=== PATIENT | female | born 1990 | race Caucasian/White ===

== ENCOUNTER 2016-08-31 01:17 | Emergency (ER) | payer BC ==
[2016-08-31] MEDS ORDERED: Ibuprofen TAB* 600 MG PO ONE (02:36)
[2016-08-31 03:29] VITALS: BP 133/72
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
== END 2016-08-31 03:28 | disposition home or self-care (01) ==
LOC: ED 01:17
DX: S09.90XA Unspecified injury of head, initial encounter (principal); S13.9XXA Sprain of joints and ligaments of unspecified parts of neck, initial encounter; M54.9 Dorsalgia, unspecified; S00.83XA Contusion of other part of head, initial encounter; R04.0 Epistaxis; R58 Hemorrhage, not elsewhere classified; Y09 Assault by unspecified means; Y93.9 Activity, unspecified; Y92.9 Unspecified place or not applicable
CPT/HCPCS: 70450; 71020; 72050; 99282; A9270-GY

== ENCOUNTER 2016-11-04 09:25 | Emergency (ER) | payer BC ==
[2016-11-04] MEDS ORDERED: Morphine INJ* 4 MG/ML 1 ML SYRINGE IV ONE (10:16)
[2016-11-04] MEDS ORDERED: Ondansetron INJ* 2 MG/ML VIAL IV ONE (10:16)
[2016-11-04] MEDS: NS 0.9% 1000 ML* 2,000 ML IV ONE (10:48)
[2016-11-04 11:00] LABS: Hematocrit 38 % (35-47); Hemoglobin 12.9 g/dl (12.0-16.0); Mean Corpuscular HGB Conc 34 g/dl (31-36); Mean Corpuscular Hemoglobin 32 pg (27-31); Mean Corpuscular Volume 95 fL (80-97); Mean Platelet Volume 8 um3 (7.4-10.4); Red Blood Count 3.98 10^6/ul (4.0-5.4); Red Cell Distribution Width 13 % (10.5-15); White Blood Count 7.6 10^3/ul (3.5-10.8)
[2016-11-04 11:02] LABS: Urine Bilirubin Negative (Negative); Urine Glucose Negative (Negative); Urine Nitrite Negative (Negative)
[2016-11-04 11:19] LABS: Albumin 4.3 g/dL (3.2-5.2); BUN/Creatinine Ratio 25.4 (8-20); C Reactive Protein 2.52 mg/L (< 5.00); Calcium 9.3 mg/dL (8.6-10.3); EGFR African American 135.8 (>60); EGFR Non-African American 105.6 (>60); Globulin 3.1 g/dL (2-4); Potassium 4.4 mmol/L (3.5-5.0); Total Bilirubin 0.3 mg/dL (0.2-1.0); Total Protein 7.4 g/dL (6.4-8.9)
[2016-11-04] MEDS ORDERED: Iohexol 300* (CONTRAST) 10 ML SDV IV ONE (11:33)
--- NOTE | 2016-11-04 12:11 | RAD ---
INDICATION: Left pelvic pain COMPARISON: CT November 04, 2016; pelvic sonogram 2016 TECHNIQUE: Longitudinal and transverse transvaginal scans of the pelvis were obtained. FINDINGS: Uterus: The uterus is normal in size. There are no focal masses. The uterus measures 6.5 x 2.6 x 4.3 cm. Endometrial thickness: The endometrial thickness is measured at 0.2 cm. There is an IUD in expected position. Free fluid: There is no significant free fluid . Ovaries: The ovaries are normal in size. The right ovary measures 2.7 x 1.5 x 2.4 cm. The left ovary measures 2.5 x 1.8 x 1.8 cm. There are small follicles bilaterally.. Doppler interrogation demonstrates flow to each ovary. Other: None IMPRESSION: MULTIPLE SMALL FOLLICLES. IUD IN EXPECTED POSITION.
--- NOTE | 2016-11-04 12:21 | RAD ---
INDICATION: Abdominal pain. Rectal bleeding. History of ulcerative colitis. COMPARISON: CT May 22, 2016 TECHNIQUE: Axial source images were obtained from the hemidiaphragms to the symphysis pubis following administration of oral and intravenous contrast. 85 mL Omnipaque 300 was utilized. Coronal and sagittal reconstructed images were acquired. Lung bases: The lung bases are clear. Liver: The liver is normal in size. There are no masses. There is no ductal dilatation. Gallbladder: There are no calcified gallstones. There is no evidence of wall thickening or pericholecystic fluid. Spleen: The spleen is normal in size. There are no masses. Pancreas: There is no focal pancreatic mass or ductal dilatation. Adrenal glands: There is no evidence of adrenal mass. Kidneys: The kidneys are normal in size and position. There are prompt nephrograms and there is prompt excretion bilaterally. There are no renal parenchymal masses. There is no evidence of nephrolithiasis. Adenopathy: There is no evidence of adenopathy by size criteria. Fluid collections: There are no free or localized fluid collections. Vessels:There are no significant atherosclerotic changes involving the aorta. There is no focal aneurysm. The iliac vessels are normal in caliber. The IVC appears normal. GI tract: There is limited oral contrast opacification. There is a small amount of contrast within the small bowel. The stomach is grossly normal. The the small bowel is normal. The appendix is normal. There is stool throughout the right and transverse colon. The descending colon is decompressed. The may be minor mucosal thickening. Evaluation is limited as the bowel is not distended and there is no oral contrast. There are no findings of obstruction. There are no findings of perforation Pelvic organs: The uterus and adnexa appear normal. There is an IUD in expected position Bladder: There are no bladder masses. Abdominal and pelvic soft tissues: The extraperitoneal abdominal and pelvic soft tissues appear normal.. Osseous structures: There are no acute osseous findings. Other: None IMPRESSION: NO ACUTE CT FINDINGS. NO MASS OR INFLAMMATORY CHANGES.
[2016-11-04 14:18] VITALS: BP 136/84
--- NOTE | 2016-11-04 18:34 | ED ---
Jayme Luna Benjamin, scribed for Eric Ricks MD on 11/04/16 at 1020 . Abdominal Pain/Female - HPI Summary HPI Summary: 25yo female c/o LLQ pain and bright red bloody BM for 3-4 weeks. Pt started to get nauseous as well recently. Pt states that her pain worsens when she has BM. Pt denies any back pain. Pt has hx of ulcerative colitis, but was off meds for a year. Pt is also concerned about an ovarian cyst. Pt drinks ETOH occasionally , and does not smoke cigarettes. - History of Current Complaint Chief Complaint: EDAbdPain Stated Complaint: ABD PAIN Time Seen by Provider: 11/04/16 09:56 Hx Obtained From: Patient Hx Last Menstrual Period: 06/29/14 Onset/Duration: Gradual Onset, Lasting Weeks - 3-4 weeks, Still Present, Worse Since - few days Timing: Constant Severity Initially: Moderate Severity Currently: Moderate Pain Intensity: 7 Location: Discrete At: LLQ Radiates: No Aggravating Factor(s): Other: - BM Alleviating Factor(s): Nothing Associated Signs and Symptoms: Positive: Blood in Stool, Nausea, Vomiting, Diarrhea. Negative: Back Pain Allergies/Adverse Reactions: Allergies Allergy/AdvReac Type Severity Reaction Status Date / Time Latex Allergy Mild Rash Verified 10/15/15 09:38 PMH/Surg Hx/FS Hx/Imm Hx Endocrine/Hematology History: Reports: Hx Anemia Denies: Hx Anticoagulant Therapy, Hx Blood Disorders, Hx Blood Transfusions, Hx Bone Marrow Disease, Hx Diabetes, Hx Systemic Lupus Erythematosus, Hx Sickle Cell Disease, Hx Thyroid Disease, Hx Unexplained Bleeding Cardiovascular History: Reports: Other Cardiovascular Problems/Disorders - Tachy -admitted to [facility] on 08/30/13 Denies: Hx Aneurysm, Hx Angina, Hx Angioplasty, Hx Auto Implanted Cardiovert Defib, Hx Cardiac Arrest, Hx Cardiomegaly, Hx Congenital Heart Disease, Hx Congestive Heart Failure, Hx Coronary Artery Disease, Hx Deep Vein Thrombosis, Hx Embolism, Hx Hypercholesterolemia, Hx Hypotension, Hx Hypertension, Hx Pacemaker/ICD, Hx Peripheral Vascular Disease, Hx Rheumatic Fever, Hx Syncope, Hx Valvular Heart Disease Respiratory History: Reports: Hx Seasonal Allergies Denies: Hx Asthma, Hx Chronic Bronchitis, Hx Chronic Obstructive Pulmonary Disease (COPD), Hx Cystic Fibrosis, Hx Lung Cancer, Hx Pleural Effusion, Hx Pneumonia, Hx Pulmonary Edema, Hx Pulmonary Embolism, Hx Sleep Apnea GI History: Reports: Hx Irritable Bowel, Other GI Disorders - Ulcerative colitis Denies: Hx Cirrhosis, Hx Crohn's Disease, Hx Diverticulosis, Hx Gall Bladder Disease, Hx Gastroesophageal Reflux Disease, Hx Gastrointestinal Bleed, Hx Hiatal Hernia, Hx Jaundice, Hx Obstructive Bowel, Hx Ileostomy, Hx Pyloric Stenosis, Hx Ulcer Sensory History: Reports: Hx Contacts or Glasses Denies: Hx Cataracts, Hx Eye Injury, Hx Eye Prosthesis, Hx Glaucoma, Hx Legally Blind, Hx Macular Degeneration, Hx Vision Problem, Hx Deafness, Hx Hearing Aid, Hx Hearing Problem, Other Sensory Impairments Opthamlomology History: Reports: Hx Contacts or Glasses Denies: Hx Cataracts, Hx Eye Injury, Hx Eye Prosthesis, Hx Glaucoma, Hx Legally Blind, Hx Macular Degeneration, Hx Vision Problem, Other Sensory Impairments Neurological History: Reports: Hx Headaches - after remicade infusions, Hx Migraine Denies: Hx Dementia, Hx Developmental Delay, Hx Nerve Disease, Hx Seizures, Hx Spinal Cord Injury, Hx Transient Ischemic Attacks (TIA) Psychiatric History: Denies: Hx Panic Disorder - Surgical History Surgery Procedure, Year, and Place: Hammer toe corrections, tear duct, cyst removed from left wrist, tonsillectomy Hx Anesthesia Reactions: No - Immunization History Date of Tetanus Vaccine: within 10 years Date of Influenza Vaccine: none Infectious Disease History: No Infectious Disease History: Denies: Hx Clostridium Difficile, Hx Hepatitis, Hx Human Immunodeficiency Virus (HIV), Hx of Known/Suspected MRSA, Hx Shingles, Hx Tuberculosis, Hx Known/ Suspected VRE, Traveled Outside the [place] in Last 30 Days - Family History Known Family History: Positive: Diabetes - Social History Occupation: Employed Full-time Lives: Alone Alcohol Use: Occasionally Hx Substance Use: No Substance Use Type: Reports: None Hx Tobacco Use: No Smoking Status (MU): Never Smoked Tobacco Review of Systems Constitutional: Negative Eyes: Negative ENT: Negative Cardiovascular: Negative Respiratory: Negative Positive: Abdominal Pain - LLQ, Vomiting, Diarrhea - bloody, Nausea Genitourinary: Negative Musculoskeletal: Negative Skin: Negative Neurological: Negative Psychological: Normal All Other Systems Reviewed And Are Negative: Yes Physical Exam - Summary Physical Exam Summary: The patient is well-nourished in no acute distress and in no acute pain. The skin is warm and dry and skin color reflects adequate perfusion. HEENT: The head is normocephalic and atraumatic. The pupils are equal and reactive. The conjunctivae are clear and without drainage. Nares are patent and without drainage. Mouth reveals dry mucous membranes and the throat is without erythema and exudate. The external ears are intact. The ear canals are patent and without drainage. The tympanic membranes are intact. Neck is supple with full range of motion and non-tender. There are no carotid bruits. There is no neck vein distension. Respiratory: Chest is non-tender. Lungs are clear to auscultation and breath sounds are symmetrical and equal. Cardiovascular: Hear is regular rate and rhythm. There is no murmur or rub auscultated. There is no peripheral edema and pulses are symmetrical and equal. Abdomen: The abdomen is soft. LLQ pain. There are normal bowel sounds heard in all four quadrants and there is no organomegaly palpated. Musculoskeletal: There is no back pain noted. No CVA tenderness. Extremities are non-tender with full range of motion. There is good capillary refill. There is no peripheral edema or calf tenderness elicited. Neurological: Patient is alert and oriented to person, place and time. The patient has symmetrical motor strength in all four extremities. Cranial nerves are grossly intact. Deep tendon reflexes are symmetrical and equal in all four extremities. Psychiatric: The patient has an appropriate affect and does not exhibit any anxiety or depression. Triage Information Reviewed: Yes Vital Signs On Initial Exam: Initial Vitals Temp Pulse Resp BP Pulse Ox 97.9 F 71 20 132/77 100 11/04/16 09:28 11/04/16 09:28 11/04/16 09:28 11/04/16 09:28 11/04/16 09:28 Vital Signs Reviewed: Yes Diagnostics - Vital Signs Vital Signs Temp Pulse Resp BP Pulse Ox 11/04/16 09:31 97.9 F 71 20 132/77 100 11/04/16 09:28 97.9 F 71 20 132/77 100 - Laboratory Lab Results: Lab Results 11/04/16 11/04/16 11/04/16 Range/Units 10:43 10:43 10:43 WBC 7.6 (3.5-10.8) 10^3/ul RBC 3.98 L (4.0-5.4) 10^6/ul Hgb 12.9 (12.0-16.0) g/dl Hct 38 (35-47) % MCV 95 (80-97) fL MCH 32 H (27-31) pg MCHC 34 (31-36) g/dl RDW 13 (10.5-15) % Plt Count 294 (150-450) 10^3/ul MPV 8 (7.4-10.4) um3 Neut % (Auto) 56.2 (38-83) % Lymph % (Auto) 36.1 (25-47) % [place] % (Auto) 6.3 (1-9) % Eos % (Auto) 0.9 (0-6) % Baso % (Auto) 0.5 (0-2) % Absolute Neuts (auto) 4.3 (1.5-7.7) 10^3/ul Absolute Lymphs (auto) 2.7 (1.0-4.8) 10^3/ul Absolute Monos (auto) 0.5 (0-0.8) 10^3/ul Absolute Eos (auto) 0.1 (0-0.6) 10^3/ul Absolute Basos (auto) 0 (0-0.2) 10^3/ul Absolute Nucleated RBC 0 10^3/ul Nucleated RBC % 0 Sodium 133 (133-145) mmol/L Potassium 4.4 (3.5-5.0) mmol/L Chloride 102 (101-111) mmol/L Carbon Dioxide 26 (22-32) mmol/L Anion Gap 5 (2-11) mmol/L BUN 17 (6-24) mg/dL Creatinine 0.67 (0.51-0.95) mg/dL Est GFR ( Amer) 135.8 (>60) Est GFR (Non-Af Amer) 105.6 (>60) BUN/Creatinine Ratio 25.4 H (8-20) Glucose 92 (70-100) mg/dL Lactic Acid (0.5-2.0) mmol/L Calcium 9.3 (8.6-10.3) mg/dL Total Bilirubin 0.30 (0.2-1.0) mg/dL AST 23 (13-39) U/L ALT 26 (7-52) U/L Alkaline Phosphatase 70 (34-104) U/L C-Reactive Protein 2.52 (< 5.00) mg/L Total Protein 7.4 (6.4-8.9) g/dL Albumin 4.3 (3.2-5.2) g/dL Globulin 3.1 (2-4) g/dL Albumin/Globulin Ratio 1.4 (1-3) Amylase 25 L (29-103) U/L Lipase 14 (11.0-82.0) U/L Urine Color Straw Urine Appearance Clear Urine pH 5.0 (5-9) Ur Specific [place] 1.005 L (1.010-1.030) Urine Protein Negative (Negative) Urine Ketones Negative (Negative) Urine Blood Negative (Negative) Urine Nitrate Negative (Negative) Urine Bilirubin Negative (Negative) Urine Urobilinogen Negative (Negative) Ur Leukocyte Esterase Negative (Negative) Urine Glucose Negative (Negative) 11/04/16 Range/Units 10:43 WBC (3.5-10.8) 10^3/ul RBC (4.0-5.4) 10^6/ul Hgb (12.0-16.0) g/dl Hct (35-47) % MCV (80-97) fL MCH (27-31) pg MCHC (31-36) g/dl RDW (10.5-15) % Plt Count (150-450) 10^3/ul MPV (7.4-10.4) um3 Neut % (Auto) (38-83) % Lymph % (Auto) (25-47) % [place] % (Auto) (1-9) % Eos % (Auto) (0-6) % Baso % (Auto) (0-2) % Absolute Neuts (auto) (1.5-7.7) 10^3/ul Absolute Lymphs (auto) (1.0-4.8) 10^3/ul Absolute Monos (auto) (0-0.8) 10^3/ul Absolute Eos (auto) (0-0.6) 10^3/ul Absolute Basos (auto) (0-0.2) 10^3/ul Absolute Nucleated RBC 10^3/ul Nucleated RBC % Sodium (133-145) mmol/L Potassium (3.5-5.0) mmol/L Chloride (101-111) mmol/L Carbon Dioxide (22-32) mmol/L Anion Gap (2-11) mmol/L BUN (6-24) mg/dL Creatinine (0.51-0.95) mg/dL Est GFR ( Amer) (>60) Est GFR (Non-Af Amer) (>60) BUN/Creatinine Ratio (8-20) Glucose (70-100) mg/dL Lactic Acid 0.7 (0.5-2.0) mmol/L Calcium (8.6-10.3) mg/dL Total Bilirubin (0.2-1.0) mg/dL AST (13-39) U/L ALT (7-52) U/L Alkaline Phosphatase (34-104) U/L C-Reactive Protein (< 5.00) mg/L Total Protein (6.4-8.9) g/dL Albumin (3.2-5.2) g/dL Globulin (2-4) g/dL Albumin/Globulin Ratio (1-3) Amylase (29-103) U/L Lipase (11.0-82.0) U/L Urine Color Urine Appearance Urine pH (5-9) Ur Specific [place] (1.010-1.030) Urine Protein (Negative) Urine Ketones (Negative) Urine Blood (Negative) Urine Nitrate (Negative) Urine Bilirubin (Negative) Urine Urobilinogen (Negative) Ur Leukocyte Esterase (Negative) Urine Glucose (Negative) Result Diagrams: 11/04/16 10:43 11/04/16 10:43 Lab Statement: Any lab studies that have been ordered have been reviewed, and results considered in the medical decision making process. - CT CT A/P W CT Interpretation: No Acute Changes CT Interpretation Completed By: Radiologist - Ultrasound No standard instances Ultrasound Interpretation: Positive (See Comments) - Transvaginal US IMPRESSION : MULTIPLE SMALL FOLLICLES. IUD IN EXPECTED POSITION. Ultrasound Interpretation Completed By: Radiologist Re-Evaluation - Re-Evaluation First Eval Re-Evaluation Time: 13:26 Change: Improved - states feeling better. No blood in stool while her stay in the ED. Comment: reviewed lab and imagin results with the pt, discussed follow up plan. Abdominal Pain Fem Course/Dx - Course Course Of Treatment: Will give pt zofran and percocet for her symptoms, and pt will follow up with Dr. Thayer. - Diagnoses Differential Diagnosis: Positive: Diverticulitis, Pancreatitis, Other - ulcerative colitis flair, colitis, dehydration Provider Diagnoses: Abdominal pain Discharge - Discharge Plan Condition: Stable Disposition: HOME Prescriptions: Ondansetron ODT TAB* [Zofran 4 MG Odt TAB*] 4 mg PO Q8H PRN #20 tab.odt PRN Reason: Nausea oxyCODONE/Acetamin 5/325 MG* [Percocet 5/325 TAB*] 1 tab PO Q6H PRN #20 tab MDD 4 PRN Reason: pain Patient Education Materials: Oxycodone/Acetaminophen (By mouth), Ondansetron ( By mouth) Forms: *Work Release Referrals: Christine Moon MD [Primary Care Provider] - Ravindra Thayer MD [Medical Doctor] - The documentation as recorded by the Jayme walters Benjamin accurately reflects the service I personally performed and the decisions made by me, Eric Ricks MD.
== END 2016-11-04 14:18 | disposition home or self-care (01) ==
LOC: ED 09:25
DX: R10.32 Left lower quadrant pain (principal); R11.2 Nausea with vomiting, unspecified; R19.7 Diarrhea, unspecified
CPT/HCPCS: 36415; 74177; 76830; 80053; 81003; 82150; 83605; 83690; 85025; 86140; 96374; 96375; 99282; J2270; J2405; Q9967

== ENCOUNTER 2016-11-17 14:14 | Emergency (ER) | payer BC ==
[2016-11-17] MEDS ORDERED: Ondansetron INJ* 2 MG/ML VIAL IV ONE ×2 (14:57→15:49)
[2016-11-17] MEDS ORDERED: NS 0.9% 1000 ML* 1,000 ML IV ONE (14:57)
[2016-11-17 15:41] LABS: Hematocrit 37 % (35-47); Hemoglobin 12.8 g/dl (12.0-16.0); Mean Corpuscular HGB Conc 34 g/dl (31-36); Mean Corpuscular Hemoglobin 32 pg (27-31); Mean Corpuscular Volume 93 fL (80-97); Mean Platelet Volume 8 um3 (7.4-10.4); Red Cell Distribution Width 13 % (10.5-15)
[2016-11-17] MEDS ORDERED: Morphine INJ* 4 MG/ML 1 ML SYRINGE IM ONE (15:49)
[2016-11-17 16:02] LABS: ALT 18 U/L (7-52); AST 18 U/L (13-39); Albumin 4.4 g/dL (3.2-5.2); Alkaline Phosphatase 50 U/L (34-104); Amylase 39 U/L (29-103); Anion Gap 10 mmol/L (2-11); BUN/Creatinine Ratio 25.4 (8-20); Blood Urea Nitrogen 18 mg/dL (6-24); C Reactive Protein 2.39 mg/L (< 5.00); CO2 Carbon Dioxide 24 mmol/L (22-32); Calcium 9.3 mg/dL (8.6-10.3); Chloride 103 mmol/L (101-111); EGFR Non-African American 98.7 (>60); Globulin 3.1 g/dL (2-4); Glucose 85 mg/dL (70-100); Lipase < 10 U/L (11.0-82.0); Potassium 3.9 mmol/L (3.5-5.0); Sodium 137 mmol/L (133-145); Total Protein 7.5 g/dL (6.4-8.9)
[2016-11-17 16:25] LABS: Urine Bacteria Absent (Absent); Urine Bilirubin Negative (Negative); Urine Glucose Negative (Negative); Urine Nitrite Negative (Negative)
--- NOTE | 2016-11-17 16:32 | RAD ---
HISTORY: Abdominal pain COMPARISONS: CT dated November 04, 2016 VIEWS: [facility] FINDINGS: BOWEL: There is a nonobstructive bowel gas pattern. There is minimal stool within the colon. CALCULI: There are no abnormal calculi. BONES AND SOFT TISSUES: There are no osseous abnormalities. OTHER FINDINGS: The lung bases are clear. There is no subphrenic gas. IMPRESSION: NONOBSTRUCTIVE BOWEL GAS PATTERN. NO SUBPHRENIC GAS.
[2016-11-17] MEDS ORDERED: predniSONE TAB* 20 MG PO ONE (17:12)
[2016-11-17 17:30] VITALS: BP 110/72
--- NOTE | 2016-11-17 18:51 | ED ---
Jimmie Luna Auryana, scribed for Harley Floyd MD on 11/17/16 at 1529 . GI/ HPI - HPI Summary HPI Summary: 25 year old female present to the ED with vomiting starting last night and unimproved diarrhea (numerous episodes) starting last night s/p a few glasses of wine. She reports that the cramping around the merlyn-umbilical area (10) with diarrhea- characterized as loose stools with mucous and small amounts of blood. Vomiting is characterized as bilious and foamy. Patient reports that her symptoms were probably aggravated by a few glasses of wine - typically aggravated by stress. Abdominal cramping is improved by BMs. Patient states that she called her PCP who recommended that she be seen in the ER for fluids. She was seen here 1 week ago with similar episodes - severe abdominal pain and diarrhea. PMHx is significant for ulcerative colitis, and IBS - was currently being treated but stopped medications and changed diet - improved symptoms - now triggered by stress. FHx is significant for colon issues, diverticulitis, HTN and DM. SHx is significant for alcohol (last night), but denies any tobacco or recreational drugs. - History of Current Complaint Chief Complaint: EDNauseaVomitDiarrh Time Seen by Provider: 11/17/16 14:40 Stated Complaint: ABD PAIN/N/D/V Hx Obtained From: Patient Onset/Duration: Started Days Ago - last night s/p wine Timing: Constant Severity: Moderate Current Severity: Moderate Pain Intensity: 7 Location of Pain: Diffuse Pain Characteristics: Cramping Associated Signs and Symptoms: Positive: Nausea, Vomiting, Blood w/Stool, Diarrhea, Abdominal Pain Aggravating Factor(s): Liquids - alcohol Alleviating Factor(s): Bowel Movements - Symptom Characteristics Vomiting Vomiting Characteristics: Bilious Diarrhea Characteristics: Other - loose stools with small amount of blood - Allergy/Home Medications Allergies/Adverse Reactions: Allergies Allergy/AdvReac Type Severity Reaction Status Date / Time Latex Allergy Mild Rash Verified 11/17/16 14:19 PMH/Surg Hx/FS Hx/Imm Hx Endocrine/Hematology History: Reports: Hx Anemia Denies: Hx Anticoagulant Therapy, Hx Blood Disorders, Hx Blood Transfusions, Hx Bone Marrow Disease, Hx Diabetes, Hx Systemic Lupus Erythematosus, Hx Sickle Cell Disease, Hx Thyroid Disease, Hx Unexplained Bleeding Cardiovascular History: Reports: Other Cardiovascular Problems/Disorders - Tachy -admitted to [facility] on 08/30/13 Denies: Hx Aneurysm, Hx Angina, Hx Angioplasty, Hx Auto Implanted Cardiovert Defib, Hx Cardiac Arrest, Hx Cardiomegaly, Hx Congenital Heart Disease, Hx Congestive Heart Failure, Hx Coronary Artery Disease, Hx Deep Vein Thrombosis, Hx Embolism, Hx Hypercholesterolemia, Hx Hypotension, Hx Hypertension, Hx Pacemaker/ICD, Hx Peripheral Vascular Disease, Hx Rheumatic Fever, Hx Syncope, Hx Valvular Heart Disease Respiratory History: Reports: Hx Seasonal Allergies Denies: Hx Asthma, Hx Chronic Bronchitis, Hx Chronic Obstructive Pulmonary Disease (COPD), Hx Cystic Fibrosis, Hx Lung Cancer, Hx Pleural Effusion, Hx Pneumonia, Hx Pulmonary Edema, Hx Pulmonary Embolism, Hx Sleep Apnea GI History: Reports: Hx Irritable Bowel, Other GI Disorders - Ulcerative colitis Denies: Hx Cirrhosis, Hx Crohn's Disease, Hx Diverticulosis, Hx Gall Bladder Disease, Hx Gastroesophageal Reflux Disease, Hx Gastrointestinal Bleed, Hx Hiatal Hernia, Hx Jaundice, Hx Obstructive Bowel, Hx Ileostomy, Hx Pyloric Stenosis, Hx Ulcer Sensory History: Reports: Hx Contacts or Glasses Denies: Hx Cataracts, Hx Eye Injury, Hx Eye Prosthesis, Hx Glaucoma, Hx Legally Blind, Hx Macular Degeneration, Hx Vision Problem, Hx Deafness, Hx Hearing Aid, Hx Hearing Problem, Other Sensory Impairments Opthamlomology History: Reports: Hx Contacts or Glasses Denies: Hx Cataracts, Hx Eye Injury, Hx Eye Prosthesis, Hx Glaucoma, Hx Legally Blind, Hx Macular Degeneration, Hx Vision Problem, Other Sensory Impairments Neurological History: Reports: Hx Headaches - after remicade infusions, Hx Migraine Denies: Hx Dementia, Hx Developmental Delay, Hx Nerve Disease, Hx Seizures, Hx Spinal Cord Injury, Hx Transient Ischemic Attacks (TIA) Psychiatric History: Denies: Hx Panic Disorder - Surgical History Surgery Procedure, Year, and Place: Hammer toe corrections, tear duct, cyst removed from left wrist, tonsillectomy Hx Anesthesia Reactions: No - Immunization History Date of Tetanus Vaccine: within 10 years Date of Influenza Vaccine: none Infectious Disease History: No Infectious Disease History: Denies: Hx Clostridium Difficile, Hx Hepatitis, Hx Human Immunodeficiency Virus (HIV), Hx of Known/Suspected MRSA, Hx Shingles, Hx Tuberculosis, Hx Known/ Suspected VRE, Traveled Outside the [place] in Last 30 Days - Family History Known Family History: Positive: Diabetes - Social History Occupation: Employed Full-time - [employer] [place] Lives: Alone Alcohol Use: Occasionally Hx Substance Use: No Substance Use Type: Reports: None Hx Tobacco Use: No Smoking Status (MU): Never Smoked Tobacco Review of Systems Constitutional: Negative Negative: Fever Eyes: Negative ENT: Negative Cardiovascular: Negative Respiratory: Negative Positive: Abdominal Pain, Vomiting, Diarrhea Genitourinary: Negative Musculoskeletal: Negative Skin: Negative Neurological: Negative Psychological: Normal All Other Systems Reviewed And Are Negative: Yes Physical Exam - Summary Physical Exam Summary: VITAL SIGNS: Reviewed. GENERAL: Patient is a well-developed and nourished female who is lying comfortable in the stretcher. Patient is not in any acute respiratory distress. HEAD AND FACE: Normocephalic and atraumatic. EYES: PERRLA, EOMI x 2, No injected conjunctiva. EARS: Hearing grossly intact. Ear canals and tympanic membranes are WNL. MOUTH: dry oropharynx butotherwise within normal limits. NECK: Supple, trachea is midline, no adenopathy, no JVD. CHEST: Symmetric, no tenderness at palpation LUNGS: Clear to auscultation bilaterally. No wheezing or crackles. CVS: RRR, S1 and S2 present, no murmurs or gallops appreciated. ABDOMEN: Soft, non-tender. No signs of distention. Positive bowel sounds. No rebound no guarding, and no masses palpated. No abdominal bruit or pulsations. EXTREMITIES: FROM in all major joints, no edema, no cyanosis or clubbing. NEURO: Alert and oriented x 3. No acute neurological deficits. Speech is normal. SKIN: Dry and warm. Triage Information Reviewed: Yes Vital Signs On Initial Exam: Initial Vitals Temp Pulse Resp BP Pulse Ox 98.1 F 102 18 119/86 100 11/17/16 14:20 11/17/16 14:20 11/17/16 14:20 11/17/16 14:20 11/17/16 14:20 Vital Signs Reviewed: Yes Diagnostics - Vital Signs Vital Signs Temp Pulse Resp BP Pulse Ox 11/17/16 14:20 98.1 F 102 18 119/86 100 - Laboratory Lab Results: Lab Results 11/17/16 11/17/16 11/17/16 Range/Units 15:17 15:17 15:17 WBC 14.0 H (3.5-10.8) 10^3/ul RBC 4.00 (4.0-5.4) 10^6/ul Hgb 12.8 (12.0-16.0) g/dl Hct 37 (35-47) % MCV 93 (80-97) fL MCH 32 H (27-31) pg MCHC 34 (31-36) g/dl RDW 13 (10.5-15) % Plt Count 316 (150-450) 10^3/ul MPV 8 (7.4-10.4) um3 Neut % (Auto) 76.5 (38-83) % Lymph % (Auto) 17.0 L (25-47) % [place] % (Auto) 5.8 (1-9) % Eos % (Auto) 0.3 (0-6) % Baso % (Auto) 0.4 (0-2) % Absolute Neuts (auto) 10.7 H (1.5-7.7) 10^3/ul Absolute Lymphs (auto) 2.4 (1.0-4.8) 10^3/ul Absolute Monos (auto) 0.8 (0-0.8) 10^3/ul Absolute Eos (auto) 0 (0-0.6) 10^3/ul Absolute Basos (auto) 0.1 (0-0.2) 10^3/ul Absolute Nucleated RBC 0 10^3/ul Nucleated RBC % 0 Sodium 137 (133-145) mmol/L Potassium 3.9 (3.5-5.0) mmol/L Chloride 103 (101-111) mmol/L Carbon Dioxide 24 (22-32) mmol/L Anion Gap 10 (2-11) mmol/L BUN 18 (6-24) mg/dL Creatinine 0.71 (0.51-0.95) mg/dL Est GFR ( Amer) 127.0 (>60) Est GFR (Non-Af Amer) 98.7 (>60) BUN/Creatinine Ratio 25.4 H (8-20) Glucose 85 (70-100) mg/dL Lactic Acid 0.9 (0.5-2.0) mmol/L Calcium 9.3 (8.6-10.3) mg/dL Total Bilirubin 0.60 (0.2-1.0) mg/dL AST 18 (13-39) U/L ALT 18 (7-52) U/L Alkaline Phosphatase 50 (34-104) U/L C-Reactive Protein 2.39 (< 5.00) mg/L Total Protein 7.5 (6.4-8.9) g/dL Albumin 4.4 (3.2-5.2) g/dL Globulin 3.1 (2-4) g/dL Albumin/Globulin Ratio 1.4 (1-3) Amylase 39 (29-103) U/L Lipase < 10 L (11.0-82.0) U/L Beta HCG, Quant < 0.60 mIU/mL Urine Color Urine Appearance Urine pH (5-9) Ur Specific [place] (1.010-1.030) Urine Protein (Negative) Urine Ketones (Negative) Urine Blood (Negative) Urine Nitrate (Negative) Urine Bilirubin (Negative) Urine Urobilinogen (Negative) Ur Leukocyte Esterase (Negative) Urine WBC (Auto) (Absent) Urine RBC (Auto) (Absent) Ur Squamous Epith Cells (Absent) Urine Bacteria (Absent) Urine Glucose (Negative) 11/17/16 Range/Units 16:05 WBC (3.5-10.8) 10^3/ul RBC (4.0-5.4) 10^6/ul Hgb (12.0-16.0) g/dl Hct (35-47) % MCV (80-97) fL MCH (27-31) pg MCHC (31-36) g/dl RDW (10.5-15) % Plt Count (150-450) 10^3/ul MPV (7.4-10.4) um3 Neut % (Auto) (38-83) % Lymph % (Auto) (25-47) % [place] % (Auto) (1-9) % Eos % (Auto) (0-6) % Baso % (Auto) (0-2) % Absolute Neuts (auto) (1.5-7.7) 10^3/ul Absolute Lymphs (auto) (1.0-4.8) 10^3/ul Absolute Monos (auto) (0-0.8) 10^3/ul Absolute Eos (auto) (0-0.6) 10^3/ul Absolute Basos (auto) (0-0.2) 10^3/ul Absolute Nucleated RBC 10^3/ul Nucleated RBC % Sodium (133-145) mmol/L Potassium (3.5-5.0) mmol/L Chloride (101-111) mmol/L Carbon Dioxide (22-32) mmol/L Anion Gap (2-11) mmol/L BUN (6-24) mg/dL Creatinine (0.51-0.95) mg/dL Est GFR ( Amer) (>60) Est GFR (Non-Af Amer) (>60) BUN/Creatinine Ratio (8-20) Glucose (70-100) mg/dL Lactic Acid (0.5-2.0) mmol/L Calcium (8.6-10.3) mg/dL Total Bilirubin (0.2-1.0) mg/dL AST (13-39) U/L ALT (7-52) U/L Alkaline Phosphatase (34-104) U/L C-Reactive Protein (< 5.00) mg/L Total Protein (6.4-8.9) g/dL Albumin (3.2-5.2) g/dL Globulin (2-4) g/dL Albumin/Globulin Ratio (1-3) Amylase (29-103) U/L Lipase (11.0-82.0) U/L Beta HCG, Quant mIU/mL Urine Color Yellow Urine Appearance Clear Urine pH 7.0 (5-9) Ur Specific [place] 1.028 (1.010-1.030) Urine Protein 1+(30 mg/dl) H (Negative) Urine Ketones 1+ H (Negative) Urine Blood Negative (Negative) Urine Nitrate Negative (Negative) Urine Bilirubin Negative (Negative) Urine Urobilinogen Negative (Negative) Ur Leukocyte Esterase Negative (Negative) Urine WBC (Auto) Absent (Absent) Urine RBC (Auto) Absent (Absent) Ur Squamous Epith Cells Present H (Absent) Urine Bacteria Absent (Absent) Urine Glucose Negative (Negative) Result Diagrams: 11/17/16 15:17 11/17/16 15:17 Lab Statement: Any lab studies that have been ordered have been reviewed, and results considered in the medical decision making process. - Radiology ABD XR Xray Interpretation: Positive (See Comments) - IMPRESSION: NONOBSTRUCTIVE BOWEL GAS PATTERN. NO SUBPHRENIC GAS. Radiology Interpretation Completed By: Radiologist - EKG 14:28 EKG Interpretation: NSR @ 95 BPM, NO ST ELEVATIONS GIGU Course/Dx - Course Course Of Treatment: 25 year old female present to the ED with vomiting starting last night and unimproved diarrhea (numerous episodes) starting last night s/p a few glasses of wine. She reports that the cramping around the merlyn- umbilical area (10) with diarrhea- characterized as loose stools with mucous and small amounts of blood. Vomiting is characterized as bilious and foamy. Patient reports that her symptoms were probably aggravated by a few glasses of wine - typically aggravated by stress. Abdominal cramping is improved by BMs. Patient states that she called her PCP who recommended that she be seen in the ER for fluids. She was seen here 1 week ago with similar episodes - severe abdominal pain and diarrhea. PMHx is significant for ulcerative colitis, and IBS - was currently being treated but stopped medications and changed diet - improved symptoms - now triggered by stress. FHx is significant for colon issues , diverticulitis, HTN and DM. SHx is significant for alcohol (last night), but denies any tobacco or recreational drugs. Assessment/Plan: Test results WNL except WBC 14.0. UA shows no U.T.I. ABD XR IMPRESSION: NONOBSTRUCTIVE BOWEL GAS PATTERN. NO SUBPHRENIC GAS. In ED course , given IV fluids, Zofran for nausea/vomiting and morphine for pain. After these medications symptoms improve and patient felt better. She was not able to give a stool sample. I discussed the case with Dr. Hein and he recommend to start prednisone 40 mg for the next 5 days. At this point, patient is feeling better . Patient is hemodynamically stable and A&O x3. Patient will be discharged home with follow up with Dr. Hein. - Diagnoses Provider Diagnoses: Ulcerative colitis, Nausea & vomiting, Diarrhea - Physician Notifications Discussed Care Of Patient With: DR. HEIN Time Discussed With Above Provider: 16:54 - RECOMMENDS DISCHARGE HOME Discharge - Discharge Plan Condition: Stable Disposition: HOME Prescriptions: HYDROcodone/ACETAMIN 5-325 MG* [[place] 5-325 TAB*] 1 tab PO Q6H PRN #10 tab MDD 4 tabs / week PRN Reason: Pain Ondansetron TAB* [Zofran 4 MG Tab*] 4 mg PO Q6H PRN #12 tab PRN Reason: Vomiting predniSONE TAB* [Deltasone TAB*] 40 mg PO DAILY #8 tab Patient Education Materials: Ulcerative Colitis (ED), Acute Nausea and Vomiting (ED), Acute Diarrhea (ED), Ondansetron (By mouth), Prednisone (By mouth ) Referrals: Ravindra Hein MD [Medical Doctor] - 2 Days The documentation as recorded by the Jimmie walters Auryana accurately reflects the service I personally performed and the decisions made by , Harley Floyd MD.
== END 2016-11-17 17:32 | disposition home or self-care (01) ==
LOC: ED 14:14
DX: K51.90 Ulcerative colitis, unspecified, without complications (principal); R11.2 Nausea with vomiting, unspecified; R19.7 Diarrhea, unspecified
CPT/HCPCS: 36415; 74020; 80053; 81003; 81015; 82150; 83605; 83690; 84702; 85025; 86140; 93005; 96360; 96372; 96374; 96376; 99282; J2270; J2405; J7512

== ENCOUNTER 2016-12-27 08:48 | Emergency (ER) | payer BC ==
[2016-12-27] MEDS ORDERED: Ondansetron INJ* 2 MG/ML VIAL IV ONE ×2 (09:06→09:47)
[2016-12-27] MEDS ORDERED: NS 0.9% 1000 ML* 1,000 ML IV ONE (09:06)
[2016-12-27 09:51] LABS: Hematocrit 38 % (35-47); Mean Corpuscular HGB Conc 34 g/dl (31-36); Mean Corpuscular Hemoglobin 33 pg (27-31); Mean Corpuscular Volume 97 fL (80-97); Mean Platelet Volume 8 um3 (7.4-10.4); Red Blood Count 3.95 10^6/ul (4.0-5.4); Red Cell Distribution Width 13 % (10.5-15); White Blood Count 9.1 10^3/ul (3.5-10.8)
[2016-12-27] MEDS ORDERED: Ketorolac INJ* 30 MG/ML 1 ML VIAL IV PUSH ONE (09:59)
--- NOTE | 2016-12-27 10:04 | ED ---
Abdominal Pain/Female - HPI Summary HPI Summary: 26 female presents to the ED with vomiting and diarrhea that has been going on the past couple of days and has been happening intermittently the past few months. She has been seen multiple times in the ED over the past couple of week for similar symptoms. States yesterday she experienced RUQ abdominal pain that she described as sharp, cramping and intermittent 5/10. She states the abdominal pain has since improved and she now she just has a headache. She usually has pain on left side during UC flare ups. She states the nausea has become much more significant than previous episodes. Has not been able to eat and drink normally. Tried eating pasta and drinking a sip of coffee today however she vomited it up. Has taken Excedrin for her headache without relief. Denies tobacco or recreational drugs. Denies blood in vomit and diarrhea. LBM was diarrhea, last night. PMHx significant for ulcerative colitis, panreatitis and IBS. Not currently taking medications for, is attempting to watch diet. Admits to having 2 glasses of wine last night and does not know if this was a trigger however states the abdominal pain began before the glasses of wine. Denies urinary and genitalia symptoms. No recent take out, antibiotic use or travel. 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 - History of Current Complaint Chief Complaint: EDAbdPain Stated Complaint: NAUSEA/VOMITING Time Seen by Provider: 12/27/16 08:59 Hx Obtained From: Patient Hx Last Menstrual Period: 06/29/14, NUVA RING ?: No Onset/Duration: Gradual Onset, Lasting Weeks - intermittently, Still Present, Worse Since Timing: Intermittent Episode Lasting Severity Initially: Mild Severity Currently: Moderate Pain Intensity: 5 Pain Scale Used: 0-10 Numeric Location: Discrete At: RUQ - however has since improved and resolved Radiates: No Character: Sharp, Cramping Aggravating Factor(s): Food Alleviating Factor(s): Nothing Associated Signs and Symptoms: Positive: Nausea, Vomiting, Diarrhea Allergies/Adverse Reactions: Allergies Allergy/AdvReac Type Severity Reaction Status Date / Time Latex Allergy Mild Rash Verified 11/17/16 14:19 PMH/Surg Hx/FS Hx/Imm Hx Endocrine/Hematology History: Reports: Hx Anemia Denies: Hx Anticoagulant Therapy, Hx Blood Disorders, Hx Blood Transfusions, Hx Bone Marrow Disease, Hx Diabetes, Hx Systemic Lupus Erythematosus, Hx Sickle Cell Disease, Hx Thyroid Disease, Hx Unexplained Bleeding Cardiovascular History: Reports: Other Cardiovascular Problems/Disorders - Tachy -admitted to [facility] on 08/30/13 Denies: Hx Aneurysm, Hx Angina, Hx Angioplasty, Hx Auto Implanted Cardiovert Defib, Hx Cardiac Arrest, Hx Cardiomegaly, Hx Congenital Heart Disease, Hx Congestive Heart Failure, Hx Coronary Artery Disease, Hx Deep Vein Thrombosis, Hx Embolism, Hx Hypercholesterolemia, Hx Hypotension, Hx Hypertension, Hx Pacemaker/ICD, Hx Peripheral Vascular Disease, Hx Rheumatic Fever, Hx Syncope, Hx Valvular Heart Disease Respiratory History: Reports: Hx Seasonal Allergies Denies: Hx Asthma, Hx Chronic Bronchitis, Hx Chronic Obstructive Pulmonary Disease (COPD), Hx Cystic Fibrosis, Hx Lung Cancer, Hx Pleural Effusion, Hx Pneumonia, Hx Pulmonary Edema, Hx Pulmonary Embolism, Hx Sleep Apnea GI History: Reports: Hx Irritable Bowel, Other GI Disorders - Ulcerative colitis , hx of pancreatitis Denies: Hx Cirrhosis, Hx Crohn's Disease, Hx Diverticulosis, Hx Gall Bladder Disease, Hx Gastroesophageal Reflux Disease, Hx Gastrointestinal Bleed, Hx Hiatal Hernia, Hx Jaundice, Hx Obstructive Bowel, Hx Ileostomy, Hx Pyloric Stenosis, Hx Ulcer Sensory History: Reports: Hx Contacts or Glasses Denies: Hx Cataracts, Hx Eye Injury, Hx Eye Prosthesis, Hx Glaucoma, Hx Legally Blind, Hx Macular Degeneration, Hx Vision Problem, Hx Deafness, Hx Hearing Aid, Hx Hearing Problem, Other Sensory Impairments Opthamlomology History: Reports: Hx Contacts or Glasses Denies: Hx Cataracts, Hx Eye Injury, Hx Eye Prosthesis, Hx Glaucoma, Hx Legally Blind, Hx Macular Degeneration, Hx Vision Problem, Other Sensory Impairments Neurological History: Reports: Hx Headaches - after remicade infusions, Hx Migraine Denies: Hx Dementia, Hx Developmental Delay, Hx Nerve Disease, Hx Seizures, Hx Spinal Cord Injury, Hx Transient Ischemic Attacks (TIA) Psychiatric History: Denies: Hx Panic Disorder - Surgical History Surgery Procedure, Year, and Place: Hammer toe corrections, tear duct, cyst removed from left wrist, tonsillectomy Hx Anesthesia Reactions: No - Immunization History Date of Tetanus Vaccine: within 10 years Date of Influenza Vaccine: none Immunizations Up to Date: Yes Infectious Disease History: No Infectious Disease History: Denies: Hx Clostridium Difficile, Hx Hepatitis, Hx Human Immunodeficiency Virus (HIV), Hx of Known/Suspected MRSA, Hx Shingles, Hx Tuberculosis, Hx Known/ Suspected VRE, Traveled Outside the [place] in Last 30 Days - Family History Known Family History: Positive: Diabetes - Social History Alcohol Use: Occasionally Alcohol Amount: last night Hx Substance Use: No Substance Use Type: Reports: None Hx Tobacco Use: No Smoking Status (MU): Never Smoked Tobacco Review of Systems Positive: Chills Cardiovascular: Negative Respiratory: Negative Positive: Abdominal Pain, Vomiting, Diarrhea, Nausea Genitourinary: Negative Musculoskeletal: Negative Neurological: Negative All Other Systems Reviewed And Are Negative: Yes Physical Exam Triage Information Reviewed: Yes Vital Signs On Initial Exam: Initial Vitals Temp Pulse Resp BP Pulse Ox 98.1 F 107 20 128/77 100 12/27/16 08:50 12/27/16 08:50 12/27/16 08:50 12/27/16 08:50 12/27/16 08:50 Vital Signs Reviewed: Yes Appearance: Positive: Well-Appearing, No Pain Distress, Well-Nourished Skin: Positive: Warm, Skin Color Reflects Adequate Perfusion, Dry. Negative: Cold, Numb Head/Face: Positive: Normal Head/Face Inspection Eyes: Positive: Normal, Conjunctiva Clear ENT: Positive: Hearing grossly normal, Pharynx normal. Negative: Pharyngeal erythema, Trismus, Muffled/hoarse voice Dental: Negative: Cervical Lymphadenopathy Neck: Positive: Supple, Nontender, No Lymphadenopathy Respiratory/Lung Sounds: Positive: Clear to Auscultation, Breath Sounds Present. Negative: Rales, Rhonchi, Wheezes Cardiovascular: Positive: Normal, RRR, Pulses are Symmetrical in both Upper and Lower Extremities. Negative: Murmur, Rub Abdomen Description: Positive: Nontender, No Organomegaly, Soft, Other: - negative camacho's, rovsings, psoas and rebound. Negative: Bruit, CVA Tenderness (R), CVA Tenderness (L), Distended, Guarding, McBurney's Point Tenderness, Peritoneal Signs, Pulsatile Mass Bowel Sounds: Positive: Present Musculoskeletal: Positive: Strength/ROM Intact Neurological: Positive: Normal, Sensory/Motor Intact, Alert, Oriented to Person Place, Time Psychiatric: Positive: Affect/Mood Appropriate AVPU Assessment: Alert Diagnostics - Vital Signs Vital Signs Temp Pulse Resp BP Pulse Ox 12/27/16 08:52 98.3 F 115 20 128/77 97 12/27/16 08:50 98.1 F 107 20 128/77 100 - Laboratory Lab Results: Lab Results 12/27/16 Range/Units 09:38 WBC 9.1 (3.5-10.8) 10^3/ul RBC 3.95 L (4.0-5.4) 10^6/ul Hgb 13.0 (12.0-16.0) g/dl Hct 38 (35-47) % MCV 97 (80-97) fL MCH 33 H (27-31) pg MCHC 34 (31-36) g/dl RDW 13 (10.5-15) % Plt Count 312 (150-450) 10^3/ul MPV 8 (7.4-10.4) um3 Neut % (Auto) 58.9 (38-83) % Lymph % (Auto) 34.4 (25-47) % [place] % (Auto) 6.1 (1-9) % Eos % (Auto) 0.2 (0-6) % Baso % (Auto) 0.4 (0-2) % Absolute Neuts (auto) 5.4 (1.5-7.7) 10^3/ul Absolute Lymphs (auto) 3.1 (1.0-4.8) 10^3/ul Absolute Monos (auto) 0.6 (0-0.8) 10^3/ul Absolute Eos (auto) 0 (0-0.6) 10^3/ul Absolute Basos (auto) 0 (0-0.2) 10^3/ul Absolute Nucleated RBC 0.01 10^3/ul Nucleated RBC % 0.1 Result Diagrams: 12/27/16 09:38 12/27/16 09:38 Lab Statement: Any lab studies that have been ordered have been reviewed, and results considered in the medical decision making process. Re-Evaluation - Re-Evaluation First Eval Re-Evaluation Time: 10:45 Change: Improved - patient was feeling much better, without headache, nausea or vomiting after medication administration Abdominal Pain Fem Course/Dx - Course Course Of Treatment: Labs obtained. Given fluids and zofran/toradol for pain and nausea. Stool and urinalysis obtained. Labs unremarkable, lipase normal. Due to history, normal vitals and PE findings/HPI patient will be treated symptomatically at this time. No concern for emergent etiology or concern for infection/ UC flare up. Had significant relief after zofran, toradol and fluids. No vomiting while in ED. Due to unremarkable findings and improving symptoms will be discharged home. Aware of worsening signs and symptoms. Has follow up appointment and colonscopy schedule for January 01. Follow up PCP. Fluids, rest. Sent home with zofran and ibuprofen. - Diagnoses Differential Diagnosis: Positive: Diverticulitis, Irritable Bowel Syndrome - UC , Pancreatitis, Peptic Ulcer Disease, Urinary Tract Infection, Other - gastroenteritis Provider Diagnoses: Nausea vomiting and diarrhea, History of ulcerative colitis Discharge - Discharge Plan Condition: Stable Disposition: HOME Prescriptions: Ibuprofen TAB* [Motrin TAB* 600 MG] 600 mg PO Q6H PRN #15 tab PRN Reason: Pain Ondansetron ODT TAB* [Zofran 4 MG Odt TAB*] 4 mg PO Q6H PRN #20 tab.odt PRN Reason: Nausea Patient Education Materials: Acute Nausea and Vomiting (ED) Forms: *Work Release Referrals: Christine Moon MD [Primary Care Provider] - Ravindra Thayer MD [Medical Doctor] - Additional Instructions: Take zofran as needed for nausea and vomiting. you may take two pill (8mg) as needed every 8 hours, if 4mg is not significant enough. Take ibuprofen only as needed for pain and headache, take with food. Drink plenty of fluids and get plenty of rest. Follow up with GI doctor. Return if you develop worsening symptoms or new symptoms as we discussed. Avoid triggers such as alcohol.
[2016-12-27 10:07] LABS: ALT 11 U/L (7-52); AST 18 U/L (13-39); Albumin 4.4 g/dL (3.2-5.2); Alkaline Phosphatase 44 U/L (34-104); Anion Gap 8 mmol/L (2-11); BUN/Creatinine Ratio 10.8 (8-20); Blood Urea Nitrogen 9 mg/dL (6-24); C Reactive Protein 2.54 mg/L (< 5.00); CO2 Carbon Dioxide 24 mmol/L (22-32); Calcium 9.4 mg/dL (8.6-10.3); Chloride 105 mmol/L (101-111); EGFR African American 105.3 (>60); EGFR Non-African American 81.9 (>60); Globulin 3.5 g/dL (2-4); Glucose 97 mg/dL (70-100); Lipase < 10 U/L (11.0-82.0); Sodium 137 mmol/L (133-145); Total Protein 7.9 g/dL (6.4-8.9)
[2016-12-27 12:08] VITALS: BP 104/64
== END 2016-12-27 12:08 | disposition home or self-care (01) ==
LOC: ED 08:48
DX: R11.2 Nausea with vomiting, unspecified (principal); R19.7 Diarrhea, unspecified
CPT/HCPCS: 36415; 80053; 83605; 83690; 84702; 85025; 86140; 96374; 96375; 99283; J1885; J2405

== ENCOUNTER 2016-12-30 17:03 | Emergency (ER) | payer BC ==
[2016-12-30] MEDS ORDERED: Ondansetron INJ* 2 MG/ML VIAL IV ONE (18:11)
[2016-12-30] MEDS ORDERED: Metoclopramide IV* 5 MG/ML 2 ML VIAL IV SLOW PU ONE (18:37)
[2016-12-30] MEDS: NS 0.9% 1000 ML* 2,000 ML IV ONE ×2 (19:00→20:15)
[2016-12-30 19:07] LABS: Urine Bilirubin Negative (Negative); Urine Glucose Negative (Negative); Urine Nitrite Negative (Negative)
[2016-12-30 19:18] LABS: Urine Bacteria 3+ (Absent)
[2016-12-30 19:19] LABS: Hematocrit 39 % (35-47); Hemoglobin 13.6 g/dl (12.0-16.0); Mean Corpuscular HGB Conc 35 g/dl (31-36); Mean Corpuscular Hemoglobin 33 pg (27-31); Mean Corpuscular Volume 96 fL (80-97); Mean Platelet Volume 8 um3 (7.4-10.4); Red Blood Count 4.08 10^6/ul (4.0-5.4); Red Cell Distribution Width 12 % (10.5-15); White Blood Count 9.8 10^3/ul (3.5-10.8)
[2016-12-30 19:35] LABS: Albumin 4.9 g/dL (3.2-5.2); BUN/Creatinine Ratio 17.6 (8-20); C Reactive Protein 2.68 mg/L (< 5.00); Calcium 9.9 mg/dL (8.6-10.3); EGFR African American 102.4 (>60); EGFR Non-African American 79.6 (>60); Globulin 3.5 g/dL (2-4); Potassium 3.6 mmol/L (3.5-5.0); Total Bilirubin 0.4 mg/dL (0.2-1.0); Total Protein 8.4 g/dL (6.4-8.9)
[2016-12-30] MEDS ORDERED: Acetaminophen TAB* 325 MG PO ONE (21:06)
--- NOTE | 2016-12-30 21:19 | RAD ---
INDICATION: Pelvic pain with vomiting COMPARISON: Most recent pelvic ultrasound is dated November 04, 2016 TECHNIQUE: Real-time transabdominal and transvaginal ultrasound examination of the female pelvis including grayscale and Doppler color flow imaging. FINDINGS: Uterus: The uterus is normal in size and echogenicity measuring 8.2 x 3.2 x 4.7 cm. The endometrial stripe is smooth and uniform measuring 2 mm in thickness. Ovaries: The right and left ovary measure 2.3 x 1.7 x 1.4 cm and 2.0 x 1.4 x 1.1 cm, respectively. Normal arterial and venous waveforms are identified. Appearance is within normal limits for the patient's age. There is no free fluid in the cul-de-sac. IMPRESSION: Normal and age-appropriate pelvic ultrasound.
[2016-12-30] MEDS ORDERED: Ondansetron ODT TAB* 4 MG PO ONE (21:26)
[2016-12-30] MEDS ORDERED: predniSONE TAB* 20 MG PO ONE (21:37)
[2016-12-30 22:01] VITALS: BP 114/65
--- NOTE | 2017-01-06 11:21 | ED ---
IIsaias,Mila, scribed for Lucho Reich MD on 12/30/16 at 1832 . Abdominal Pain/Female - HPI Summary HPI Summary: This 26 y/o female presents to ED for persistent n/v/d since a week ago. Positive diffuse abd, notable at periumbilical region. PO intake makes symptoms worse. Positive night sweats, chills, and increased fatigue. Negative joint pain , fever, chills. Pt is on Nuvaring. Pending colonoscopy upcoming. Pt does not have LMNP due to being on Nuvaring. PMHx includes colitis and IBS with bouts of bloody diarrhea. Pt previously visited ED for similar complaints about 2 weeks ago. Primary care involves Dr. Thayer. Pt does not have any sexual partner at this time, and was recently evaluated at [facility]. Pt used to be on Humira to control her colitis/IBS but recently discontinued due to adverse reaction involving n/v. Plan of care involving US imaging studies is discussed with pt. R/b/a of repeat CT Ab/P after her previous CT is discussed with pt, and she is agreeable with US - History of Current Complaint Chief Complaint: EDNauseaVomitDiarrh Stated Complaint: DIZZINESS,VOMITING,DIARRHEA Time Seen by Provider: 12/30/16 18:10 Hx Obtained From: Patient, Medical Records Hx Last Menstrual Period: 06/29/14, NUVA RING ?: No Timing: Constant Pain Intensity: 7 Pain Scale Used: 0-10 Numeric Location: Diffuse Character: Dull Aggravating Factor(s): Food Alleviating Factor(s): Spontaneous Resolution Associated Signs and Symptoms: Positive: Nausea, Vomiting, Diarrhea Allergies/Adverse Reactions: Allergies Allergy/AdvReac Type Severity Reaction Status Date / Time Latex Allergy Mild Rash Verified 11/17/16 14:19 PMH/Surg Hx/FS Hx/Imm Hx Endocrine/Hematology History: Reports: Hx Anemia Denies: Hx Anticoagulant Therapy, Hx Blood Disorders, Hx Blood Transfusions, Hx Bone Marrow Disease, Hx Diabetes, Hx Systemic Lupus Erythematosus, Hx Sickle Cell Disease, Hx Thyroid Disease, Hx Unexplained Bleeding Cardiovascular History: Reports: Other Cardiovascular Problems/Disorders - Tachy -admitted to tele on 08/30/13 Denies: Hx Aneurysm, Hx Angina, Hx Angioplasty, Hx Auto Implanted Cardiovert Defib, Hx Cardiac Arrest, Hx Cardiomegaly, Hx Congenital Heart Disease, Hx Congestive Heart Failure, Hx Coronary Artery Disease, Hx Deep Vein Thrombosis, Hx Embolism, Hx Hypercholesterolemia, Hx Hypotension, Hx Hypertension, Hx Pacemaker/ICD, Hx Peripheral Vascular Disease, Hx Rheumatic Fever, Hx Syncope, Hx Valvular Heart Disease Respiratory History: Reports: Hx Seasonal Allergies Denies: Hx Asthma, Hx Chronic Bronchitis, Hx Chronic Obstructive Pulmonary Disease (COPD), Hx Cystic Fibrosis, Hx Lung Cancer, Hx Pleural Effusion, Hx Pneumonia, Hx Pulmonary Edema, Hx Pulmonary Embolism, Hx Sleep Apnea GI History: Reports: Hx Irritable Bowel, Other GI Disorders - Ulcerative colitis , hx of pancreatitis Denies: Hx Cirrhosis, Hx Crohn's Disease, Hx Diverticulosis, Hx Gall Bladder Disease, Hx Gastroesophageal Reflux Disease, Hx Gastrointestinal Bleed, Hx Hiatal Hernia, Hx Jaundice, Hx Obstructive Bowel, Hx Ileostomy, Hx Pyloric Stenosis, Hx Ulcer Sensory History: Reports: Hx Contacts or Glasses Denies: Hx Cataracts, Hx Eye Injury, Hx Eye Prosthesis, Hx Glaucoma, Hx Legally Blind, Hx Macular Degeneration, Hx Vision Problem, Hx Deafness, Hx Hearing Aid, Hx Hearing Problem, Other Sensory Impairments Opthamlomology History: Reports: Hx Contacts or Glasses Denies: Hx Cataracts, Hx Eye Injury, Hx Eye Prosthesis, Hx Glaucoma, Hx Legally Blind, Hx Macular Degeneration, Hx Vision Problem, Other Sensory Impairments Neurological History: Reports: Hx Headaches - after remicade infusions, Hx Migraine Denies: Hx Dementia, Hx Developmental Delay, Hx Nerve Disease, Hx Seizures, Hx Spinal Cord Injury, Hx Transient Ischemic Attacks (TIA) Psychiatric History: Denies: Hx Panic Disorder - Surgical History Surgery Procedure, Year, and Place: Hammer toe corrections, tear duct, cyst removed from left wrist, tonsillectomy Hx Anesthesia Reactions: No - Immunization History Date of Tetanus Vaccine: within 10 years Date of Influenza Vaccine: none Infectious Disease History: Denies: Hx Clostridium Difficile, Hx Hepatitis, Hx Human Immunodeficiency Virus (HIV), Hx of Known/Suspected MRSA, Hx Shingles, Hx Tuberculosis, Hx Known/ Suspected VRE, Traveled Outside the [place] in Last 30 Days - Family History Known Family History: Positive: Diabetes - Social History Alcohol Use: Occasionally Alcohol Amount: last night Hx Substance Use: No Substance Use Type: Reports: None Hx Tobacco Use: No Smoking Status (MU): Never Smoked Tobacco Review of Systems Negative: Fever, Chills Negative: Erythema Negative: Sore Throat Negative: Chest Pain Negative: Shortness Of Breath, Cough Positive: Abdominal Pain, Vomiting, Diarrhea, Nausea Negative: dysuria, discharge, hematuria Positive: Other - chronic back pain. Negative: Myalgia, Edema Negative: Rash Neurological: Other - Negative dizziness Positive: Headache All Other Systems Reviewed And Are Negative: Yes Physical Exam - Summary Physical Exam Summary: Constitutional: Well-developed, Well-nourished, Alert. (-) Distressed Skin: Warm, Dry HENT: Normocephalic; Atraumatic Eyes: Conjunctiva normal Neck: Musculoskeletal ROM normal neck. (-) JVD, (-) Stridor, (-) Tracheal deviation Cardio: Rhythm regular, rate normal, Heart sounds normal; Intact distal pulses; The pedal pulses are 2+ and symmetric. Radial pulses are 2+ and symmetric. (-) Murmur Pulmonary/Chest wall: Effort normal. (-) Respiratory distress, (-) Wheezes, (-) Rales Abd: Soft, (+) Mild LLQ Tenderness, (-) Distension, (-) Guarding, (-) Rebound Musculoskeletal: (-) Edema Lymph: (-) Cervical adenopathy Neuro: Alert, Oriented x3 Psych: Mood and affect Normal Triage Information Reviewed: Yes Vital Signs On Initial Exam: Initial Vitals Temp Pulse Resp BP Pulse Ox 98.3 F 72 18 112/79 100 12/30/16 17:23 12/30/16 17:23 12/30/16 17:23 12/30/16 17:23 12/30/16 17:23 Vital Signs Reviewed: Yes Diagnostics - Vital Signs Vital Signs Temp Pulse Resp BP Pulse Ox 12/30/16 17:23 98.3 F 72 18 112/79 100 - Laboratory Result Diagrams: 12/30/16 19:00 12/30/16 19:00 Lab Statement: Any lab studies that have been ordered have been reviewed, and results considered in the medical decision making process. - Additional Comments Diagnostic Additional Comments: US -- nml and age-appropriate pelvic US. Abdominal Pain Fem Course/Dx - Course Course Of Treatment: THis 26 y/o female presents to ED for acute on chronic n/v/ d secondary to known IBS and colitis. Pt is noted with very similar clinical presentations from previous visits. Multiple CT ab/P in the past. We choose not to irradate her and incresaed irradiation risk. Blood work is noted wnl except for low lipase of 10. UA is noted with contamination. US indicates normal, age- appropriate pelvic US. Dr. Stewart is consulted on whether or not to order prednisone before scheduled colonoscope [address] Stewart recommends proceeding with prednisone, and pt is discharged with prednisone and instruction to follow up for colonoscopy as scheduled. - Diagnoses Provider Diagnoses: ulcerative colitis flare - Provider Notifications Discussed Care Of Patient With: Quique Stewart - proceeds with prednisone Time Discussed With Above Provider: 21:34 Discharge - Discharge Plan Condition: Stable Disposition: HOME Prescriptions: predniSONE TAB* [Deltasone TAB*] 40 mg PO DAILY #10 tab Patient Education Materials: Ulcerative Colitis (ED), Prednisone (By mouth) Forms: *Work Release Referrals: Christine Moon MD [Primary Care Provider] - 2 Days Ravindra Thayer MD [Medical Doctor] - (Please be sure to follow up for colonoscopy as scheduled ) The documentation as recorded by the Isaias walters Soohyun accurately reflects the service I personally performed and the decisions made by me, Lucho Reich MD.
== END 2016-12-30 21:55 | disposition home or self-care (01) ==
LOC: ED 17:03
DX: K51.90 Ulcerative colitis, unspecified, without complications (principal); R11.2 Nausea with vomiting, unspecified; R19.7 Diarrhea, unspecified; R10.33 Periumbilical pain; Z91.040 Latex allergy status
CPT/HCPCS: 36415; 76830; 80053; 81003; 81015; 83605; 83690; 85025; 86140; 87086; 96361; 96374; 96375; 99283; A9270-GY; J2405; J7512

== ENCOUNTER 2017-04-19 09:11 | Emergency (ER) | payer SELFPAY ==
[2017-04-19] MEDS ORDERED: Ketorolac INJ* 30 MG/ML 1 ML VIAL IV ONE (09:59)
[2017-04-19] MEDS ORDERED: NS 0.9% 1000 ML* 1,000 ML IV ONE ×2 (09:59→11:32)
[2017-04-19] MEDS ORDERED: PROCHLORPERAZINE INJ 5 MG/ML 2 ML VIAL IV ONE (09:59)
[2017-04-19] MEDS ORDERED: diPHENhydraMINE IV* 50 MG/ML 1 ml VIAL (BENADRYL) IV ONE (10:00)
--- NOTE | 2017-04-19 10:08 | ED ---
Headache - HPI Summary HPI Summary: Patient presents to the ED with neck pain x 2 week which is at the base of the skull described as sharp and throbbing and intermittent. 3 days ago began to experience left sided throbbing and sharp SHEEHAN. Hx of migraines and this feels similar. She notes usually her migraines are typically resolved with excedrin migraine. She has been taking this medication with relief x 3 hours, with a return of the migraine to its baseline, 01/30. SHEEHAN is not worst of life. Denies neck stiffness, just states the base of the posterior neck is "sore." Denies ROM limitations of flexion, extension or rotation at the neck. Notes to recent N/V and photophobia since the onset of the SHEEHAN. Denies other symptoms including back pain, weakness, urinary symptoms, blurry vision, double vision, difficultly swallowing, chest pain and SOB. She does note to some diarrhea, but has colitis at baseline, and this is normal for her. - History Of Current Complaint Chief Complaint: EDHeadache Stated Complaint: NECK PAIN, 3 DAY MIGRINE Time Seen by Provider: 04/19/17 09:28 Hx Obtained From: Patient Hx Last Menstrual Period: 06/29/14, NUVA RING Onset/Duration: Sudden Onset Initially Headache Was: Initial Pain Scale(0-10)= - 8 Currently Pain Is: Current Pain Scale(0-10)= - 8 Timing: Intermittent, Lasting:, Hours Character: Sharp, Migraine Location of Headache: Parietal - left Aggravating Factor: Bright Lights Allevating Factors: Rest Associated Signs And Symptoms: Nausea, Vomiting, Neck Stiffness - notes to pain , not stiffness - Risk Factors SAH Risk Factors: Negative Meningitis Risk Factors: Negative SDH Risk Factors: Negative Temporal Arteritis Risk Factors: Female, - Allergies/Home Medications Allergies/Adverse Reactions: Allergies Allergy/AdvReac Type Severity Reaction Status Date / Time Latex Allergy Mild Rash Verified 11/17/16 14:19 PMH/Surg Hx/FS Hx/Imm Hx Previously Healthy: Yes Endocrine/Hematology History: Reports: Hx Anemia Denies: Hx Anticoagulant Therapy, Hx Blood Disorders, Hx Blood Transfusions, Hx Bone Marrow Disease, Hx Diabetes, Hx Systemic Lupus Erythematosus, Hx Sickle Cell Disease, Hx Thyroid Disease, Hx Unexplained Bleeding Cardiovascular History: Reports: Other Cardiovascular Problems/Disorders - Tachy -admitted to [facility] on 08/30/13 Denies: Hx Aneurysm, Hx Angina, Hx Angioplasty, Hx Auto Implanted Cardiovert Defib, Hx Cardiac Arrest, Hx Cardiomegaly, Hx Congenital Heart Disease, Hx Congestive Heart Failure, Hx Coronary Artery Disease, Hx Deep Vein Thrombosis, Hx Embolism, Hx Hypercholesterolemia, Hx Hypotension, Hx Hypertension, Hx Pacemaker/ICD, Hx Peripheral Vascular Disease, Hx Rheumatic Fever, Hx Syncope, Hx Valvular Heart Disease Respiratory History: Reports: Hx Seasonal Allergies Denies: Hx Asthma, Hx Chronic Bronchitis, Hx Chronic Obstructive Pulmonary Disease (COPD), Hx Cystic Fibrosis, Hx Lung Cancer, Hx Pleural Effusion, Hx Pneumonia, Hx Pulmonary Edema, Hx Pulmonary Embolism, Hx Sleep Apnea GI History: Reports: Hx Irritable Bowel, Other GI Disorders - Ulcerative colitis , hx of pancreatitis Denies: Hx Cirrhosis, Hx Crohn's Disease, Hx Diverticulosis, Hx Gall Bladder Disease, Hx Gastroesophageal Reflux Disease, Hx Gastrointestinal Bleed, Hx Hiatal Hernia, Hx Jaundice, Hx Obstructive Bowel, Hx Ileostomy, Hx Pyloric Stenosis, Hx Ulcer Sensory History: Reports: Hx Contacts or Glasses Denies: Hx Cataracts, Hx Eye Injury, Hx Eye Prosthesis, Hx Glaucoma, Hx Legally Blind, Hx Macular Degeneration, Hx Vision Problem, Hx Deafness, Hx Hearing Aid, Hx Hearing Problem, Other Sensory Impairments Opthamlomology History: Reports: Hx Contacts or Glasses Denies: Hx Cataracts, Hx Eye Injury, Hx Eye Prosthesis, Hx Glaucoma, Hx Legally Blind, Hx Macular Degeneration, Hx Vision Problem, Other Sensory Impairments Neurological History: Reports: Hx Headaches - after remicade infusions, Hx Migraine Denies: Hx Dementia, Hx Developmental Delay, Hx Nerve Disease, Hx Seizures, Hx Spinal Cord Injury, Hx Transient Ischemic Attacks (TIA) Psychiatric History: Denies: Hx Panic Disorder - Surgical History Surgery Procedure, Year, and Place: Hammer toe corrections, tear duct, cyst removed from left wrist, tonsillectomy Hx Anesthesia Reactions: No - Immunization History Date of Tetanus Vaccine: within 10 years Date of Influenza Vaccine: none Hx Pertussis Vaccination: No Immunizations Up to Date: Unable to Obtain/Confirm Infectious Disease History: No Infectious Disease History: Denies: Hx Clostridium Difficile, Hx Hepatitis, Hx Human Immunodeficiency Virus (HIV), Hx of Known/Suspected MRSA, Hx Shingles, Hx Tuberculosis, Hx Known/ Suspected VRE, Traveled Outside the [place] in Last 30 Days - Family History Known Family History: Positive: Diabetes - Social History Occupation: Employed Full-time Lives: With Family Alcohol Use: Rare Alcohol Amount: last Hx Substance Use: No Substance Use Type: Reports: None Hx Tobacco Use: No Smoking Status (MU): Never Smoked Tobacco Review of Systems Constitutional: Negative Negative: Fever, Chills, Fatigue, Skin Diaphoresis Positive: Photophobia. Negative: Blurred Vision, Diplopia, Drainage, Erythema ENT: Negative Cardiovascular: Negative Respiratory: Negative Positive: no symptoms reported, see HPI Positive: Myalgia - neck pain Skin: Negative Positive: Headache Psychological: Normal All Other Systems Reviewed And Are Negative: Yes Physical Exam Triage Information Reviewed: Yes Vital Signs On Initial Exam: Initial Vitals Temp Pulse Resp BP Pulse Ox 99.9 F 76 20 130/77 100 04/19/17 09:24 04/19/17 09:24 04/19/17 09:24 04/19/17 09:24 04/19/17 09:24 Vital Signs Reviewed: Yes Appearance: Positive: Well-Appearing, Well-Nourished - wearing sunglasses, but seems to be in NAD Skin: Positive: Warm, Skin Color Reflects Adequate Perfusion Head/Face: Positive: Normal Head/Face Inspection Eyes: Positive: EOMI, [place], Conjunctiva Clear Neck: Positive: Other: - tenderness at the base of the skull, without pain across the posterior cervical spine, spine without tenderness Respiratory/Lung Sounds: Positive: Clear to Auscultation, Breath Sounds Present Cardiovascular: Positive: Normal, RRR, Pulses are Symmetrical in both Upper and Lower Extremities Musculoskeletal: Positive: Normal, Strength/ROM Intact Neurological: Positive: Speech Normal Psychiatric: Positive: Normal AVPU Assessment: Alert - [place] Coma Scale Best Eye Response: 3 - To Speech Best Motor Response: 6 - Obeys Commands Best Verbal Response: 5 - Oriented Coma Scale Total: 15 Diagnostics - Vital Signs Vital Signs Temp Pulse Resp BP Pulse Ox 04/19/17 09:24 99.9 F 76 20 130/77 100 - Laboratory Result Diagrams: 04/19/17 10:12 04/19/17 10:12 Lab Statement: Any lab studies that have been ordered have been reviewed, and results considered in the medical decision making process. Headache Course/Dx - Course Course Of Treatment: Ada presents with neck pain, denies stiffness for 2 weeks intermittently. 3 days ago began with a SHEEHAN on the left parietal with sharp pains and improved with excedrin migraine. She also took sumitriptan with improvement. Tenderness at the base of the skull, without pain across the posterior cervical spine, spine without tenderness. Other PE without findings. Meningeal symptoms including photophobia, however, neck stiffness and fever is not present. Likely typical migraine for patient. During the course of treatment, she is given fluids, compazine, benadryl and toradol. On re- examination, she remains at a 6/10 from a 9/10. She is given 1L fluid and fiorecet. On re-examination, SHEEHAN has resolved. Discussed medications risks and benefits and she is OK for discharge with a prescription. She will follow up with her PCP soon for further workup if indicated. She understands to return if any symptoms become worse. VS stable on discharge. - Diagnoses Differential Diagnosis/HQI/PQRI: Meningitis, Migraine, Tension Headache, Viral Syndrome Provider Diagnoses: Migraine Discharge - Discharge Plan Condition: Stable Disposition: HOME Prescriptions: Butalb/Acetamin/Caff TAB* [Fioricet TAB*] 1 tab PO Q6H PRN #20 tab MDD 4 PRN Reason: Pain Patient Education Materials: Butalbital/Acetaminophen/Caffeine (By mouth), Migraine Headache (ED) Referrals: Christine Moon MD [Primary Care Provider] - Additional Instructions: Please take 1 tab up to every 6 hours as needed for migraine SHEEHAN Do not take immediately before bed You may try benadryl at bedtime for migraine Drink plenty of fluids If any pain becomes worse, return to the ED immediately
[2017-04-19 10:29] LABS: Hematocrit 35 % (35-47); Hemoglobin 12.2 g/dl (12.0-16.0); Mean Corpuscular HGB Conc 34 g/dl (31-36); Mean Corpuscular Hemoglobin 32 pg (27-31); Mean Corpuscular Volume 94 fL (80-97); Mean Platelet Volume 8 um3 (7.4-10.4); Red Blood Count 3.76 10^6/ul (4.0-5.4); Red Cell Distribution Width 13 % (10.5-15); White Blood Count 7.5 10^3/ul (3.5-10.8)
[2017-04-19 10:40] LABS: BUN/Creatinine Ratio 17.3 (8-20); C Reactive Protein 4.2 mg/L (< 5.00); Calcium 9.2 mg/dL (8.6-10.3); EGFR African American 118.3 (>60); Globulin 3.1 g/dL (2-4); Potassium 3.6 mmol/L (3.5-5.0); Total Bilirubin 0.3 mg/dL (0.2-1.0); Total Protein 7.1 g/dL (6.4-8.9)
[2017-04-19 10:42] LABS: Urine Bilirubin Negative (Negative); Urine Glucose Negative (Negative); Urine Nitrite Negative (Negative)
[2017-04-19 11:16] LABS: Erythrocyte Sed Rate 26 mm/Hr (0-14)
[2017-04-19] MEDS ORDERED: Butalb/Acetamin/Caff TAB* 1 TAB PO ONE (11:32)
[2017-04-19 13:08] VITALS: BP 103/60
== END 2017-04-19 13:07 | disposition home or self-care (01) ==
LOC: ED 09:11
DX: G43.909 Migraine, unspecified, not intractable, without status migrainosus (principal); R11.2 Nausea with vomiting, unspecified; M54.2 Cervicalgia; H53.149 Visual discomfort, unspecified
CPT/HCPCS: 36415; 80053; 81003; 83605; 85025; 85652; 86140; 96374; 96375; 99282; J0780; J1200; J1885

== ENCOUNTER 2017-05-13 14:12 | Emergency (ER) | payer OTHER ==
[2017-05-13 14:20] VITALS: BP 124/75
[2017-05-13] MEDS ORDERED: NS 0.9% 1000 ML* 1,000 ML IV ONE (17:23)
[2017-05-13] MEDS ORDERED: PROCHLORPERAZINE INJ 5 MG/ML 2 ML VIAL IV ONE (17:24)
[2017-05-13] MEDS ORDERED: diPHENhydraMINE IV* 50 MG/ML 1 ml VIAL (BENADRYL) IV ONE (17:24)
--- NOTE | 2017-05-13 17:31 | ED ---
Neck Pain - HPI Summary HPI Summary: 26F presents with severe neck pain. She states has had neck pain for 2 months. She states pain has been getting worst. She states that she has been having nausea and vomiting. She has been following up with her primary. She admits to occasionally change blurry vision. She has been using excredin, muscle relaxer without relief. She has been using zofran for the nausea. She denies any fever or neck stiffness. She has been vomiting today. She denies double vision. She denies any chest pain or SOB. She states neck pain started days after going on roller [employer]. She denies any syncope. She states she has history of migraines and the neck pain is causing her to have such. She has been taking sumatriptan and fiorcet without relief. She states this is not the worst headache of her life. - History of Current Complaint Chief Complaint: EDHeadache Stated Complaint: NECK PAIN/HEADACHES Time Seen by Provider: 05/13/17 17:10 Hx Last Menstrual Period: 06/29/14, NUVA RING Pain Intensity: 8 - Allergies/Home Medications Allergies/Adverse Reactions: Allergies Allergy/AdvReac Type Severity Reaction Status Date / Time Latex Allergy Mild Rash Verified 11/17/16 14:19 PMH/Surg Hx/FS Hx/Imm Hx Endocrine/Hematology History: Reports: Hx Anemia Denies: Hx Anticoagulant Therapy, Hx Blood Disorders, Hx Blood Transfusions, Hx Bone Marrow Disease, Hx Diabetes, Hx Systemic Lupus Erythematosus, Hx Sickle Cell Disease, Hx Thyroid Disease, Hx Unexplained Bleeding Cardiovascular History: Reports: Other Cardiovascular Problems/Disorders - Tachy -admitted to tele on 08/30/13 Denies: Hx Aneurysm, Hx Angina, Hx Angioplasty, Hx Auto Implanted Cardiovert Defib, Hx Cardiac Arrest, Hx Cardiomegaly, Hx Congenital Heart Disease, Hx Congestive Heart Failure, Hx Coronary Artery Disease, Hx Deep Vein Thrombosis, Hx Embolism, Hx Hypercholesterolemia, Hx Hypotension, Hx Hypertension, Hx Pacemaker/ICD, Hx Peripheral Vascular Disease, Hx Rheumatic Fever, Hx Syncope, Hx Valvular Heart Disease Respiratory History: Reports: Hx Seasonal Allergies Denies: Hx Asthma, Hx Chronic Bronchitis, Hx Chronic Obstructive Pulmonary Disease (COPD), Hx Cystic Fibrosis, Hx Lung Cancer, Hx Pleural Effusion, Hx Pneumonia, Hx Pulmonary Edema, Hx Pulmonary Embolism, Hx Sleep Apnea GI History: Reports: Hx Irritable Bowel, Other GI Disorders - Ulcerative colitis , hx of pancreatitis Denies: Hx Cirrhosis, Hx Crohn's Disease, Hx Diverticulosis, Hx Gall Bladder Disease, Hx Gastroesophageal Reflux Disease, Hx Gastrointestinal Bleed, Hx Hiatal Hernia, Hx Jaundice, Hx Obstructive Bowel, Hx Ileostomy, Hx Pyloric Stenosis, Hx Ulcer Sensory History: Reports: Hx Contacts or Glasses Denies: Hx Cataracts, Hx Eye Injury, Hx Eye Prosthesis, Hx Glaucoma, Hx Legally Blind, Hx Macular Degeneration, Hx Vision Problem, Hx Deafness, Hx Hearing Aid, Hx Hearing Problem, Other Sensory Impairments Opthamlomology History: Reports: Hx Contacts or Glasses Denies: Hx Cataracts, Hx Eye Injury, Hx Eye Prosthesis, Hx Glaucoma, Hx Legally Blind, Hx Macular Degeneration, Hx Vision Problem, Other Sensory Impairments Neurological History: Reports: Hx Headaches - after remicade infusions, Hx Migraine Denies: Hx Dementia, Hx Developmental Delay, Hx Nerve Disease, Hx Seizures, Hx Spinal Cord Injury, Hx Transient Ischemic Attacks (TIA) Psychiatric History: Denies: Hx Panic Disorder - Surgical History Surgery Procedure, Year, and Place: Hammer toe corrections, tear duct, cyst removed from left wrist, tonsillectomy Hx Anesthesia Reactions: No - Immunization History Date of Tetanus Vaccine: within 10 years Date of Influenza Vaccine: none Infectious Disease History: No Infectious Disease History: Denies: Hx Clostridium Difficile, Hx Hepatitis, Hx Human Immunodeficiency Virus (HIV), Hx of Known/Suspected MRSA, Hx Shingles, Hx Tuberculosis, Hx Known/ Suspected VRE, Traveled Outside the [place] in Last 30 Days - Family History Known Family History: Positive: Diabetes - Social History Alcohol Use: Rare Alcohol Amount: last Hx Substance Use: No Substance Use Type: Reports: None Hx Tobacco Use: No Smoking Status (MU): Never Smoked Tobacco Review of Systems Negative: Fever Negative: Chest Pain Negative: Shortness Of Breath Positive: Vomiting, Nausea Positive: Myalgia - neck pain Positive: Headache All Other Systems Reviewed And Are Negative: Yes Physical Exam Triage Information Reviewed: Yes Vital Signs On Initial Exam: Initial Vitals Temp Pulse Resp BP Pulse Ox 98.7 F 81 16 124/75 98 05/13/17 14:18 05/13/17 14:18 05/13/17 14:18 05/13/17 14:18 05/13/17 14:18 Vital Signs Reviewed: Yes Appearance: Positive: Well-Appearing Skin: Positive: Warm, Dry Head/Face: Positive: Normal Head/Face Inspection Eyes: Positive: Normal, EOMI, [place], Conjunctiva Clear, Other: - normal fundoscopic exam ENT: Positive: Normal ENT inspection, Pharynx normal, TMs normal Respiratory/Lung Sounds: Positive: Clear to Auscultation, Breath Sounds Present Cardiovascular: Positive: Normal, RRR Musculoskeletal: Positive: Strength/ROM Intact - neck, Other - tenderness posterior aspect of neck Neurological: Positive: Sensory/Motor Intact, Alert, Oriented to Person Place, Time, CN Intact II-III, Heel to Toe, Finger to Nose - [place] Coma Scale Best Eye Response: 4 - Spontaneous Best Motor Response: 6 - Obeys Commands Best Verbal Response: 5 - Oriented Diagnostics - Vital Signs Vital Signs Temp Pulse Resp BP Pulse Ox 05/13/17 14:18 98.7 F 81 16 124/75 98 - Laboratory Result Diagrams: 05/13/17 17:52 05/13/17 17:52 Lab Statement: Any lab studies that have been ordered have been reviewed, and results considered in the medical decision making process. Neck Course/Dx - Course Course Of Treatment: 26F presents with severe neck pain. She states has had neck pain for 2 months. She states pain has been getting worst. She states that she has been having nausea and vomiting. She has been following up with her primary. She admits to occasionally change blurry vision. She has been using excredin, muscle relaxer without relief. She has been using zofran for the nausea. She denies any fever or neck stiffness. She has been vomiting today. She denies double vision. She denies any chest pain or SOB. She states neck pain started days after going on roller coaster. She denies any syncope. She states she has history of migraines and the neck pain is causing her to have such. She has been taking sumatriptan and fiorcet without relief. She states this is not the worst headache of her life. on exam has nystagmus present. fundoscopic exam normal. normal neuro exam. will get CTA to r/o aneurysm do to severity of symptoms. gave bendaryl and compazine will waiting. patient eloped will in ED so never got CT. attempted to call patient and unable to get a hold of patient - Diagnoses Differential Dx/HQI/PQRI: Positive: Sprain, Strain, Vertebral Artery Aneurysm Provider Diagnoses: Neck pain, Headache Discharge - Discharge Plan Condition: Stable Disposition: OTHER Discharge Disposition Comment: eloped Referrals: Christine Moon MD [Primary Care Provider] -
[2017-05-13 18:03] LABS: Hematocrit 36 % (35-47); Hemoglobin 12.4 g/dl (12.0-16.0); Mean Corpuscular HGB Conc 34 g/dl (31-36); Mean Corpuscular Hemoglobin 32 pg (27-31); Mean Corpuscular Volume 94 fL (80-97); Mean Platelet Volume 8 um3 (7.4-10.4); Red Blood Count 3.83 10^6/ul (4.0-5.4); Red Cell Distribution Width 12 % (10.5-15); White Blood Count 8.2 10^3/ul (3.5-10.8)
[2017-05-13 18:18] LABS: ALT 11 U/L (7-52); Albumin 4.2 g/dL (3.2-5.2); Alkaline Phosphatase 46 U/L (34-104); BUN/Creatinine Ratio 16.3 (8-20); Blood Urea Nitrogen 13 mg/dL (6-24); CO2 Carbon Dioxide 25 mmol/L (22-32); Calcium 9.3 mg/dL (8.6-10.3); Chloride 105 mmol/L (101-111); EGFR African American 109.8 (>60); EGFR Non-African American 85.4 (>60); Globulin 3.1 g/dL (2-4); Glucose 92 mg/dL (70-100); Sodium 137 mmol/L (133-145); Total Protein 7.3 g/dL (6.4-8.9)
[2017-05-13 19:00] LABS: AST 15 U/L (13-39); Anion Gap 7 mmol/L (2-11); Potassium 4.3 mmol/L (3.5-5.0)
== END 2017-05-13 19:57 ==
LOC: ED 14:12
DX: M54.2 Cervicalgia (principal); R51 Headache; D64.9 Anemia, unspecified
CPT/HCPCS: 36415; 80053; 84702; 85025; 86141; 86618; 96360; 96374; 96375; 99281; J0780; J1200

== ENCOUNTER 2017-05-14 08:50 | Emergency (ER) | payer OTHER ==
[2017-05-14] MEDS ORDERED: Iohexol 350* (CONTRAST) 500 ML MDV IV ONE (09:20)
[2017-05-14] MEDS ORDERED: Acetaminophen TAB* 325 MG PO ONE (09:54)
--- NOTE | 2017-05-14 09:54 | ED ---
Headache - HPI Summary HPI Summary: 26 female presents to ED with headache and severe neck pain. Was seen in ED last night for the same symptoms, had tests ordered however eloped before they were completed. Returns today to have them completed. She states has had neck pain for 2 months and it has been getting worse, causing her to have a headache every day. Patient has chronic migraines where she used to get them 1-2 times a month however, she has been getting them daily. Admits to nausea and vomiting. She has been following up with her primary, who attempted muscle relaxers and gabapentin without relief. Also is in the midst of beginning physical therapy. She admits to occasionally experiencing blurry vision. Movement of neck increases pain. Has also taken zofran, sumatriptan, fiorcet and excedrin without much relief.. She denies any fever, recent illness and neck stiffness. She denies double vision, loss of vision, vomiting today, chest pain and SOB. She states neck pain started days after going on roller coaster. Denies any weakness, numbness/tingling, dizziness, syncope or mental status changes/ lethargy. She states she has history of migraines and the neck pain is causing her to have such. States the headaches begin in the base of her head and are mainly in the back of her head, and have been much worse than previous migraines. + photophobia. No known rash or tick bites. PMHx significant for migraines, ulcerative colitis/IBS. Immz are UTD. - History Of Current Complaint Chief Complaint: EDHeadache Stated Complaint: HEADACHE/NECK PAIN Time Seen by Provider: 05/14/17 09:15 Hx Obtained From: Patient Hx Last Menstrual Period: 06/29/14, NUVA RING Onset/Duration: Sudden Onset, Started weeks ago, Still Present, Worse Since Initially Headache Was: Initial Pain Scale(0-10)= - 5 Currently Pain Is: Current Pain Scale(0-10)= - 7 Timing: Constant Character: Throbbing Location of Headache: Occipital Aggravating Factor: Bright Lights Allevating Factors: Nothing Associated Signs And Symptoms: Nausea, Vomiting, Neck Pain, Visual Changes - Allergies/Home Medications Allergies/Adverse Reactions: Allergies Allergy/AdvReac Type Severity Reaction Status Date / Time Latex Allergy Mild Rash Verified 11/17/16 14:19 PMH/Surg Hx/FS Hx/Imm Hx Endocrine/Hematology History: Reports: Hx Anemia Denies: Hx Anticoagulant Therapy, Hx Blood Disorders, Hx Blood Transfusions, Hx Bone Marrow Disease, Hx Diabetes, Hx Systemic Lupus Erythematosus, Hx Sickle Cell Disease, Hx Thyroid Disease, Hx Unexplained Bleeding Cardiovascular History: Reports: Other Cardiovascular Problems/Disorders - Tachy -admitted to tele on 08/30/13 Denies: Hx Aneurysm, Hx Angina, Hx Angioplasty, Hx Auto Implanted Cardiovert Defib, Hx Cardiac Arrest, Hx Cardiomegaly, Hx Congenital Heart Disease, Hx Congestive Heart Failure, Hx Coronary Artery Disease, Hx Deep Vein Thrombosis, Hx Embolism, Hx Hypercholesterolemia, Hx Hypotension, Hx Hypertension, Hx Pacemaker/ICD, Hx Peripheral Vascular Disease, Hx Rheumatic Fever, Hx Syncope, Hx Valvular Heart Disease Respiratory History: Reports: Hx Seasonal Allergies Denies: Hx Asthma, Hx Chronic Bronchitis, Hx Chronic Obstructive Pulmonary Disease (COPD), Hx Cystic Fibrosis, Hx Lung Cancer, Hx Pleural Effusion, Hx Pneumonia, Hx Pulmonary Edema, Hx Pulmonary Embolism, Hx Sleep Apnea GI History: Reports: Hx Irritable Bowel, Other GI Disorders - Ulcerative colitis , hx of pancreatitis Denies: Hx Cirrhosis, Hx Crohn's Disease, Hx Diverticulosis, Hx Gall Bladder Disease, Hx Gastroesophageal Reflux Disease, Hx Gastrointestinal Bleed, Hx Hiatal Hernia, Hx Jaundice, Hx Obstructive Bowel, Hx Ileostomy, Hx Pyloric Stenosis, Hx Ulcer Sensory History: Reports: Hx Contacts or Glasses Denies: Hx Cataracts, Hx Eye Injury, Hx Eye Prosthesis, Hx Glaucoma, Hx Legally Blind, Hx Macular Degeneration, Hx Vision Problem, Hx Deafness, Hx Hearing Aid, Hx Hearing Problem, Other Sensory Impairments Opthamlomology History: Reports: Hx Contacts or Glasses Denies: Hx Cataracts, Hx Eye Injury, Hx Eye Prosthesis, Hx Glaucoma, Hx Legally Blind, Hx Macular Degeneration, Hx Vision Problem, Other Sensory Impairments Neurological History: Reports: Hx Headaches - after remicade infusions, Hx Migraine Denies: Hx Dementia, Hx Developmental Delay, Hx Nerve Disease, Hx Seizures, Hx Spinal Cord Injury, Hx Transient Ischemic Attacks (TIA) Psychiatric History: Denies: Hx Panic Disorder - Surgical History Surgery Procedure, Year, and Place: Hammer toe corrections, tear duct, cyst removed from left wrist, tonsillectomy Hx Anesthesia Reactions: No - Immunization History Date of Tetanus Vaccine: within 10 years Date of Influenza Vaccine: none Immunizations Up to Date: Yes Infectious Disease History: No Infectious Disease History: Denies: Hx Clostridium Difficile, Hx Hepatitis, Hx Human Immunodeficiency Virus (HIV), Hx of Known/Suspected MRSA, Hx Shingles, Hx Tuberculosis, Hx Known/ Suspected VRE, Traveled Outside the [place] in Last 30 Days - Family History Known Family History: Positive: Diabetes, Other - migraines - Social History Alcohol Use: None Alcohol Amount: last Hx Substance Use: No Substance Use Type: Reports: Marijuana Substance Use Comment - Amount & Last Used: rarely Hx Tobacco Use: No Smoking Status (MU): Never Smoked Tobacco Review of Systems Constitutional: Negative Positive: Photophobia, Blurred Vision Cardiovascular: Negative Respiratory: Negative Positive: Vomiting, Nausea Positive: Arthralgia, Myalgia - neck Skin: Negative Positive: Headache All Other Systems Reviewed And Are Negative: Yes Physical Exam Triage Information Reviewed: Yes Vital Signs On Initial Exam: Initial Vitals Temp Pulse Resp BP Pulse Ox 97.8 F 73 14 126/72 99 05/14/17 08:52 05/14/17 08:52 05/14/17 08:52 05/14/17 08:52 05/14/17 08:52 Vital Signs Reviewed: Yes Appearance: Positive: Well-Appearing, No Pain Distress, Well-Nourished Skin: Positive: Warm, Skin Color Reflects Adequate Perfusion, Dry. Negative: Cold, Numb, Cyanosis @, Diaphoretic, Mass @, Erythema @ Head/Face: Positive: Normal Head/Face Inspection. Negative: Scalp Eyes: Positive: EOMI, [place], Conjunctiva Clear, Other: - slight horizontal nystagmus noted b/l, normal visual acuity and visual maravilla, normal fundoscopic exam, however limited exam ENT: Positive: Normal ENT inspection, Hearing grossly normal, Pharynx normal, TMs normal, Uvula midline. Negative: Nasal congestion, Nasal drainage, TM bulging, TM dull, TM red, Tonsillar swelling, Tonsillar exudate Neck: Positive: Supple, Nontender, No Lymphadenopathy, Tenderness @ - paraspinal muscles b/l of cervical spine, no c-spine tenderness, Other: - FROM does increase pain when turning to right and looking down, is able to touch chin to chest. Negative: Nuchal Rigidity Respiratory/Lung Sounds: Positive: Clear to Auscultation, Breath Sounds Present. Negative: Rales, Rhonchi, Wheezes Cardiovascular: Positive: Normal, RRR, Pulses are Symmetrical in both Upper and Lower Extremities. Negative: Murmur, Rub Abdomen Description: Positive: Nontender, Soft Bowel Sounds: Positive: Present Musculoskeletal: Positive: Normal, Strength/ROM Intact. Negative: Limited @, Interruption @, Abnormal @, Pain @, Edema Left, Edema Right Neurological: Positive: Normal - no neuro deficits, normal memory and concentrationg, Sensory/Motor Intact, Alert, Oriented to Person Place, Time, CN Intact II-III, Reflexes Intact, NV Bundle Intact Distally, Normal Gait, Heel to Toe - normal, Finger to Nose - normal, Facial Symmetry, Speech Normal Psychiatric: Positive: Normal - [place] Coma Scale Best Eye Response: 4 - Spontaneous Best Motor Response: 6 - Obeys Commands Best Verbal Response: 5 - Oriented Coma Scale Total: 15 Diagnostics - Vital Signs Vital Signs Temp Pulse Resp BP Pulse Ox 05/14/17 08:52 97.8 F 73 14 126/72 99 - Laboratory Lab Statement: Any lab studies that have been ordered have been reviewed, and results considered in the medical decision making process. 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 The arch vessels are limited due to dense contrast from a left-sided IV injection. Internal carotid arteries in the neck shows no evidence of stenosis or carotid artery dissection. Intracranial vessels demonstrate no evidence of aneurysmal dilatation or branch occlusion. CT Interpretation Completed By: Radiologist Headache Course/Dx - Course Course Of Treatment: patient returns for testing that was supposed to be completed yesterday. labs were obtained yesterday and unremarkable. added on lyme serology, pending results. Given tylenol and then torodal for pain. CTA head and neck obtained and without abnormal findings. Patient pain/discomfort is 6/10. Labs normal. no concern for other emergent etiology at this time. does not appear to fit typical symptoms of pseudotumor cerebri, meningitis/ encephalitis, medication side effect, tumor or vasculature disorder. Normal PE findings, vitals and neurologic exam. Spoke with Dr Floyd about patient who agrees with plan. Recommend trying physical therapy, a different chiropractor and obtaining an MRI outpatient. patient agrees and understands. all questions answered. - Diagnoses Differential Diagnosis/HQI/PQRI: Migraine, Tension Headache, Other - sprain, strain, neck pain Provider Diagnoses: Neck pain, Headache Discharge - Discharge Plan Condition: Stable Disposition: HOME Patient Education Materials: Migraine Headache (ED), Neck Pain (ED) Referrals: Christine Moon MD [Primary Care Provider] - Marilia Hudson MD [Medical Doctor] - Additional Instructions: Recommend doing physical therapy. Also recommend a possible MRI, outpatient to discuss with PCP. Rest and apply warm compresses/heating pads. Continue medications as needed to help with pain and discomfort, whichever ones appear to be helpful. Make an appointment with neurologist to follow up. Also follow up with PCP. Any new or worsening symptoms please return to ED and seek medical attention
--- NOTE | 2017-05-14 10:36 | RAD ---
Indication: Neck pain and migraine headache CT of the brain was performed without IV contrast. Ventricular structures are midline. No midline shift is noted. The extra-axial spaces are unremarkable. There is no evidence of intracranial mass or hemorrhage. No other high or low density lesions are identified. Contrast: Administered 80.3 ml of OMNIPAQUE 350 mg/ml. CTA of the neck and head was performed after IV contrast administration. Coronal and sagittal reconstructed images were obtained. 3-D reconstructive images were also obtained. The origins of the great vessels are unremarkable although limited in evaluation due to left sided contrast injection which is against protocol. The common carotid arteries are patent bilaterally. The internal carotid arteries demonstrates no evidence of plaque. They are of normal caliber and without evidence of carotid artery dissection. There is a separate origin of the left vertebral artery from the aortic arch. Dominant right vertebral artery is noted. No evidence of vertebral artery dissection is noted. The soft tissues of the neck are grossly unremarkable. Parotid glands are grossly unremarkable. Submandibular glands are grossly unremarkable. The intracavernous portion of the internal carotid arteries bilaterally are patent. Anterior and middle cerebral arteries are unremarkable. No aneurysmal dilatation is noted. Posterior cerebral arteries are otherwise unremarkable. No branch occlusion is identified. There is a patent left posterior to indicating artery is noted. Basilar artery and right posterior cerebral arteries: No evidence of aneurysmal dilatation. 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 The arch vessels are limited due to dense contrast from a left-sided IV injection. Internal carotid arteries in the neck shows no evidence of stenosis or carotid artery dissection. Intracranial vessels demonstrate no evidence of aneurysmal dilatation or branch occlusion.
[2017-05-14] MEDS ORDERED: Ketorolac INJ* 30 MG/ML 1 ML VIAL IV PUSH ONE (12:14)
[2017-05-14 12:27] VITALS: BP 127/83
== END 2017-05-14 12:31 | disposition home or self-care (01) ==
LOC: ED 08:50
DX: M54.2 Cervicalgia (principal); R51 Headache; R11.2 Nausea with vomiting, unspecified; H53.8 Other visual disturbances; H53.149 Visual discomfort, unspecified
CPT/HCPCS: 70496; 70498; 96374; 99282; A9270-GY; J1885; Q9967

== ENCOUNTER 2017-05-16 06:54 | Emergency (ER) | payer OTHER ==
[2017-05-16] MEDS ORDERED: Famotidine IV* 10 MG/ML 2 ML (20 mg) IV ONE (07:40)
[2017-05-16] MEDS ORDERED: Ondansetron INJ* 2 MG/ML VIAL IV ONE (07:40)
[2017-05-16] MEDS ORDERED: NS 0.9% 1000 ML* 1,000 ML IV ONE (07:40)
[2017-05-16 08:02] LABS: Hematocrit 36 % (35-47); Hemoglobin 12.2 g/dl (12.0-16.0); Mean Corpuscular HGB Conc 34 g/dl (31-36); Mean Corpuscular Hemoglobin 32 pg (27-31); Mean Corpuscular Volume 94 fL (80-97); Mean Platelet Volume 8 um3 (7.4-10.4); Red Blood Count 3.79 10^6/ul (4.0-5.4); Red Cell Distribution Width 13 % (10.5-15); White Blood Count 7.5 10^3/ul (3.5-10.8)
[2017-05-16 08:22] LABS: ALT 9 U/L (7-52); AST 13 U/L (13-39); Albumin 3.8 g/dL (3.2-5.2); Alkaline Phosphatase 46 U/L (34-104); Anion Gap 6 mmol/L (2-11); BUN/Creatinine Ratio 19.5 (8-20); Blood Urea Nitrogen 16 mg/dL (6-24); C Reactive Protein 8.13 mg/L (< 5.00); CO2 Carbon Dioxide 24 mmol/L (22-32); Calcium 9.2 mg/dL (8.6-10.3); Chloride 105 mmol/L (101-111); EGFR African American 106.8 (>60); Glucose 90 mg/dL (70-100); Lipase 13 U/L (11.0-82.0); Potassium 4.2 mmol/L (3.5-5.0); Sodium 135 mmol/L (133-145); Total Protein 6.8 g/dL (6.4-8.9)
[2017-05-16 09:01] LABS: Urine Bacteria Absent (Absent); Urine Bilirubin Negative (Negative); Urine Glucose Negative (Negative); Urine Nitrite Negative (Negative)
[2017-05-16] MEDS ORDERED: Iohexol 300* (CONTRAST) 10 ML SDV IV ONE (09:10)
--- NOTE | 2017-05-16 09:52 | RAD ---
INDICATION: Abdominal pain/distention. History of ulcerative colitis. COMPARISON: November 04, 2016 CT TECHNIQUE: Multidetector CT images were obtained from the lung bases to the ischial tuberosities with 80 mL Omnipaque 300 IV and oral contrast. Multiplanar reformation. REPORT: Unremarkable visualized inferior thorax. Enteric contrast extends to the ileum but not the ileocecal valve. No CT abnormality of the upper GI, small bowel, appendix, or colon. Moderately large volume of formed stool in the colon without significant rectal distention. Negative for ascites, free air, hernias. Normal adrenal glands. Symmetric nephrograms and pyelograms. Negative for focal renal lesions, conspicuous stones, or hydronephrosis. Unremarkable nondilated ureters and urinary bladder as well as the anteverted uterus and adnexal regions. A few pelvic phleboliths are noted. Negative for lymphadenopathy. Normal diameter abdominal aorta and iliac arteries. Normal variant circumaortic LEFT renal vein. Physiologic distention of the IVC. Few small bone islands noted at the RIGHT femoral head. Negative for suspicious focal osseous lesions. IMPRESSION: 1. Normal appendix documented. No obstructive or inflammatory process of the bowel evident. Moderately large volume of stool throughout the colon. 2. No acute abdominal pelvic pathologic process evident.
[2017-05-16 10:21] VITALS: BP 108/64
--- NOTE | 2017-05-16 10:30 | ED ---
Liliane Luna Gabriel, scribed for Harley Floyd MD on 05/16/17 at 0735 . Abdominal Pain/Female - HPI Summary HPI Summary: This patient is a 26 year old F presenting to [facility] with a chief complaint of ABD pain since 2:00 this morning. The patient rates the pain 8/10 in severity and located behind her belly button. Symptoms alleviated by nothing. She took Dicyclomine with no relief. Patient reports nausea and abdominal bloating. Patient denies vomiting, diarrhea, blood in her stool, and any difficulty having a BM. Patient had her last meal at 18:00 the previous night and ate nothing unusual. Pt has a history of UC and has had similar flare ups previously. She denies contact with sick persons. - History of Current Complaint Chief Complaint: EDAbdPain Stated Complaint: ABD PAIN Time Seen by Provider: 05/16/17 07:30 Hx Obtained From: Patient Hx Last Menstrual Period: 06/29/14, NUVA RING Onset/Duration: Sudden Onset - 2:00, Still Present Timing: Constant Pain Intensity: 8 Pain Scale Used: 0-10 Numeric Location: Umbilical Alleviating Factor(s): Nothing Associated Signs and Symptoms: Positive: Negative - trouble having a BM, Nausea , Other: - bloating. Negative: Blood in Stool, Vomiting, Diarrhea Simlar Episode/Dx as:: Has UC Allergies/Adverse Reactions: Allergies Allergy/AdvReac Type Severity Reaction Status Date / Time Latex Allergy Mild Rash Verified 05/16/17 07:00 PMH/Surg Hx/FS Hx/Imm Hx Previously Healthy: No Endocrine/Hematology History: Reports: Hx Anemia Denies: Hx Anticoagulant Therapy, Hx Blood Disorders, Hx Blood Transfusions, Hx Bone Marrow Disease, Hx Diabetes, Hx Systemic Lupus Erythematosus, Hx Sickle Cell Disease, Hx Thyroid Disease, Hx Unexplained Bleeding Cardiovascular History: Reports: Other Cardiovascular Problems/Disorders - Tachy -admitted to [facility] on 08/30/13 Denies: Hx Aneurysm, Hx Angina, Hx Angioplasty, Hx Auto Implanted Cardiovert Defib, Hx Cardiac Arrest, Hx Cardiomegaly, Hx Congenital Heart Disease, Hx Congestive Heart Failure, Hx Coronary Artery Disease, Hx Deep Vein Thrombosis, Hx Embolism, Hx Hypercholesterolemia, Hx Hypotension, Hx Hypertension, Hx Pacemaker/ICD, Hx Peripheral Vascular Disease, Hx Rheumatic Fever, Hx Syncope, Hx Valvular Heart Disease Respiratory History: Reports: Hx Seasonal Allergies Denies: Hx Asthma, Hx Chronic Bronchitis, Hx Chronic Obstructive Pulmonary Disease (COPD), Hx Cystic Fibrosis, Hx Lung Cancer, Hx Pleural Effusion, Hx Pneumonia, Hx Pulmonary Edema, Hx Pulmonary Embolism, Hx Sleep Apnea GI History: Reports: Hx Irritable Bowel, Other GI Disorders - Ulcerative colitis , hx of pancreatitis Denies: Hx Cirrhosis, Hx Crohn's Disease, Hx Diverticulosis, Hx Gall Bladder Disease, Hx Gastroesophageal Reflux Disease, Hx Gastrointestinal Bleed, Hx Hiatal Hernia, Hx Jaundice, Hx Obstructive Bowel, Hx Ileostomy, Hx Pyloric Stenosis, Hx Ulcer Sensory History: Reports: Hx Contacts or Glasses Denies: Hx Cataracts, Hx Eye Injury, Hx Eye Prosthesis, Hx Glaucoma, Hx Legally Blind, Hx Macular Degeneration, Hx Vision Problem, Hx Deafness, Hx Hearing Aid, Hx Hearing Problem, Other Sensory Impairments Opthamlomology History: Reports: Hx Contacts or Glasses Denies: Hx Cataracts, Hx Eye Injury, Hx Eye Prosthesis, Hx Glaucoma, Hx Legally Blind, Hx Macular Degeneration, Hx Vision Problem, Other Sensory Impairments Neurological History: Reports: Hx Headaches - after remicade infusions, Hx Migraine Denies: Hx Dementia, Hx Developmental Delay, Hx Nerve Disease, Hx Seizures, Hx Spinal Cord Injury, Hx Transient Ischemic Attacks (TIA) Psychiatric History: Denies: Hx Panic Disorder - Surgical History Surgery Procedure, Year, and Place: Hammer toe corrections, tear duct, cyst removed from left wrist, tonsillectomy Hx Anesthesia Reactions: No - Immunization History Date of Tetanus Vaccine: within 10 years Date of Influenza Vaccine: none Infectious Disease History: No Infectious Disease History: Denies: Hx Clostridium Difficile, Hx Hepatitis, Hx Human Immunodeficiency Virus (HIV), Hx of Known/Suspected MRSA, Hx Shingles, Hx Tuberculosis, Hx Known/ Suspected VRE, Traveled Outside the [place] in Last 30 Days - Family History Known Family History: Positive: Diabetes, Other - migraines - Social History Alcohol Use: None Alcohol Amount: last Hx Substance Use: No Substance Use Type: Reports: Marijuana Substance Use Comment - Amount & Last Used: rarely Hx Tobacco Use: No Smoking Status (MU): Never Smoked Tobacco Review of Systems Negative: Fever Gastrointestinal: Negative - blood in stool, trouble having a BM Positive: Abdominal Pain, Nausea, Other - bloating. Negative: Vomiting, Diarrhea All Other Systems Reviewed And Are Negative: Yes Physical Exam - Summary Physical Exam Summary: VITAL SIGNS: Reviewed. GENERAL: Patient is a well-developed and nourished female who is lying comfortable in the stretcher. ~Patient is not in any acute respiratory distress. HEAD AND FACE: Normocephalic and atraumatic. EYES: PERRLA, EOMI x 2, No injected conjunctiva. EARS: Hearing grossly intact. Ear canals and tympanic membranes are WNL. MOUTH: Oropharynx within normal limits. NECK: Supple, trachea is midline, no adenopathy, no JVD. CHEST: Symmetric, no tenderness at palpation LUNGS: Clear to auscultation bilaterally. No wheezing or crackles. CVS: RRR, S1 and S2 present, no murmurs or gallops appreciated. ABDOMEN: Soft. No signs of distention. Positive bowel sounds. No rebound no guarding, and no masses palpated. No abdominal bruit or pulsations. Patient has periumbilical tenderness. EXTREMITIES: FROM in all major joints, no edema, no cyanosis or clubbing. NEURO: Alert and oriented x 3. No acute neurological deficits. Speech is normal. SKIN: Dry and warm Triage Information Reviewed: Yes Vital Signs On Initial Exam: Initial Vitals Temp Pulse Resp BP Pulse Ox 97.0 F 69 14 125/86 100 05/16/17 06:58 05/16/17 06:58 05/16/17 06:58 05/16/17 06:58 05/16/17 06:58 Vital Signs Reviewed: Yes Diagnostics - Vital Signs Vital Signs Temp Pulse Resp BP Pulse Ox 05/16/17 06:58 97.0 F 69 14 125/86 100 - Laboratory Lab Results: Lab Results 05/16/17 05/16/17 05/16/17 Range/Units 07:53 07:53 08:45 WBC 7.5 (3.5-10.8) 10^3/ul RBC 3.79 L (4.0-5.4) 10^6/ul Hgb 12.2 (12.0-16.0) g/dl Hct 36 (35-47) % MCV 94 (80-97) fL MCH 32 H (27-31) pg MCHC 34 (31-36) g/dl RDW 13 (10.5-15) % Plt Count 273 (150-450) 10^3/ul MPV 8 (7.4-10.4) um3 Neut % (Auto) 65.1 (38-83) % Lymph % (Auto) 26.0 (25-47) % Nelson % (Auto) 7.6 (1-9) % Eos % (Auto) 0.6 (0-6) % Baso % (Auto) 0.7 (0-2) % Absolute Neuts (auto) 4.9 (1.5-7.7) 10^3/ul Absolute Lymphs (auto) 1.9 (1.0-4.8) 10^3/ul Absolute Monos (auto) 0.6 (0-0.8) 10^3/ul Absolute Eos (auto) 0 (0-0.6) 10^3/ul Absolute Basos (auto) 0 (0-0.2) 10^3/ul Absolute Nucleated RBC 0 10^3/ul Nucleated RBC % 0 Sodium 135 (133-145) mmol/L Potassium 4.2 (3.5-5.0) mmol/L Chloride 105 (101-111) mmol/L Carbon Dioxide 24 (22-32) mmol/L Anion Gap 6 (2-11) mmol/L BUN 16 (6-24) mg/dL Creatinine 0.82 (0.51-0.95) mg/dL Est GFR ( Amer) 106.8 (>60) Est GFR (Non-Af Amer) 83.0 (>60) BUN/Creatinine Ratio 19.5 (8-20) Glucose 90 (70-100) mg/dL Calcium 9.2 (8.6-10.3) mg/dL Total Bilirubin 0.30 (0.2-1.0) mg/dL AST 13 (13-39) U/L ALT 9 (7-52) U/L Alkaline Phosphatase 46 (34-104) U/L C-Reactive Protein 8.13 H (< 5.00) mg/L Total Protein 6.8 (6.4-8.9) g/dL Albumin 3.8 (3.2-5.2) g/dL Globulin 3.0 (2-4) g/dL Albumin/Globulin Ratio 1.3 (1-3) Lipase 13 (11.0-82.0) U/L Beta HCG, Quant < 0.60 mIU/mL Urine Color Straw Urine Appearance Clear Urine pH 5.0 (5-9) Ur Specific [place] 1.008 L (1.010-1.030) Urine Protein Negative (Negative) Urine Ketones Negative (Negative) Urine Blood Negative (Negative) Urine Nitrate Negative (Negative) Urine Bilirubin Negative (Negative) Urine Urobilinogen Negative (Negative) Ur Leukocyte Esterase Trace H (Negative) Urine WBC (Auto) Trace(0-5/hpf) (Absent) Urine RBC (Auto) Absent (Absent) Ur Squamous Epith Cells Present H (Absent) Urine Bacteria Absent (Absent) Urine Glucose Negative (Negative) Result Diagrams: 05/16/17 07:53 05/16/17 07:53 Lab Statement: Any lab studies that have been ordered have been reviewed, and results considered in the medical decision making process. - CT CT ABD/Pelvis CT Interpretation Completed By: Radiologist - 1. Normal appendix documented. No obstructive or inflammatory process of the bowel evident. Moderately large volume of stool throughout the colon. 2. No acute abdominal pelvic pathologic process evident. Abdominal Pain Fem Course/Dx - Course Course Of Treatment: In the ED course an IV access was obtained. Patient was placed in a secured entrance monitor. Patient was started with IV fluids. She was given Zofran for nausea and Pepcid for bloating. Labs without any significant abnormality except for CRP 8.13. ABdominal and pelvic CT impression: 1. Normal appendix documented. No obstructive or inflammatory process of the bowel. evident. Moderately large volume of stool throughout the colon. 2. No acute abdominal pelvic pathologic process evident. After medications symptoms have improved. Since there is no blood abnormalities or CT abnormalities I will discharged patient with f/u of PMD. and GI. I discussed all the findings and test results with the patient. Patient was instructed to return to the emergency room immediately if any of the symptoms return or worsens. They were explained the possibility of an early abdominal pathology which was not detected at this time despite the physical exam and testing. They understand and agree. Abdominal exam before discharge: Soft, NT. No signs of distention. BS present. No rebound no guarding, and no masses palpated. Patient is alert and oriented and hemodynamically stable. Patient is to follow up with primary care physician in the next 2 to 3 days. Patient agree and understands. - Diagnoses Differential Diagnosis: Positive: Appendicitis, Bowel Obstruction, Constipation , Diverticulitis, Irritable Bowel Syndrome, Renal Colic, Urinary Tract Infection Provider Diagnoses: Diffuse abdominal pain Discharge - Discharge Plan Condition: Stable Disposition: HOME Patient Education Materials: Abdominal Pain (ED) Forms: *Work Release Referrals: Christine Moon MD [Primary Care Provider] - 3 Days Additional Instructions: RETURN TO THE EMERGENCY DEPARTMENT FOR CHANGING OR WORSENING SYMPTOMS. The documentation as recorded by the Liliane walters Gabriel accurately reflects the service I personally performed and the decisions made by Everett stephenson Walter, MD.
== END 2017-05-16 10:32 | disposition home or self-care (01) ==
LOC: ED 06:54
DX: R10.9 Unspecified abdominal pain (principal)
CPT/HCPCS: 36415; 74177; 80053; 81003; 81015; 83690; 84702; 85025; 86140; 87086; 96374; 96375; 99282; J2405; Q9967

== ENCOUNTER 2017-06-06 11:34 | Emergency (ER) | payer OTHER ==
[2017-06-06 11:53] VITALS: BP 110/70
--- NOTE | 2017-06-06 12:43 | UC ---
GI Bleed HPI - HPI Summary HPI Summary: PT WITH H/O ULCERATIVE COLITIS HAS BEEN OFF MEDS SINCE NOVEMBER 2016 DUE TO INSURANCE CHANGES. HAS HAD INCREASED MUCOUS PER RECTUM FOR PAST COUPLE OF MONTHS. THIS MORNING HAD GROSS BRBPR. ALSO REPORTED CP THAT SHE HAD WHILE SITTING ON THE TOILET. THIS PAIN HAS NOW RESOLVED. PT DENIES SOB, NAUSEA, FEVER. STATES SHE HAS HAD BLEEDING IN THE PAST AND WAS JUST IN THE ER A FEW WEEKS AGO FOR PAIN. PT IS REQUESTING PREDNISONE TO HELP CONTROL HER SX UNTIL SHE CAN BE SEEN BY GI IN THE NEW YEAR HER INSURANCE CHANGED AND SHE IS NOT COVERED AT THE MOMENT. - History Of Current Complaint Chief Complaint: UCAbdominalPain Stated Complaint: CHEST PAIN, ABDOMINAL PAIN, AND RECTAL BLEEDING Time Seen by Provider: 06/06/17 11:52 Hx Obtained From: Patient Hx Last Menstrual Period: mirena Onset/Duration: Sudden Onset, Lasting Hours Severity: Bright Red Blood per Rectum Severity Initially: Moderate Severity Currently: Moderate Pain Intensity: 8 Pain Scale Used: 0-10 Numeric Associated Pain: Discrete @ - LOWER ABDOMEN Character: Cramping Alleviating Factor(s): Other - NOTHING - Allergies/Home medications Allergies/Adverse Reactions: Allergies Allergy/AdvReac Type Severity Reaction Status Date / Time Latex Allergy Mild Rash Verified 05/16/17 07:00 PMH/Surg Hx/FS Hx/Imm Hx Other GI/ History: ULCERATIVE COLITIS Other History Of: Negative For: Anticoagulant Therapy - Surgical History Surgical History: Yes Surgery Procedure, Year, and Place: Hammer toe corrections, tear duct, cyst removed from left wrist, tonsillectomy - Family History Known Family History: Positive: Diabetes, Other - migraines - Social History Alcohol Use: None Alcohol Amount: last Substance Use Type: Marijuana Substance Use Comment - Amount & Last Used: rarely Smoking Status (MU): Never Smoked Tobacco - Immunization History Most Recent Influenza Vaccination: never Most Recent Tetanus Shot: 2006 Most Recent Pneumonia Vaccination: never Review of Systems Constitutional: Negative Respiratory: Negative Cardiovascular: Chest Pain Gastrointestinal: Abdominal Pain, Other - BLOOD PER RECTUM Genitourinary: Negative All Other Systems Reviewed And Are Negative: Yes Physical Exam Triage Information Reviewed: Yes Appearance: Well-Appearing, No Pain Distress, Well-Nourished Vital Signs: Initial Vital Signs Temp 98.2 F 06/06/17 11:50 Pulse 87 06/06/17 11:50 Resp 22 12/15/17 11:50 BP 110/70 06/06/17 11:50 Pulse Ox 100 06/06/17 11:50 Vital Signs Reviewed: Yes Eyes: Positive: Conjunctiva Clear ENT: Positive: Hearing grossly normal Neck: Positive: Supple, Nontender, No Lymphadenopathy Respiratory Exam: Normal Cardiovascular Exam: Normal Abdomen Description: Positive: Soft, Other: - MILDLY TENDER ACROSS LOWER ABDOMEN. NO REBOUND OR RIGIDITY.. Negative: CVA Tenderness (R), CVA Tenderness (L), Distended, Guarding Bowel Sounds: Positive: Present Musculoskeletal: Positive: No Edema Neurological: Positive: Alert Psychological: Positive: Age Appropriate Behavior Skin: Negative: rashes Diagnostics - EKG Cardiac Rate: NL Cardiac Rhythm: Sinus: Normal - 82 BPM Ectopy: None ST Segment: Normal Bleed Course/Dx - Course Course Of Treatment: PT HERE C/O FLARE OF UC. REQUESTING PREDNISONE TO HELP CONTROL SX UNTIL SHE CAN SEE GI IN JUNE. LOW THRESHOLD FOR GOING TO ER. WILL CHECK CBC TO ENSURE NO DANGEROUS ANEMIA. PT DECLINES EER TRANSFER. - Differential Dx/Diagnosis Provider Diagnoses: UC FLARE Discharge - Discharge Plan Condition: Stable Disposition: HOME Prescriptions: predniSONE TAB* [Deltasone TAB*] 10 mg PO DAILY #63 tab Patient Education Materials: Rectal Bleeding (ED), Ulcerative Colitis (ED) Forms: *Work Release Referrals: Christine Moon MD [Primary Care Provider] - If Needed Additional Instructions: LOW THRESHOLD FOR GOING TO THE ER. GO WITHOUT FAIL IF YOUR BLEEDING DOESN'T RESOLVE OF IF YOUR PAIN WORSENS OR IF YOU DEVELOP CHEST PAIN, SHORTNESS OF BREATH, NAUSEA, FEVER OR ANY OTHER CONCERNING SYMPTOMS. CBC DRAWN TODAY TO EVALUATE YOUR BLOOD COUNT. CALL GI FOR AN APPT FIRST THING IN JUNE ONCE YOUR INSURANCE COVERAGE IS ORGANIZED.
[2017-06-06 16:10] LABS: Hematocrit 34 % (35-47); Hemoglobin 11.9 g/dl (12.0-16.0); Mean Corpuscular HGB Conc 36 g/dl (31-36); Mean Corpuscular Hemoglobin 36 pg (27-31); Mean Corpuscular Volume 101 fL (80-97); Mean Platelet Volume 8 um3 (7.4-10.4); Red Blood Count 3.33 10^6/ul (4.0-5.4); Red Cell Distribution Width 13 % (10.5-15); White Blood Count 6.5 10^3/ul (3.5-10.8)
--- NOTE | 2017-06-07 16:05 | ED ---
Progress - Progress Note Progress Note: call patient. cbc no acute changes, mono (-) Course/Dx - Course Course Of Treatment: PT HERE C/O FLARE OF UC. REQUESTING PREDNISONE TO HELP CONTROL SX UNTIL SHE CAN SEE GI IN JUNE. LOW THRESHOLD FOR GOING TO ER. WILL CHECK CBC TO ENSURE NO DANGEROUS ANEMIA. PT DECLINES EER TRANSFER. - Diagnoses Provider Diagnoses: Stomach pain
== END 2017-06-06 12:30 | disposition home or self-care (01) ==
LOC: UCEAST 11:34
DX: K51.90 Ulcerative colitis, unspecified, without complications (principal); R07.9 Chest pain, unspecified
CPT/HCPCS: 36415; 85025; 99212; G0463

== ENCOUNTER 2017-08-11 12:38 | Emergency (ER) | payer OTHER ==
[2017-08-11 13:07] VITALS: BP 129/82
--- NOTE | 2017-08-11 13:35 | UC ---
Liliane Luna Gabriel, scribed for Janusz Singh MD on 08/11/17 at 1259 . Abdominal Pain Female HPI - HPI Summary HPI Summary: This patient is a 26 year old F [place] [facility] [place] a chief complaint of right sided ABD/flank pain that began 3 days ago. The patient rates the intermittent pain 7/10 in severity. Pt has also had a low grade fever, pleuritic pain, and green colored urine. Patient denies dysuria, increased suprapubic pain, CP, and blood in her stool. Hx pancreatitis, ulcerative colitis and IBS. She states the pain is similar to her ABD from UC but is on the opposite side. - History of Current Complaint Stated Complaint: ABD PAIN CHEST PAIN Time Seen by Provider: 08/11/17 12:42 Hx Obtained From: Patient Hx Last Menstrual Period: mirena Onset/Duration: Lasting Days, Still Present Timing: Intermittent Episodes Lasting: Severity Initially: Moderate Severity Currently: Moderate Location: Discrete At: RUQ, Discrete At: RLQ Radiates: No Allergies/Adverse Reactions: Allergies Allergy/AdvReac Type Severity Reaction Status Date / Time latex Allergy Rash Verified 08/11/17 13:13 Home Medications: Home Medications Escitalopram Oxalate [Lexapro 10 mg] 10 mg PO DAILY 08/11/17 [History Confirmed 08/11/17] Propranolol HCl 10 mg PO DAILY PRN 08/11/17 [History Confirmed 08/11/17] PMH/Surg Hx/FS Hx/Imm Hx Other GI/ History: pancreatitis and ulcerative colitis Other History Of: Negative For: Anticoagulant Therapy - Surgical History Surgical History: Yes Surgery Procedure, Year, and Place: Hammer toe corrections, tear duct, cyst removed from left wrist, tonsillectomy - Family History Known Family History: Positive: Diabetes, Other - migraines Negative: Renal Disease, Respiratory Disease, Seizure Disorder - Social History Occupation: Employed Full-time Alcohol Use: None Alcohol Amount: last Substance Use Type: Marijuana Substance Use Comment - Amount & Last Used: rarely Smoking Status (MU): Never Smoked Tobacco - Immunization History Most Recent Influenza Vaccination: never Most Recent Tetanus Shot: 2006 Most Recent Pneumonia Vaccination: never Review of Systems Constitutional: Fever Respiratory: Other - pleuritic pain Gastrointestinal: Abdominal Pain Genitourinary: Other - green urine Musculoskeletal: Other: - flank pain All Other Systems Reviewed And Are Negative: Yes Physical Exam Triage Information Reviewed: Yes Vital Signs: Initial Vital Signs Temp 99.0 F 08/11/17 12:57 Pulse 80 08/11/17 12:57 Resp 16 08/11/17 12:57 BP 129/82 08/11/17 12:57 Pulse Ox 100 08/11/17 12:57 Vital Signs Reviewed: Yes - Additional Comments General: well-appearing, no pain distress Skin: warm, color reflects adequate perfusion, dry Head: normal Eyes: EOMI, [place] ENT: normal Neck: supple, nontender Respiratory: CTA, breath sounds present Cardiovascular: RRR Abdomen: soft, mildly TTP in right flank. Mild tenderness in right ABD. No rebound Bowel: present Musculoskeletal: normal, strength/ROM intact Neurological: normal, sensory/motor intact, A&O x3 Psychological: affect/mood appropriate Abd Pain Female Course/Dx - Course Course Of Treatment: BP noted and advised to follow up with PCP . Allergies noted. PATIENT HAS A HX OF PANCREATITIS. DUE TO OUR INABILITY TO GET LAB RESULTS BACK TODAY, I RECOMMENDED FURTHER EVALUATION IN THE ED. MEAGHAN AGREED TO GO TO THE ED FOR FURTHER EVALUATION. - Differential Dx/Diagnosis Provider Diagnoses: RIGHT FLANK PAIN. ABDOMINAL PAIN. Elevated bp without history of hypertension Discharge - Discharge Plan Condition: Stable Disposition: HOME Patient Education Materials: Abdominal Pain (ED), Flank Pain (ED) Referrals: [facility] [place] [facility]IAN REFERRAL [Outside] Additional Instructions: GO TO THE EMERGENCY DEPARTMENT FOR FURTHER EVALUATION OF YOUR FLANK AND ABDOMINAL PAIN. Your blood pressure was elevated during today's visit. Please follow up with your primary care provider in 1-2 weeks. The documentation as recorded by the Liliane walters Gabriel accurately reflects the service I personally performed and the decisions made by me, Janusz Singh MD.
== END 2017-08-11 13:40 | disposition home or self-care (01) ==
LOC: UCEAST 12:38
DX: R10.11 Right upper quadrant pain (principal); R10.31 Right lower quadrant pain; R03.0 Elevated blood-pressure reading, without diagnosis of hypertension; R50.9 Fever, unspecified; R07.81 Pleurodynia; R82.99 Other abnormal findings in urine; Z91.040 Latex allergy status; Z32.02 Encounter for pregnancy test, result negative
CPT/HCPCS: 81003; 84702; 93005; 99212; G0463

== ENCOUNTER 2017-08-11 13:54 | Emergency (ER) | payer OTHER ==
[2017-08-11 14:00] VITALS: BP 131/73
== END 2017-08-11 15:28 | disposition left against medical advice (07) ==
LOC: ED 13:54
DX: R10.9 Unspecified abdominal pain (principal); Z53.21 Procedure and treatment not carried out due to patient leaving prior to being seen by health care provider

== ENCOUNTER 2017-09-02 14:57 | Emergency (ER) | payer OTHER ==
[2017-09-02] MEDS ORDERED: Metoclopramide IV* 5 MG/ML 2 ML VIAL IV SLOW PU ONE (15:21)
[2017-09-02] MEDS ORDERED: diPHENhydraMINE IV* 50 MG/ML 1 ml VIAL (BENADRYL) SLOW PUSH ONE (15:21)
[2017-09-02] MEDS ORDERED: NS 0.9% 1000 ML* 1,000 ML IV ONE (15:21)
--- NOTE | 2017-09-02 16:19 | RAD ---
INDICATION: Headache. COMPARISON: Comparison is made with a prior study from August 31, 2016. TECHNIQUE: Contiguous axial sections of the brain were obtained from the skull base to the vertex without contrast. FINDINGS: The ventricles, cisterns and sulci are within normal limits. No significant focal abnormality or mass effect is seen. There is no evidence for hemorrhage. No significant focal osseous abnormality is seen. The visualized portion of the paranasal sinuses. IMPRESSION: NO EVIDENCE FOR ACUTE INTRACRANIAL ABNORMALITY.
[2017-09-02 16:27] LABS: Hematocrit 35 % (35-47); Hemoglobin 12.2 g/dl (12.0-16.0); Mean Corpuscular HGB Conc 35 g/dl (31-36); Mean Corpuscular Hemoglobin 32 pg (27-31); Mean Corpuscular Volume 93 fL (80-97); Mean Platelet Volume 8 um3 (7.4-10.4); Platelet Count 300 10^3/ul (150-450); Red Blood Count 3.77 10^6/ul (4.0-5.4); Red Cell Distribution Width 13 % (10.5-15); White Blood Count 7.1 10^3/ul (3.5-10.8)
[2017-09-02] MEDS ORDERED: Magnesium Sulfate 2 GM IV* 2 GM/50 ML BAG IVPB ONE (16:48)
[2017-09-02] MEDS ORDERED: PROCHLORPERAZINE INJ 5 MG/ML 2 ML VIAL IV ONE (16:48)
[2017-09-02] MEDS ORDERED: Diazepam TAB(*) 5 MG PO ONE (17:43)
[2017-09-02] MEDS ORDERED: Ketorolac INJ* 30 MG/ML 1 ML VIAL IV PUSH ONE (18:32)
[2017-09-02 19:45] VITALS: BP 111/72
--- NOTE | 2017-09-13 14:09 | ED ---
Liliane Luna Gabriel, scribed for Lucho Reich MD on 09/02/17 at 1522 . Headache - HPI Summary HPI Summary: This patient is a 26 year old F presenting to [facility] with a chief complaint of a headache since 08-31-17. Pt woke up with a cramp in her neck on 08-30 and the next day she had a severe migraine and has been having migraines every day since. Initially she was given Toradol and Zofran which was successfully relieved symptoms, once but the second time she was given this it did not alleviate anything. The patient rates the pain 10 in severity. Patient reports vomiting secondary to pain, photophobia, cough, and low grade fever 99.9. Patient denies myalgia, dysuria, chills, diaphoresis, and ABD pain. Hx of migraines and gets them once a week. She has never had one this bad and it has lasted much longer. - History Of Current Complaint Chief Complaint: EDHeadache Stated Complaint: FEVER/MIGRAINE/NECK PAIN Time Seen by Provider: 09/02/17 15:11 Hx Obtained From: Patient Hx Last Menstrual Period: mirena Onset/Duration: Started days ago - 2, Still Present Initially Headache Was: Initial Pain Scale(0-10)= - 7 Currently Pain Is: Current Pain Scale(0-10)= - 7 Timing: Constant Character: Migraine Associated Signs And Symptoms: Negative - myalgia, dysuria, chills, diaphoresis , ABD pain,, Vomiting, Fever, Other (Noted In Comments) - photophobia, cough, - Allergies/Home Medications Allergies/Adverse Reactions: Allergies Allergy/AdvReac Type Severity Reaction Status Date / Time latex Allergy Rash Verified 09/06/17 09:16 PMH/Surg Hx/FS Hx/Imm Hx Endocrine/Hematology History: Reports: Hx Anemia Denies: Hx Anticoagulant Therapy, Hx Blood Disorders, Hx Blood Transfusions, Hx Bone Marrow Disease, Hx Diabetes, Hx Systemic Lupus Erythematosus, Hx Sickle Cell Disease, Hx Thyroid Disease, Hx Unexplained Bleeding Cardiovascular History: Reports: Other Cardiovascular Problems/Disorders - Tachy -admitted to [facility] on 08/30/13 Denies: Hx Aneurysm, Hx Angina, Hx Angioplasty, Hx Auto Implanted Cardiovert Defib, Hx Cardiac Arrest, Hx Cardiomegaly, Hx Congenital Heart Disease, Hx Congestive Heart Failure, Hx Coronary Artery Disease, Hx Deep Vein Thrombosis, Hx Embolism, Hx Hypercholesterolemia, Hx Hypotension, Hx Hypertension, Hx Pacemaker/ICD, Hx Peripheral Vascular Disease, Hx Rheumatic Fever, Hx Syncope, Hx Valvular Heart Disease Respiratory History: Reports: Hx Seasonal Allergies Denies: Hx Asthma, Hx Chronic Bronchitis, Hx Chronic Obstructive Pulmonary Disease (COPD), Hx Cystic Fibrosis, Hx Lung Cancer, Hx Pleural Effusion, Hx Pneumonia, Hx Pulmonary Edema, Hx Pulmonary Embolism, Hx Sleep Apnea GI History: Reports: Hx Irritable Bowel, Other GI Disorders - Ulcerative colitis , hx of pancreatitis Denies: Hx Cirrhosis, Hx Crohn's Disease, Hx Diverticulosis, Hx Gall Bladder Disease, Hx Gastroesophageal Reflux Disease, Hx Gastrointestinal Bleed, Hx Hiatal Hernia, Hx Jaundice, Hx Obstructive Bowel, Hx Ileostomy, Hx Pyloric Stenosis, Hx Ulcer Sensory History: Reports: Hx Contacts or Glasses Denies: Hx Cataracts, Hx Eye Injury, Hx Eye Prosthesis, Hx Glaucoma, Hx Legally Blind, Hx Macular Degeneration, Hx Vision Problem, Hx Deafness, Hx Hearing Aid, Hx Hearing Problem, Other Sensory Impairments Opthamlomology History: Reports: Hx Contacts or Glasses Denies: Hx Cataracts, Hx Eye Injury, Hx Eye Prosthesis, Hx Glaucoma, Hx Legally Blind, Hx Macular Degeneration, Hx Vision Problem, Other Sensory Impairments Neurological History: Reports: Hx Headaches - after remicade infusions, Hx Migraine Denies: Hx Dementia, Hx Developmental Delay, Hx Nerve Disease, Hx Seizures, Hx Spinal Cord Injury, Hx Transient Ischemic Attacks (TIA) Psychiatric History: Denies: Hx Panic Disorder - Surgical History Surgery Procedure, Year, and Place: Hammer toe corrections, tear duct, cyst removed from left wrist, tonsillectomy Hx Anesthesia Reactions: No - Immunization History Date of Tetanus Vaccine: within 10 years Date of Influenza Vaccine: none Infectious Disease History: No Infectious Disease History: Denies: Hx Clostridium Difficile, Hx Hepatitis, Hx Human Immunodeficiency Virus (HIV), Hx of Known/Suspected MRSA, Hx Shingles, Hx Tuberculosis, Hx Known/ Suspected VRE, Hx Known/Suspected VRSA, History Other Infectious Disease, Traveled Outside the [place] in Last 30 Days - Family History Known Family History: Positive: Diabetes, Other - migraines Negative: Renal Disease, Respiratory Disease, Seizure Disorder - Social History Alcohol Use: None Alcohol Amount: last Hx Substance Use: No Substance Use Type: Reports: Marijuana Substance Use Comment - Amount & Last Used: rarely Hx Tobacco Use: No Smoking Status (MU): Never Smoked Tobacco Review of Systems Positive: Fever. Negative: Chills, Skin Diaphoresis Positive: Photophobia. Negative: Erythema Negative: Sore Throat Negative: Chest Pain Positive: Cough. Negative: Shortness Of Breath Positive: Vomiting. Negative: Abdominal Pain, Nausea Negative: dysuria, hematuria Negative: Myalgia, Edema Negative: Rash Neurological: Negative - dizziness All Other Systems Reviewed And Are Negative: Yes Physical Exam - Summary Physical Exam Summary: Constitutional: Well-developed, Well-nourished, Alert. (-) Distressed Skin: Warm, Dry HENT: Normocephalic; Atraumatic Eyes: Conjunctiva normal Neck: Musculoskeletal ROM normal neck. (-) JVD, (-) Stridor, (-) Tracheal deviation Cardio: Rhythm regular, rate normal, Heart sounds normal; Intact distal pulses; The pedal pulses are 2+ and symmetric. Radial pulses are 2+ and symmetric. (-) Murmur Pulmonary/Chest wall: Effort normal. (-) Respiratory distress, (-) Wheezes, (-) Rales Abd: Soft, (-) Tenderness, (-) Distension, (-) Guarding, (-) Rebound Musculoskeletal: (-) Edema, nuchal rigidity, no cervical lymphadenopathy Lymph: (-) Cervical adenopathy Neuro: Alert, Oriented x3 Psych: Mood and affect Normal GCS 15 Triage Information Reviewed: Yes Vital Signs On Initial Exam: Initial Vitals Temp Pulse Resp BP Pulse Ox 98.2 F 67 18 123/78 100 09/02/17 14:59 09/02/17 14:59 09/02/17 14:59 09/02/17 14:59 09/02/17 14:59 Vital Signs Reviewed: Yes Procedures - Lumbar Puncture Position: Lateral Decubitus - left lateral Aseptic Technique: Other - Iodine Anesthesia Used: 1.0% Lido Spinal Needle Used: 22 Gauge - 3.5in Lumbar Puncture Note: Entry in to L4, L5 inter space Diagnostics - Vital Signs Vital Signs Temp Pulse Resp BP Pulse Ox 09/02/17 14:59 98.2 F 67 18 123/78 100 - Laboratory Lab Results: Lab Results 09/02/17 09/02/17 09/02/17 Range/Units 16:11 16:11 17:19 WBC 7.1 (3.5-10.8) 10^3/ul RBC 3.77 L (4.0-5.4) 10^6/ul Hgb 12.2 (12.0-16.0) g/dl Hct 35 (35-47) % MCV 93 (80-97) fL MCH 32 H (27-31) pg MCHC 35 (31-36) g/dl RDW 13 (10.5-15) % Plt Count 300 (150-450) 10^3/ul MPV 8 (7.4-10.4) um3 ESR 29 H (0-14) mm/Hr C-Reactive Protein 4.01 (< 5.00) mg/L Beta HCG, Quant < 0.60 mIU/mL Fluid Source Cerebral spinal Fluid Volume 1 mL Fluid Color Colorless Fluid Appearance Clear Fluid WBC 0 /mcL Fluid RBC 0 /mcL Fluid Tot Cell Count 1 Fluid Neutrophils Not Reportable Fluid Lymphocytes 100 % Fluid Cell Count Rvw By CSF Cell Count Tube # 4 CSF Glucose (40-70) mg/dL CSF Total Protein (15-45) mg/dL 09/02/17 Range/Units 17:19 WBC (3.5-10.8) 10^3/ul RBC (4.0-5.4) 10^6/ul Hgb (12.0-16.0) g/dl Hct (35-47) % MCV (80-97) fL MCH (27-31) pg MCHC (31-36) g/dl RDW (10.5-15) % Plt Count (150-450) 10^3/ul MPV (7.4-10.4) um3 ESR (0-14) mm/Hr C-Reactive Protein (< 5.00) mg/L Beta HCG, Quant mIU/mL Fluid Source Fluid Volume mL Fluid Color Fluid Appearance Fluid WBC /mcL Fluid RBC /mcL Fluid Tot Cell Count Fluid Neutrophils Fluid Lymphocytes % Fluid Cell Count Rvw By CSF Cell Count Tube # CSF Glucose 57 (40-70) mg/dL CSF Total Protein 24 (15-45) mg/dL Result Diagrams: 09/02/17 16:11 Lab Statement: Any lab studies that have been ordered have been reviewed, and results considered in the medical decision making process. - CT CT Brain CT Interpretation Completed By: Radiologist - NO EVIDENCE FOR ACUTE INTRACRANIAL ABNORMALITY. ED physician has reviewed this radiology report. Re-Evaluation - Re-Evaluation First Eval Re-Evaluation Time: 19:32 Change: Improved Comment: The patient's headache has resolved Headache Course/Dx - Course Assessment/Plan: CT Brain reveals, per radiologist, NO EVIDENCE FOR ACUTE INTRACRANIAL ABNORMALITY. Test results with no significant abnormalities. CSF labs were insignificant. In the ED course the patient was given reglan, valium , Benadryl, toradol, magnesium sulfate, reglan, Compazine, and IV fluids. Cervial SHEEHAN. Patient will be discharged with prescription for Valium and Naproxen and follow up from PCP in 3 days. The patient is agreeable with this plan. - Diagnoses Provider Diagnoses: Cervical headache Discharge - Sign-Out/Discharge Documenting (check all that apply): Discharge - DC - Discharge Plan Condition: Stable Disposition: HOME Prescriptions: Diazepam TAB(*) [Valium TAB(*)] 5 mg PO Q6H PRN #8 tab MDD 4 PRN Reason: Headache Naproxen TAB* [Naprosyn 250 mg TAB*] 500 mg PO Q8H PRN #20 tab PRN Reason: Pain - Moderate To Severe Patient Education Materials: Migraine Headache (ED), Acute Headache (ED) Forms: *Work Release Referrals: Christine Moon MD [Primary Care Provider] - 3 Days Additional Instructions: RETURN TO EMERGENCY DEPARTMENT FOR ANY NEW OR WORSENING SYMPTOMS - Billing Disposition and Condition Condition: STABLE Disposition: HOME The documentation as recorded by the Liliane walters Gabriel accurately reflects the service I personally performed and the decisions made by , Lucho Reich MD.
== END 2017-09-02 19:57 | disposition home or self-care (01) ==
LOC: ED 14:57
DX: R51 Headache (principal); H53.149 Visual discomfort, unspecified; R11.10 Vomiting, unspecified
CPT/HCPCS: 36415; 70450; 82945; 84157; 84702; 85027; 85652; 86140; 87040; 87070; 87205; 89051; 96374; 96375; 99284; A9270-GY; J0780; J1200; J1885; J2765; J3475

== ENCOUNTER 2017-09-03 20:18 | Emergency (ER) | payer OTHER ==
[2017-09-03] MEDS ORDERED: Ketorolac INJ* 30 MG/ML 1 ML VIAL IV PUSH ONE (22:00)
[2017-09-03] MEDS ORDERED: diPHENhydraMINE IV* 50 MG/ML 1 ml VIAL (BENADRYL) IV ONE (22:01)
[2017-09-03] MEDS ORDERED: Metoclopramide IV* 5 MG/ML 2 ML VIAL IV SLOW PU ONE (22:01)
[2017-09-03] MEDS ORDERED: Dexamethasone IV* 4 MG/ML 1 ML (4 MG) IV SLOW PU ONE (22:02)
[2017-09-03] MEDS ORDERED: NS 0.9% 1000 ML* 1,000 ML IV ONE (22:02)
[2017-09-04 00:11] VITALS: BP 100/58
--- NOTE | 2017-09-04 01:38 | ED ---
Brandon Luna Abhishek, scribed for Porsha Nazario MD on 09/04/17 at 0012 . Headache - HPI Summary HPI Summary: The pt is a 26 y/o female with a chief complaint of SHEEHAN. The pt has had head pains for 12 days and was reportedly in the [facility] previously. Currently, the pt reports a cramp on her neck and that she is unable to move her neck. Earlier today, she described her SHEEHAN to have worsened and that she was "waking up with migraines." Pt has a hx of migraines for 5 years. In the prior ED visit, the pt received a spinal tap and was also prescribed valium (muscle relaxant; taken 5 hr ago). [address] scan was also done on the pt. Pt denies fever, numbness, and tingling. Symptoms aggravated with bright lights. The patient rates the pain 10/ 10 in severity. - History Of Current Complaint Chief Complaint: EDHeadache Stated Complaint: HEADACHE/STIFF NECK/VOMITING Time Seen by Provider: 09/03/17 21:41 Hx Last Menstrual Period: mirena Initially Headache Was: "Worst Headache Ever" Currently Pain Is: Current Pain Scale(0-10)= - 10 Character: Migraine Aggravating Factor: Bright Lights Allevating Factors: Nothing - Allergies/Home Medications Allergies/Adverse Reactions: Allergies Allergy/AdvReac Type Severity Reaction Status Date / Time latex Allergy Rash Verified 09/02/17 15:49 PMH/Surg Hx/FS Hx/Imm Hx Endocrine/Hematology History: Reports: Hx Anemia Denies: Hx Anticoagulant Therapy, Hx Blood Disorders, Hx Blood Transfusions, Hx Bone Marrow Disease, Hx Diabetes, Hx Systemic Lupus Erythematosus, Hx Sickle Cell Disease, Hx Thyroid Disease, Hx Unexplained Bleeding Cardiovascular History: Reports: Other Cardiovascular Problems/Disorders - Tachy -admitted to tele on 08/30/13 Denies: Hx Aneurysm, Hx Angina, Hx Angioplasty, Hx Auto Implanted Cardiovert Defib, Hx Cardiac Arrest, Hx Cardiomegaly, Hx Congenital Heart Disease, Hx Congestive Heart Failure, Hx Coronary Artery Disease, Hx Deep Vein Thrombosis, Hx Embolism, Hx Hypercholesterolemia, Hx Hypotension, Hx Hypertension, Hx Pacemaker/ICD, Hx Peripheral Vascular Disease, Hx Rheumatic Fever, Hx Syncope, Hx Valvular Heart Disease Respiratory History: Reports: Hx Seasonal Allergies Denies: Hx Asthma, Hx Chronic Bronchitis, Hx Chronic Obstructive Pulmonary Disease (COPD), Hx Cystic Fibrosis, Hx Lung Cancer, Hx Pleural Effusion, Hx Pneumonia, Hx Pulmonary Edema, Hx Pulmonary Embolism, Hx Sleep Apnea GI History: Reports: Hx Irritable Bowel, Other GI Disorders - Ulcerative colitis , hx of pancreatitis Denies: Hx Cirrhosis, Hx Crohn's Disease, Hx Diverticulosis, Hx Gall Bladder Disease, Hx Gastroesophageal Reflux Disease, Hx Gastrointestinal Bleed, Hx Hiatal Hernia, Hx Jaundice, Hx Obstructive Bowel, Hx Ileostomy, Hx Pyloric Stenosis, Hx Ulcer Sensory History: Reports: Hx Contacts or Glasses Denies: Hx Cataracts, Hx Eye Injury, Hx Eye Prosthesis, Hx Glaucoma, Hx Legally Blind, Hx Macular Degeneration, Hx Vision Problem, Hx Deafness, Hx Hearing Aid, Hx Hearing Problem, Other Sensory Impairments Opthamlomology History: Reports: Hx Contacts or Glasses Denies: Hx Cataracts, Hx Eye Injury, Hx Eye Prosthesis, Hx Glaucoma, Hx Legally Blind, Hx Macular Degeneration, Hx Vision Problem, Other Sensory Impairments Neurological History: Reports: Hx Headaches - after remicade infusions, Hx Migraine Denies: Hx Dementia, Hx Developmental Delay, Hx Nerve Disease, Hx Seizures, Hx Spinal Cord Injury, Hx Transient Ischemic Attacks (TIA) Psychiatric History: Denies: Hx Panic Disorder - Surgical History Surgery Procedure, Year, and Place: Hammer toe corrections, tear duct, cyst removed from left wrist, tonsillectomy Hx Anesthesia Reactions: No - Immunization History Date of Tetanus Vaccine: within 10 years Date of Influenza Vaccine: none Infectious Disease History: No Infectious Disease History: Denies: Hx Clostridium Difficile, Hx Hepatitis, Hx Human Immunodeficiency Virus (HIV), Hx of Known/Suspected MRSA, Hx Shingles, Hx Tuberculosis, Hx Known/ Suspected VRE, Hx Known/Suspected VRSA, History Other Infectious Disease, Traveled Outside the [place] in Last 30 Days - Family History Known Family History: Positive: Diabetes, Other - migraines Negative: Renal Disease, Respiratory Disease, Seizure Disorder - Social History Alcohol Use: Rare Alcohol Amount: last Hx Substance Use: No Substance Use Type: Reports: None Substance Use Comment - Amount & Last Used: rarely Hx Tobacco Use: No Smoking Status (MU): Never Smoked Tobacco Review of Systems Negative: Fever Eyes: Negative ENT: Negative Cardiovascular: Negative Respiratory: Negative Gastrointestinal: Negative Genitourinary: Negative Musculoskeletal: Other - Low Range of motion of Neck Positive: Other - Neck cramp Skin: Negative Neurological: Other - Negative numbness and tingling Positive: Headache All Other Systems Reviewed And Are Negative: Yes Physical Exam - Summary Physical Exam Summary: VITAL SIGNS: Reviewed. GENERAL: ~Patient is a well-developed and nourished ( FEMALE) who is lying comfortable in the stretcher. Patient is not in any acute respiratory distress. HEAD AND FACE: No signs of trauma. No ecchymosis, hematomas or skull depressions. No sinus tenderness. EYES: PERRLA, EOMI x 2, No injected conjunctiva, no nystagmus. EARS: Hearing grossly intact. Ear canals and tympanic membranes are within normal limits. MOUTH: Oropharynx within normal limits. NECK: Supple, trachea is midline, no adenopathy, no JVD, no carotid bruit, no c- spine tenderness, neck with full ROM. CHEST: Symmetric, n SKIN: Dry and warm o tenderness at palpation LUNGS: Clear to auscultation bilaterally. No wheezing or crackles. CVS: Regular rate and rhythm, S1 and S2 present, no murmurs or gallops appreciated. ABDOMEN: Soft, non-tender. No signs of distention. No rebound no guarding, and no masses palpated. Bowel sounds are normal. EXTREMITIES: FROM in all major joints, no edema, no cyanosis or clubbing. NEURO: Alert and oriented x 3. No acute neurological deficits. Speech is normal and follows commands. Triage Information Reviewed: Yes Vital Signs On Initial Exam: Initial Vitals Temp Pulse Resp BP Pulse Ox 98.2 F 97 16 127/90 99 09/03/17 20:29 09/03/17 20:29 09/03/17 20:29 09/03/17 20:29 09/03/17 20:29 Vital Signs Reviewed: Yes Diagnostics - Vital Signs Vital Signs Temp Pulse Resp BP Pulse Ox 09/04/17 00:09 97.8 F 86 15 100/58 98 09/03/17 20:29 98.2 F 97 16 127/90 99 - Laboratory Lab Statement: Any lab studies that have been ordered have been reviewed, and results considered in the medical decision making process. Headache Course/Dx - Course Course Of Treatment: Pt is a 26 y/o female with a chief complaint of SHEEHAN. She also reports of neck cramps and low range of motion of the neck. The pt denies fevers, numbness and tingling. She was here previously in the [facility] and received a spinal tap and was prescirbed valium. The pt's SHEEHAN came back this morning. Upon reevaluation, the pt was feeling better. The pt will be discharged home with a dx of [place] SHEEHAN. - Diagnoses Provider Diagnoses: Migraine headache Discharge - Discharge Plan Condition: Improved Disposition: HOME Patient Education Materials: Migraine Headache (ED), Acute Headache (ED) Referrals: Christine Moon MD [Primary Care Provider] - (Follow up with PCP within 2 to 3 days.) Additional Instructions: RETURN TO EMERGENCY DEPARTMENT FOR ANY NEW OR WORSENING SYMPTOMS The documentation as recorded by the Brandon walters Abhishek accurately reflects the service I personally performed and the decisions made by me, Porsha Nazario MD.
== END 2017-09-04 00:11 | disposition home or self-care (01) ==
LOC: ED 20:18
DX: G43.909 Migraine, unspecified, not intractable, without status migrainosus (principal)
CPT/HCPCS: 96374; 96375; 99283; J1100; J1200; J1885; J2765

== ENCOUNTER 2017-09-05 10:32 | Emergency (ER) | payer OTHER ==
[2017-09-05] MEDS ORDERED: NS 0.9% 1000 ML* 1,000 ML IV ONE (13:06)
[2017-09-05] MEDS ORDERED: diPHENhydraMINE IV* 50 MG/ML 1 ml VIAL (BENADRYL) IV ONE (13:06)
[2017-09-05] MEDS ORDERED: Metoclopramide IV* 5 MG/ML 2 ML VIAL IV ONE (13:06)
[2017-09-05 13:28] LABS: ABS Basophils 0 10^3/ul (0-0.2); ABS Eosinophils 0.1 10^3/ul (0-0.6); ABS Lymphocytes 2.9 10^3/ul (1.0-4.8); ABS Monocytes 0.4 10^3/ul (0-0.8); ABS Neutrophils 3.3 10^3/ul (1.5-7.7); ABS Nucleated RBC 0 10^3/ul; Eosinophil % 0.8 % (0-6); Hematocrit 33 % (35-47); Hemoglobin 11.6 g/dl (12.0-16.0); Lymphocyte % 43.5 % (25-47); Mean Corpuscular HGB Conc 36 g/dl (31-36); Mean Corpuscular Hemoglobin 33 pg (27-31); Mean Corpuscular Volume 93 fL (80-97); Mean Platelet Volume 8 um3 (7.4-10.4); Nucleated Red Blood Cells % 0.1; Platelet Count 270 10^3/ul (150-450); Red Blood Count 3.53 10^6/ul (4.0-5.4); Red Cell Distribution Width 12 % (10.5-15); White Blood Count 6.7 10^3/ul (3.5-10.8)
[2017-09-05 13:44] LABS: EGFR Non-African American 93.5 (>60)
[2017-09-05] MEDS ORDERED: PROCHLORPERAZINE INJ 5 MG/ML 2 ML VIAL IV ONE (14:22)
[2017-09-05] MEDS ORDERED: Ketorolac INJ* 30 MG/ML 1 ML VIAL IV PUSH ONE (14:26)
[2017-09-05] MEDS ORDERED: SUMAtriptan SQ* 6 MG/0.5 ML VIAL SUBCUT ONE (17:03)
[2017-09-05] MEDS ORDERED: Dexamethasone IV* 4 MG/ML 1 ML (4 MG) IV SLOW PU ONE (17:04)
[2017-09-05] MEDS ORDERED: Magnesium Sulfate 1 GM IV* 1 GM/100 ML BAG IV ONE (17:06)
--- NOTE | 2017-09-05 17:23 | ED ---
Rafael Luna Jason, scribed for Nadia Nunez MD on 09/05/17 at 1415 . Headache - HPI Summary HPI Summary: This patient is a 26 year old F presenting to [facility] with a chief complaint of headache for 6 days. The patient states that she has a headache that encompasses the left side of her face and head and radiates to the neck. She includes 7 days ago I woke up with a headache and 6 days ago I had a really stiff neck and ever since then my headache has been getting worse. I went to Urgent care 5 days ago, and 3 days ago I was in the ER and given Toradol and other medications and received a spinal tap. The day I had a spinal tap I had a low grade fever. Additionally, when I open my eyes the aching intensifies. If the migraine goes away it inevitably comes back a few hours later. I have not had a menstrual period recently; I have been on continuous control for a while and recently got off it 7 days ago. 4 days ago I woke up at 0300 and was drenched in sweat; I had to take a shower. This has never happened to me before. The patients current temperature, per physician, is 99.8. Pt has not had fever or stiff neck since 09/03/17. The patient rates the pain 9/10 in severity. Symptoms aggravated by bending over, light, and sound. Symptoms alleviated by nothing. Patient reports cough, upper thoracic back pain. Patient denies visual sxs of wavy lines or scotoma, but does have photophobia. Denies focal weakness. Throughout the week the patient has tried to call her PCP , Dr. Moon without any success. Pt has had "migraine headaches" diagnosed by her PCP for at least 5 years. She has never seen a neurologist. She does not take preventative medications, and has never tried triptans. Review of the 2 previous ED records on 09/02/17 and 09/03/17 show that pt did have LP with 0 wbc's, 0 rbc's, normal CSF glu and protein, and no growth in CSF fluid. Pt also has no growth in blood cultures x 3 days. In those visits, pt was given benadryl, metoclopramide, magnesium, ketorolac, dexamethasone 10mg on 09/03/17 without full relief. Pt states the headache is the same headache as it was before the spinal tap, and feels like her typical migraine headache. - History Of Current Complaint Chief Complaint: EDHeadache Stated Complaint: HEADACHE Time Seen by Provider: 09/05/17 13:10 Hx Obtained From: Patient, Family/Senior Loan Processor - mother and nephew, Medical Records - [facility] ED 09/02/17, and 09/03/17 Hx Last Menstrual Period: months ago,but just stopped control 1 week ago ( 08/28/17) and no menses Onset/Duration: Gradual Onset, Started weeks ago - 6 days ago, Still Present Initially Headache Was: Initial Pain Scale(0-10)= - 9 Currently Pain Is: Current Pain Scale(0-10)= - "8.5" Timing: Constant Character: Migraine Location of Headache: Other: - left hemicranial Radiates to: left neck Aggravating Factor: Position Change - bending over, Bright Lights, Other - sound Allevating Factors: Nothing Associated Signs And Symptoms: Nausea, Neck Pain, Neck Stiffness, Other (Noted In Comments) - cough, upper thoracic back pain, neck stiffness - Allergies/Home Medications Allergies/Adverse Reactions: Allergies Allergy/AdvReac Type Severity Reaction Status Date / Time latex Allergy Rash Verified 09/05/17 10:39 PMH/Surg Hx/FS Hx/Imm Hx Previously Healthy: No Endocrine/Hematology History: Reports: Hx Anemia Denies: Hx Anticoagulant Therapy, Hx Blood Disorders, Hx Blood Transfusions, Hx Bone Marrow Disease, Hx Diabetes, Hx Systemic Lupus Erythematosus, Hx Sickle Cell Disease, Hx Thyroid Disease, Hx Unexplained Bleeding Cardiovascular History: Reports: Other Cardiovascular Problems/Disorders - Tachy -admitted to [facility] on 08/30/13 Denies: Hx Aneurysm, Hx Angina, Hx Angioplasty, Hx Auto Implanted Cardiovert Defib, Hx Cardiac Arrest, Hx Cardiomegaly, Hx Congenital Heart Disease, Hx Congestive Heart Failure, Hx Coronary Artery Disease, Hx Deep Vein Thrombosis, Hx Embolism, Hx Hypercholesterolemia, Hx Hypotension, Hx Hypertension, Hx Pacemaker/ICD, Hx Peripheral Vascular Disease, Hx Rheumatic Fever, Hx Syncope, Hx Valvular Heart Disease Respiratory History: Reports: Hx Seasonal Allergies Denies: Hx Asthma, Hx Chronic Bronchitis, Hx Chronic Obstructive Pulmonary Disease (COPD), Hx Cystic Fibrosis, Hx Lung Cancer, Hx Pleural Effusion, Hx Pneumonia, Hx Pulmonary Edema, Hx Pulmonary Embolism, Hx Sleep Apnea GI History: Reports: Other GI Disorders - hx of pancreatitis, ulcerative colitis Denies: Hx Cirrhosis, Hx Crohn's Disease, Hx Diverticulosis, Hx Gall Bladder Disease, Hx Gastroesophageal Reflux Disease, Hx Gastrointestinal Bleed, Hx Hiatal Hernia, Hx Jaundice, Hx Obstructive Bowel, Hx Ileostomy, Hx Pyloric Stenosis, Hx Ulcer Sensory History: Reports: Hx Contacts or Glasses Denies: Hx Cataracts, Hx Eye Injury, Hx Eye Prosthesis, Hx Glaucoma, Hx Legally Blind, Hx Macular Degeneration, Hx Vision Problem, Hx Deafness, Hx Hearing Aid, Hx Hearing Problem, Other Sensory Impairments Opthamlomology History: Reports: Hx Contacts or Glasses Denies: Hx Cataracts, Hx Eye Injury, Hx Eye Prosthesis, Hx Glaucoma, Hx Legally Blind, Hx Macular Degeneration, Hx Vision Problem, Other Sensory Impairments Neurological History: Reports: Hx Headaches - after remicade infusions, Hx Migraine Denies: Hx Dementia, Hx Developmental Delay, Hx Nerve Disease, Hx Seizures, Hx Spinal Cord Injury, Hx Transient Ischemic Attacks (TIA) Psychiatric History: Denies: Hx Panic Disorder - Surgical History Surgery Procedure, Year, and Place: Hammer toe corrections, tear duct, cyst removed from left wrist, tonsillectomy Hx Anesthesia Reactions: No - Immunization History Date of Tetanus Vaccine: within 10 years Date of Influenza Vaccine: none Infectious Disease History: No Infectious Disease History: Denies: Hx Clostridium Difficile, Hx Hepatitis, Hx Human Immunodeficiency Virus (HIV), Hx of Known/Suspected MRSA, Hx Shingles, Hx Tuberculosis, Hx Known/ Suspected VRE, Hx Known/Suspected VRSA, History Other Infectious Disease, Traveled Outside the [place] in Last 30 Days - Family History Known Family History: Positive: Diabetes, Other - migraines Negative: Renal Disease, Respiratory Disease, Seizure Disorder - Social History Alcohol Use: Rare Alcohol Amount: last Hx Substance Use: No Substance Use Type: Reports: None Substance Use Comment - Amount & Last Used: rarely Hx Tobacco Use: No Smoking Status (MU): Never Smoked Tobacco Review of Systems Constitutional: Negative - no fever since 09/03/17 Positive: Photophobia ENT: Negative Cardiovascular: Negative Positive: Cough Gastrointestinal: Negative Positive: Other - Upper thoracic back pain, neck stiffness Skin: Negative Positive: Headache - left sided Psychological: Normal All Other Systems Reviewed And Are Negative: Yes Physical Exam - Summary Physical Exam Summary: Appearance: Ill-appearing, moderate to severe pain distress, Well-nourished, photophobic, afebrile Skin: Warm, color reflects adequate perfusion Head: Normal Head/Face inspection, atraumatic Eyes: Conjunctiva clear, PERRL, EOMI ENT: Normal inspection, Pharynx clear, TM's clear Neck: Supple, no nodes, no JVD., no meningismus, no spinal tenderness Respiratory: Lungs clear, Normal breath sounds, no respiratory distress Cardio: RRR, No murmur, pulses normal, brisk capillary refill Abdomen: soft, nontender Bowel sounds: present Musculoskeletal: Strength Intact/ ROM intact. No calf tenderness. No edema. The site of the LP right low lumbar is nontender, not red, not swollen. No spinal tenderness Psychological: Normal Neuro Exam:A&O x3, CN II-XII intact, Motor function 5/5, Sensation intact, non focal, indicates headache is left hemicranial Triage Information Reviewed: Yes Vital Signs On Initial Exam: Initial Vitals Temp Pulse Resp BP Pulse Ox 97.9 F 89 15 127/86 97 09/05/17 10:40 09/05/17 10:40 09/05/17 10:40 09/05/17 10:40 09/05/17 10:40 Vital Signs Reviewed: Yes Diagnostics - Vital Signs Vital Signs Temp Pulse Resp BP Pulse Ox 09/05/17 10:40 97.9 F 89 15 127/86 97 - Laboratory Lab Results: Lab Results 09/05/17 09/05/17 09/05/17 Range/Units 13:16 13:16 13:16 WBC 6.7 (3.5-10.8) 10^3/ul RBC 3.53 L (4.0-5.4) 10^6/ul Hgb 11.6 L (12.0-16.0) g/dl Hct 33 L (35-47) % MCV 93 (80-97) fL MCH 33 H (27-31) pg MCHC 36 (31-36) g/dl RDW 12 (10.5-15) % Plt Count 270 (150-450) 10^3/ul MPV 8 (7.4-10.4) um3 Neut % (Auto) 48.8 (38-83) % Lymph % (Auto) 43.5 (25-47) % Hendry % (Auto) 6.3 (0-7) % Eos % (Auto) 0.8 (0-6) % Baso % (Auto) 0.6 (0-2) % Absolute Neuts (auto) 3.3 (1.5-7.7) 10^3/ul Absolute Lymphs (auto) 2.9 (1.0-4.8) 10^3/ul Absolute Monos (auto) 0.4 (0-0.8) 10^3/ul Absolute Eos (auto) 0.1 (0-0.6) 10^3/ul Absolute Basos (auto) 0 (0-0.2) 10^3/ul Absolute Nucleated RBC 0 10^3/ul Nucleated RBC % 0.1 ESR Pending Carbon Monoxide Screen < 4 (<4.0) % Sodium 138 (133-145) mmol/L Potassium 4.0 (3.5-5.0) mmol/L Chloride 106 (101-111) mmol/L Carbon Dioxide 23 (22-32) mmol/L Anion Gap 9 (2-11) mmol/L BUN 14 (6-24) mg/dL Creatinine 0.74 (0.51-0.95) mg/dL Est GFR ( Amer) 120.2 (>60) Est GFR (Non-Af Amer) 93.5 (>60) BUN/Creatinine Ratio 18.9 (8-20) Glucose 89 (70-100) mg/dL Calcium 9.2 (8.6-10.3) mg/dL Total Bilirubin 0.20 (0.2-1.0) mg/dL AST 13 (13-39) U/L ALT 10 (7-52) U/L Alkaline Phosphatase 39 (34-104) U/L Total Protein 6.8 (6.4-8.9) g/dL Albumin 4.0 (3.2-5.2) g/dL Globulin 2.8 (2-4) g/dL Albumin/Globulin Ratio 1.4 (1-3) Result Diagrams: 18 13:16 18 13:16 Lab Statement: Any lab studies that have been ordered have been reviewed, and results considered in the medical decision making process. Re-Evaluation - Re-Evaluation First Eval Re-Evaluation Time: 16:10 Change: Unchanged Comment: Patient's headache is worse when she sits forward. Dr. Nunez will be consulting Dr. Macedo (Anesthesiology) and Dr. Rogers (Neurology). Second Eval Re-Evaluation Time: 17:25 Change: Unchanged Comment: Pt still has a headache despite compazine 5mg IV and ketorolac per Dr. Rogers, and will be given sumatriptan 6mg subcut, dexamethasone 6mg and magnesium [address] Macedo is seeing her from anesthesia to eval for possible blood patch, post LP. Third Eval Re-Evaluation Time: 18:00 Change: Improved Comment: Pt condition is improved. Discussed results with patient. Advised that she may return for blood patch if headache returns and she feels it necessary. Also advised she will be given sumatriptan as RX to take for possible future migraine until she can be evaluated by neurology as an outpt, but that she should not take any more sumatriptan this week. Patient will be discharged. Patient is agreeable with this plan Headache Course/Dx - Course Course Of Treatment: In the ED course the patient was given IV fluids. Rapid Influenza A and B test results are negative. At 16:[address] Macedo to discuss the patient's condition; he will be evaluating the patient for possible blood patch post LP done 09/02/17. At [address] Rogers, who believes her condition is refractory migraine related to the stopping of her control, however believes that post spinal tap headache could be a factor and agrees with consulting anesthesia. He initially recommeded compazine 5mg IV (after she had had metoclopramide 10mg IV) and ketorolac, and additionally now recommends Dexamethasone 6mg IV, Sumatriptan 6 mg subQ, and magnesium sulfate 1 Gm IV. Assessment/Plan: Pt ultimately got pain control with continued treatment for migraine. She is discharged with advice to follow up with anesthesia if needed for blood patch post LP, and to follow up with Dr. Moon, and to be seen as a new pt with neurology for migraine evaluation. - Diagnoses Differential Diagnosis/HQI/PQRI: CO2 Poisoning, Meningitis, Migraine, Other - post spinal tap headache Provider Diagnoses: Refractory migraine without aura - Physician Notifications Discussed Care Of Patient With: Titi Rogers Time Discussed With Above Provider: 14:28 Instructed by Provider To: Other - recommended 5 mg of Compazine, IV push, and 15 mg of Toradol, later dexamethasone, sumatriptan, magnesium. Also consulted Dr. Macedo, anesthesia, who wrote consult note on pt and put copy of the consult in anesthesia office. Discharge - Discharge Plan Condition: Stable Disposition: HOME Prescriptions: SUMAtriptan TAB* [Imitrex TAB*] 100 mg PO SEE INSTRUCTIONS PRN #4 tab PRN Reason: Migraine Headache Patient Education Materials: Migraine Headache (ED) Referrals: Titi Rogers MD [Medical Doctor] - As Soon As Possible Christine Moon MD [Primary Care Provider] - 2 Days Garrison Macedo MD [Medical Doctor] - If Needed Additional Instructions: In the ER you were given benadryl 50mg IV, compazine 5mg IV, dexamethasone 6mg IV, sumatriptan 6mg subcutaneously, magnesium 1 gm IV, metoclopramide 10mg IV, ketorolac 15mg IV. You were evaluated by Dr. Rogers from neurology who thought you had a refractory migraine, but that it could also be related to you spinal tap on 09/03/17. You were evaluated by Dr. Macedo from anesthesia who stated he did not feel you needed a blood patch yet, but that if the headache worsened and you wanted to be re-evaluated for the blood patch, please contact the anesthesia doctor construction estimator. You may try reaching the anesthesia doctor construction estimator by calling [phone], or by calling the main burn table operator of the hospital at [phone]. If you cannot reach the anesthesia doctor and feel you might need the blood patch, please return to the ER and show them these notes. Your flu swab was negative. We have prescribed sumatriptan 100mg that you may try if you headache returns, but you should not take this more than twice in one week. Have definite follow up with Dr. Moon. RETURN TO THE EMERGENCY DEPARTMENT FOR CHANGING OR WORSENING SYMPTOMS. The documentation as recorded by the Rafael walters Jason accurately reflects the service I personally performed and the decisions made by me, Nadia Nunez MD.
[2017-09-05 19:48] VITALS: BP 116/75
--- NOTE | 2017-09-05 22:23 | CONS ---
NEUROLOGY CONSULTATION: DATE OF CONSULT: 09/05/17 LOCATION: She is in the emergency room. REFERRING PHYSICIAN: Dr. Nunez. CHIEF COMPLAINT: Headache. HISTORY OF PRESENT ILLNESS: Estephania Walker is a 26-year-old woman with a history of migraines for quite a few years. Typically, she would get them once a month or less. She will take Excedrin Migraine and that would usually work. She was on daily oral contraceptives for years. She was on a former dose, no break. About 2 days before the headache started, she stopped it. She developed a bad headache 2 days later and ended up in the emergency room on 09/02/17. She had a normal CBC and white blood cell count at that point in time. She had a severe hemicranial headache on the left side with photophobia and nausea and with some vomiting. She had a CT of the brain, which is interpreted as normal. She had a lumbar puncture on 09/02/17 notable for 0 WBCs, 0 red bleed cells, normal glucose and protein. She was given ketorolac, dexamethasone, Compazine, and steroids. She had some improvement and went home. The next day, the headache was back. She presented again to the hospital today. The headache is still left hemicranial associated with photophobia, nausea, and vomiting. She was prescribed butalbital compound as well as sertraline for anxiety, but has not started either one of them yet. Her headache is severe of standing and a little bit better if she lies very still, but it is still severe lying still. There is a strong family history of migraines. PAST MEDICAL HISTORY: Generally good health. MEDICATIONS: The only medication she takes on a regular basis is Excedrin periodically. She was given a prescription for escitalopram and butalbital compound, but she has not filled it yet. She stopped her ethinyl estradiol about 2 days before her headache started. ALLERGIES: She is allergic to LATEX, but no medications. PHYSICAL EXAMINATION: She is photophobic, but looks well hydrated and well nourished. Blood pressure is running about 110/70, temperature 97.9, heart rate in the 80s and regular, respiratory rate is 15, and oxygen saturation is 97 % on room air. Skin is warm and dry. Neck is supple with some neck discomfort , but no rigidity. Straight leg raising is negative bilaterally. Oral mucosa is moist and atraumatic. Neurological Exam: Pupils react equally from 4 to 2.5 mm in dim room light. Funduscopic exam with a blue light reveals sharp disks bilaterally. Eye movements are normal and nonpainful. Visual maravilla are full to confrontation in all 4 quadrants. Facial musculature is symmetric and facial sensation to light touch is intact and symmetric. Palate and tongue appear normal and there is no dysarthria. Motor exam reveals normal tone and strength in the limbs proximally and distally. There is no drift of any other limbs. Reflexes are brisk and symmetric in upper and lower extremities and plantar responses are flexor. There is no rest tremor. Sensation to vibration and light touch is normal in the limbs. She is alert and oriented and an excellent detailed historian. Memory is intact and language is fluent. She has normal attention, concentration, and fund of knowledge. LABORATORY DATA: Includes spinal fluid as mentioned above. CBC on 09/05/17 is within normal limits other than a hemoglobin of 11.6. Chemistry profile today is unremarkable. Liver enzymes also normal. CRP today is 2.93. IMAGING: Brain CT is reviewed and is interpreted as normal. I reviewed the images and I agreed. She also had normal brain CTs for indication of headache in 2016 and 2017. IMPRESSION AND PLAN: Impression is that of status migrainosus probably from stopping her daily hormonal medication, which she has been on for years. There may be a component of postlumbar puncture headache as well at this point. I would recommend retreating with the dexamethasone, magnesium sulfate, and trial of sumatriptan injectable. She has had Compazine and Reglan earlier today as well as ketorolac. If that does not work, then I would recommend consideration of blood patch for a possible postlumbar puncture headache component to her headache syndrome. I would be happy to see her in followup in my office for longer term management of her headaches as well. [id number]/[facility] #: [id number] [facility]
== END 2017-09-05 19:52 | disposition home or self-care (01) ==
LOC: ED 10:32
DX: G43.019 Migraine without aura, intractable, without status migrainosus (principal)
CPT/HCPCS: 36415; 80053; 80307; 82375; 82668; 83735; 84702; 85025; 85652; 86140; 87502; 96360; 96372; 96374; 96375; 99284; J0780; J1100; J1200; J1885; J2765; J3030; J3475

== ENCOUNTER 2017-09-06 08:41 | Emergency (ER) | payer OTHER ==
[2017-09-06] MEDS ORDERED: Ketorolac INJ* 30 MG/ML 1 ML VIAL IV ONE (09:23)
[2017-09-06] MEDS ORDERED: Ondansetron INJ* 2 MG/ML VIAL IV ONE (09:23)
[2017-09-06] MEDS ORDERED: diPHENhydraMINE IV* 50 MG/ML 1 ml VIAL (BENADRYL) IV ONE (09:23)
[2017-09-06 09:57] LABS: ABS Basophils 0 10^3/ul (0-0.2); ABS Eosinophils 0 10^3/ul (0-0.6); ABS Lymphocytes 3.6 10^3/ul (1.0-4.8); ABS Monocytes 0.6 10^3/ul (0-0.8); ABS Neutrophils 4.5 10^3/ul (1.5-7.7); ABS Nucleated RBC 0 10^3/ul; Eosinophil % 0.2 % (0-6); Hematocrit 33 % (35-47); Hemoglobin 11.5 g/dl (12.0-16.0); Lymphocyte % 41.2 % (25-47); Mean Corpuscular HGB Conc 35 g/dl (31-36); Mean Corpuscular Hemoglobin 33 pg (27-31); Mean Corpuscular Volume 92 fL (80-97); Mean Platelet Volume 8 um3 (7.4-10.4); Nucleated Red Blood Cells % 0; Platelet Count 270 10^3/ul (150-450); Red Blood Count 3.53 10^6/ul (4.0-5.4); Red Cell Distribution Width 13 % (10.5-15); White Blood Count 8.8 10^3/ul (3.5-10.8)
[2017-09-06 10:07] LABS: INR 0.91 (0.77-1.02)
[2017-09-06] MEDS: NS 0.9% 1000 ML* 2,000 ML IV ONE (10:10)
[2017-09-06 10:14] LABS: EGFR Non-African American 89.3 (>60)
[2017-09-06] MEDS ORDERED: Magnesium Sulfate 1 GM IV* 1 GM/100 ML BAG IV ONE (11:03)
[2017-09-06] MEDS ORDERED: Metoclopramide IV* 5 MG/ML 2 ML VIAL IV SLOW PU ONE (11:04)
[2017-09-06] MEDS ORDERED: Dexamethasone IV* 4 MG/ML 1 ML (4 MG) IV SLOW PU ONE (11:04)
[2017-09-06] MEDS ORDERED: Morphine INJ* 4 MG/ML 1 ML SYRINGE (NEW SYRINGE VERSION) IV ONE (11:04)
[2017-09-06 13:58] VITALS: BP 111/77
--- NOTE | 2017-09-06 17:29 | ED ---
Joshua Luna Tiffany, scribed for Janusz Singh MD on 09/06/17 at 0924 . Headache - HPI Summary HPI Summary: The patient is a 26 year old F presenting to [facility] c/o headache that began 6 days ago. Describes the headache on the left side of her head that goes to the back of her head and down her neck. The patient rates the pain 8/10 in severity. Symptoms aggravated by standing up, light and sound. Symptoms alleviated by lying down. Symptoms began one day after patient stopped taking her control. Has treated the headache with Butalbital without relief. Reports dizziness, back pain with cough, nausea, vomiting. Denies weakness, numbness, vision changes and speech changes. Patient was seen here yesterday for same complaint. Neurology consultation advised patient to return to ED for blood patch if symptoms not relieved. - History Of Current Complaint Chief Complaint: EDHeadache Stated Complaint: MIGRAINE, NECK PAIN Time Seen by Provider: 09/06/17 09:02 Hx Obtained From: Patient Hx Last Menstrual Period: months ago,but just stopped control 1 week ago ( 08/28/17) and no menses Onset/Duration: Started days ago - 6 days escobedo, Still Present Currently Pain Is: Severe - Rated 8/10 Timing: Constant Location of Headache: Other: - left side of her head that goes to the back of her head and down her neck Aggravating Factor: Position Change, Bright Lights, Other - Sound Allevating Factors: Other (Noted In Comments) - Lying down Associated Signs And Symptoms: Other (Noted In Comments) - dizziness, back pain with cough, nausea, vomiting; NEGATIVE: weakness, numbness, vision changes and speech changes. - Allergies/Home Medications Allergies/Adverse Reactions: Allergies Allergy/AdvReac Type Severity Reaction Status Date / Time latex Allergy Rash Verified 09/06/17 09:16 PMH/Surg Hx/FS Hx/Imm Hx Previously Healthy: No Endocrine/Hematology History: Reports: Hx Anemia Denies: Hx Anticoagulant Therapy, Hx Blood Disorders, Hx Blood Transfusions, Hx Bone Marrow Disease, Hx Diabetes, Hx Systemic Lupus Erythematosus, Hx Sickle Cell Disease, Hx Thyroid Disease, Hx Unexplained Bleeding Cardiovascular History: Reports: Other Cardiovascular Problems/Disorders - Tachy -admitted to tele on 08/30/13 Denies: Hx Aneurysm, Hx Angina, Hx Angioplasty, Hx Auto Implanted Cardiovert Defib, Hx Cardiac Arrest, Hx Cardiomegaly, Hx Congenital Heart Disease, Hx Congestive Heart Failure, Hx Coronary Artery Disease, Hx Deep Vein Thrombosis, Hx Embolism, Hx Hypercholesterolemia, Hx Hypotension, Hx Hypertension, Hx Pacemaker/ICD, Hx Peripheral Vascular Disease, Hx Rheumatic Fever, Hx Syncope, Hx Valvular Heart Disease Respiratory History: Reports: Hx Seasonal Allergies Denies: Hx Asthma, Hx Chronic Bronchitis, Hx Chronic Obstructive Pulmonary Disease (COPD), Hx Cystic Fibrosis, Hx Lung Cancer, Hx Pleural Effusion, Hx Pneumonia, Hx Pulmonary Edema, Hx Pulmonary Embolism, Hx Sleep Apnea GI History: Reports: Hx Irritable Bowel, Other GI Disorders - hx of pancreatitis, ulcerative colitis Denies: Hx Cirrhosis, Hx Crohn's Disease, Hx Diverticulosis, Hx Gall Bladder Disease, Hx Gastroesophageal Reflux Disease, Hx Gastrointestinal Bleed, Hx Hiatal Hernia, Hx Jaundice, Hx Obstructive Bowel, Hx Ileostomy, Hx Pyloric Stenosis, Hx Ulcer Sensory History: Reports: Hx Contacts or Glasses Denies: Hx Cataracts, Hx Eye Injury, Hx Eye Prosthesis, Hx Glaucoma, Hx Legally Blind, Hx Macular Degeneration, Hx Vision Problem, Hx Deafness, Hx Hearing Aid, Hx Hearing Problem, Other Sensory Impairments Opthamlomology History: Reports: Hx Contacts or Glasses Denies: Hx Cataracts, Hx Eye Injury, Hx Eye Prosthesis, Hx Glaucoma, Hx Legally Blind, Hx Macular Degeneration, Hx Vision Problem, Other Sensory Impairments Neurological History: Reports: Hx Headaches - after remicade infusions, Hx Migraine Denies: Hx Dementia, Hx Developmental Delay, Hx Nerve Disease, Hx Seizures, Hx Spinal Cord Injury, Hx Transient Ischemic Attacks (TIA) Psychiatric History: Denies: Hx Panic Disorder - Surgical History Surgery Procedure, Year, and Place: Hammer toe corrections, tear duct, cyst removed from left wrist, tonsillectomy Hx Anesthesia Reactions: No - Immunization History Date of Tetanus Vaccine: within 10 years Date of Influenza Vaccine: none Infectious Disease History: No Infectious Disease History: Denies: Hx Clostridium Difficile, Hx Hepatitis, Hx Human Immunodeficiency Virus (HIV), Hx of Known/Suspected MRSA, Hx Shingles, Hx Tuberculosis, Hx Known/ Suspected VRE, Hx Known/Suspected VRSA, History Other Infectious Disease, Traveled Outside the [place] in Last 30 Days - Family History Known Family History: Positive: Diabetes, Other - migraines Negative: Renal Disease, Respiratory Disease, Seizure Disorder - Social History Alcohol Use: Occasionally Alcohol Amount: None since 2016 Hx Substance Use: Yes Substance Use Type: Reports: Marijuana Substance Use Comment - Amount & Last Used: Occassional use Hx Tobacco Use: No Smoking Status (MU): Never Smoked Tobacco Review of Systems Negative: Blurred Vision Positive: Vomiting, Nausea Positive: Other - Back pain with cough Neurological: Other - Dizziness Positive: Headache. Negative: Weakness, Numbness, Slurred Speech All Other Systems Reviewed And Are Negative: Yes Physical Exam - Summary Physical Exam Summary: General: well-appearing, no pain distress Skin: warm, color reflects adequate perfusion, dry Head: normal Eyes: EOMI, [place] ENT: oral mucosa dry Neck: supple, nontender Respiratory: CTA, breath sounds present Cardiovascular: RRR Abdomen: soft, nontender Bowel: present Musculoskeletal: normal, strength/ROM intact Neurological: normal, sensory/motor intact, A&O x3 Psychological: affect/mood appropriate Triage Information Reviewed: Yes Vital Signs On Initial Exam: Initial Vitals Temp Pulse Resp BP Pulse Ox 98.5 F 73 14 124/91 100 09/06/17 08:45 09/06/17 08:45 09/06/17 08:45 09/06/17 08:45 09/06/17 08:45 Vital Signs Reviewed: Yes Diagnostics - Vital Signs Vital Signs Temp Pulse Resp BP Pulse Ox 09/06/17 09:09 61 98 09/06/17 09:08 130/88 09/06/17 08:45 98.5 F 73 14 124/91 100 - Laboratory Lab Results: Lab Results 09/06/17 09/06/17 09/06/17 Range/Units 09:42 09:42 09:42 WBC 8.8 (3.5-10.8) 10^3/ul RBC 3.53 L (4.0-5.4) 10^6/ul Hgb 11.5 L (12.0-16.0) g/dl Hct 33 L (35-47) % MCV 92 (80-97) fL MCH 33 H (27-31) pg MCHC 35 (31-36) g/dl RDW 13 (10.5-15) % Plt Count 270 (150-450) 10^3/ul MPV 8 (7.4-10.4) um3 Neut % (Auto) 51.4 (38-83) % Lymph % (Auto) 41.2 (25-47) % [place] % (Auto) 6.9 (0-7) % Eos % (Auto) 0.2 (0-6) % Baso % (Auto) 0.3 (0-2) % Absolute Neuts (auto) 4.5 (1.5-7.7) 10^3/ul Absolute Lymphs (auto) 3.6 (1.0-4.8) 10^3/ul Absolute Monos (auto) 0.6 (0-0.8) 10^3/ul Absolute Eos (auto) 0 (0-0.6) 10^3/ul Absolute Basos (auto) 0 (0-0.2) 10^3/ul Absolute Nucleated RBC 0 10^3/ul Nucleated RBC % 0 INR (Anticoag Therapy) 0.91 (0.77-1.02) APTT 27.7 (26.0-36.3) seconds Sodium 136 (133-145) mmol/L Potassium 3.9 (3.5-5.0) mmol/L Chloride 105 (101-111) mmol/L Carbon Dioxide 24 (22-32) mmol/L Anion Gap 7 (2-11) mmol/L BUN 11 (6-24) mg/dL Creatinine 0.77 (0.51-0.95) mg/dL Est GFR ( Amer) 114.8 (>60) Est GFR (Non-Af Amer) 89.3 (>60) BUN/Creatinine Ratio 14.3 (8-20) Glucose 84 (70-100) mg/dL Calcium 9.2 (8.6-10.3) mg/dL Total Bilirubin 0.30 (0.2-1.0) mg/dL AST 12 L (13-39) U/L ALT 10 (7-52) U/L Alkaline Phosphatase 41 (34-104) U/L C-Reactive Protein 2.28 (< 5.00) mg/L Total Protein 6.8 (6.4-8.9) g/dL Albumin 4.0 (3.2-5.2) g/dL Globulin 2.8 (2-4) g/dL Albumin/Globulin Ratio 1.4 (1-3) Beta HCG, Quant < 0.60 mIU/mL Result Diagrams: 09/06/17 09:42 09/06/17 09:42 Lab Statement: Any lab studies that have been ordered have been reviewed, and results considered in the medical decision making process. Re-Evaluation - Re-Evaluation Second Eval Re-Evaluation Time: 13:35 Change: Improved Comment: Patient is back from procedure. Says she feels better. Would like to go home. Will follow up from her neurologist. First Eval Re-Evaluation Time: 10:52 Change: Unchanged Comment: Patient says she would like to get blood patch Headache Course/Dx - Course Course Of Treatment: BP noted and advised to follow up with PCP. Medications reviewed. Allergies noted. BLOOD PATCH DONE BY DR COELLO, ANESTHESIA. PATIENT FEELS IMPROVED. F/U PMD/NEURO. - Diagnoses Provider Diagnoses: Migraine headache, Lumbar puncture headache - Physician Notifications Discussed Care Of Patient With: Adam Coello Time Discussed With Above Provider: 10:56 Instructed by Provider To: Other - Dr. Coello (anesthesiology) agrees to perform blood ptach. Discharge - Discharge Plan Condition: Stable Disposition: HOME Patient Education Materials: Migraine Headache (ED), Epidural Blood Patch (DC) Referrals: Christine Moon MD [Primary Care Provider] - Additional Instructions: FOLLOW UP WITH YOUR PRIMARY CARE DOCTOR AND NEUROLOGY, DR APARICIO, [phone]. RETURN TO THE EMERGENCY DEPARTMENT FOR ANY WORSENING OF YOUR CONDITION OR QUESTIONS OR CONCERNS. The documentation as recorded by the Joshua walters Tiffany accurately reflects the service I personally performed and the decisions made by me, Janusz Singh MD.
== END 2017-09-06 13:58 | disposition home or self-care (01) ==
LOC: ED 08:41
DX: G43.909 Migraine, unspecified, not intractable, without status migrainosus (principal); G97.1 Other reaction to spinal and lumbar puncture
CPT/HCPCS: 36415; 80053; 84702; 85025; 85610; 85730; 86140; 96361; 96374; 96375; 99283; J1100; J1200; J1885; J2270; J2405; J2765; J3475

== ENCOUNTER 2017-10-20 14:45 | Emergency (ER) | payer OTHER ==
[2017-10-20 15:38] LABS: Urine Appearance Cloudy; Urine Blood Negative (Negative); Urine Color Yellow; Urine Ketones Trace (Negative); Urine Protein Negative (Negative); Urine Specific Gravity 1.031 (1.010-1.030); Urine Urobilinogen Negative (Negative)
[2017-10-20 15:59] LABS: ABS Basophils 0 10^3/ul (0-0.2); ABS Eosinophils 0 10^3/ul (0-0.6); ABS Lymphocytes 2.5 10^3/ul (1.0-4.8); ABS Monocytes 0.7 10^3/ul (0-0.8); ABS Neutrophils 6.4 10^3/ul (1.5-7.7); ABS Nucleated RBC 0 10^3/ul; Eosinophil % 0.3 % (0-6); Hematocrit 35 % (35-47); Hemoglobin 12.4 g/dl (12.0-16.0); Lymphocyte % 26.2 % (25-47); Mean Corpuscular HGB Conc 36 g/dl (31-36); Mean Corpuscular Hemoglobin 33 pg (27-31); Mean Corpuscular Volume 93 fL (80-97); Mean Platelet Volume 7.9 um3 (7.4-10.4); Nucleated Red Blood Cells % 0; Platelet Count 313 10^3/ul (150-450); Red Blood Count 3.73 10^6/ul (4.0-5.4); Red Cell Distribution Width 13 % (10.5-15); White Blood Count 9.7 10^3/ul (3.5-10.8)
[2017-10-20 16:17] LABS: EGFR Non-African American 101.3 (>60)
--- NOTE | 2017-10-20 17:19 | RAD ---
HISTORY: Left lower quadrant pain, positive test COMPARISONS: None relevant TECHNIQUE: Multiple transverse and longitudinal ultrasound images were obtained of the pelvis using grayscale, color Doppler, spectral Doppler imaging and M-Mode Doppler imaging using the endovaginal transducer. FINDINGS: UTERUS: The uterus is normal in shape, size, contour, and echotexture. GESTATION: There is a single live intrauterine gestation. The crown-rump length measures 0.7 cm for a gestational age of 6 weeks, 5 days. The JARED is June 09, 2018 based on the crown-rump length.. cardiac motion is detected at a rate of 128 beats per minute. Gross movement is identified. anatomy cannot be assessed secondary to early dates. The amniotic fluid is qualitatively normal. There are 2 small subchorionic hemorrhages measuring between 1.1 and 1.4 cm in maximum dimension. CUL-DE-SAC: There is no free fluid within the cul-de-sac. RIGHT OVARY: The right ovary measures 2.6 x 1.2 x 1.6 cm. Normal arterial and venous waveforms are identifiable within the ovary on spectral Doppler imaging. LEFT OVARY: The left ovary measures 2.4 x 2.7 x 1.8 cm. A corpus luteum is noted. Normal arterial and venous waveforms are identifiable within the ovary on spectral Doppler imaging. BLADDER: The bladder is not well visualized. IMPRESSION: 1. SINGLE LIVE INTRAUTERINE GESTATION AT 6 WEEKS, 5 DAYS BY CROWN-RUMP LENGTH. 2. THERE ARE 2 SMALL SUBCHORIONIC HEMORRHAGES.
[2017-10-20] MEDS ORDERED: NS 0.9% 1000 ML* 1,000 ML IV ONE (18:06)
[2017-10-20] MEDS ORDERED: Ondansetron INJ* 2 MG/ML VIAL IV ONE (18:35)
[2017-10-20] MEDS ORDERED: Acetaminophen TAB* 325 MG PO ONE (18:36)
--- NOTE | 2017-10-20 19:22 | ED ---
Casie Luna Emily, scribed for Janusz Singh MD on 10/20/17 at 1758 . Abdominal Pain/Female - HPI Summary HPI Summary: This patient is a 26 year old F referred to [facility] by her OBGYN with a chief complaint of waxing and waning LLQ that began this morning upon her waking up. Pt reports finding out she is about 2 days ago. The patient rates the pain 6/10 in severity. Pt reports the pain being much more severe at 1000 this morning. Symptoms aggravated by nothing. Symptoms alleviated by Tylenol. Patient reports nausea, fever (100.4) and elevated HR (in the 140s). Patient denies vaginal discharge, vaginal bleeding, and urinary symptoms. Pt reports pain feeling like menstrual cramps times ten. Pt reports last menstruation occurring about 2 years ago. Pt is . - History of Current Complaint Chief Complaint: EDAbdPain Stated Complaint: OB PROBLEM-OB DR SENT Time Seen by Provider: 10/20/17 17:48 Hx Obtained From: Patient Hx Last Menstrual Period: 2016 ?: Yes Onset/Duration: Sudden Onset, Lasting Hours, Still Present Timing: Constant Severity Initially: Moderate Severity Currently: Moderate Pain Intensity: 6 Pain Scale Used: 0-10 Numeric Location: Discrete At: LLQ Character: Cramping Aggravating Factor(s): Nothing Alleviating Factor(s): OTC Analgesics Associated Signs and Symptoms: Positive: Other: - Positive nausea, fever (100.4 ) and elevated HR (in the 140s). Negative vaginal discharge, vaginal bleeding, and urinary symptoms Allergies/Adverse Reactions: Allergies Allergy/AdvReac Type Severity Reaction Status Date / Time latex Allergy Rash Verified 10/20/17 15:06 Home Medications: Home Medications Acetaminophen TAB* [Tylenol TAB*] 325 mg PO Q4H PRN 10/20/17 [History Confirmed 10/20/17] PMH/Surg Hx/FS Hx/Imm Hx Previously Healthy: No Endocrine/Hematology History: Reports: Hx Anemia Denies: Hx Anticoagulant Therapy, Hx Blood Disorders, Hx Blood Transfusions, Hx Bone Marrow Disease, Hx Diabetes, Hx Systemic Lupus Erythematosus, Hx Sickle Cell Disease, Hx Thyroid Disease, Hx Unexplained Bleeding Cardiovascular History: Reports: Other Cardiovascular Problems/Disorders - Tachy -admitted to [facility] on 08/30/13 Denies: Hx Aneurysm, Hx Angina, Hx Angioplasty, Hx Auto Implanted Cardiovert Defib, Hx Cardiac Arrest, Hx Cardiomegaly, Hx Congenital Heart Disease, Hx Congestive Heart Failure, Hx Coronary Artery Disease, Hx Deep Vein Thrombosis, Hx Embolism, Hx Hypercholesterolemia, Hx Hypotension, Hx Hypertension, Hx Pacemaker/ICD, Hx Peripheral Vascular Disease, Hx Rheumatic Fever, Hx Syncope, Hx Valvular Heart Disease Respiratory History: Reports: Hx Seasonal Allergies Denies: Hx Asthma, Hx Chronic Bronchitis, Hx Chronic Obstructive Pulmonary Disease (COPD), Hx Cystic Fibrosis, Hx Lung Cancer, Hx Pleural Effusion, Hx Pneumonia, Hx Pulmonary Edema, Hx Pulmonary Embolism, Hx Sleep Apnea GI History: Reports: Hx Irritable Bowel, Other GI Disorders - hx of pancreatitis, ulcerative colitis Denies: Hx Cirrhosis, Hx Crohn's Disease, Hx Diverticulosis, Hx Gall Bladder Disease, Hx Gastroesophageal Reflux Disease, Hx Gastrointestinal Bleed, Hx Hiatal Hernia, Hx Jaundice, Hx Obstructive Bowel, Hx Ileostomy, Hx Pyloric Stenosis, Hx Ulcer Sensory History: Reports: Hx Contacts or Glasses Denies: Hx Cataracts, Hx Eye Injury, Hx Eye Prosthesis, Hx Glaucoma, Hx Legally Blind, Hx Macular Degeneration, Hx Vision Problem, Hx Deafness, Hx Hearing Aid, Hx Hearing Problem, Other Sensory Impairments Opthamlomology History: Reports: Hx Contacts or Glasses Denies: Hx Cataracts, Hx Eye Injury, Hx Eye Prosthesis, Hx Glaucoma, Hx Legally Blind, Hx Macular Degeneration, Hx Vision Problem, Other Sensory Impairments Neurological History: Reports: Hx Headaches - after remicade infusions, Hx Migraine Denies: Hx Dementia, Hx Developmental Delay, Hx Nerve Disease, Hx Seizures, Hx Spinal Cord Injury, Hx Transient Ischemic Attacks (TIA) Psychiatric History: Denies: Hx Panic Disorder - Surgical History Surgery Procedure, Year, and Place: Hammer toe corrections, tear duct, cyst removed from left wrist, tonsillectomy Hx Anesthesia Reactions: No - Immunization History Date of Tetanus Vaccine: within 10 years Date of Influenza Vaccine: none Infectious Disease History: No Infectious Disease History: Denies: Hx Clostridium Difficile, Hx Hepatitis, Hx Human Immunodeficiency Virus (HIV), Hx of Known/Suspected MRSA, Hx Shingles, Hx Tuberculosis, Hx Known/ Suspected VRE, Hx Known/Suspected VRSA, History Other Infectious Disease, Traveled Outside the [place] in Last 30 Days - Family History Known Family History: Positive: Diabetes, Other - migraines Negative: Renal Disease, Respiratory Disease, Seizure Disorder - Social History Occupation: Employed Full-time Lives: With Family Alcohol Use: Occasionally Alcohol Amount: None since 2016 Hx Substance Use: Yes Substance Use Type: Reports: Marijuana Substance Use Comment - Amount & Last Used: Occassional use Hx Tobacco Use: No Smoking Status (MU): Never Smoked Tobacco Review of Systems Positive: Fever Positive: Other - Positive elevated HR Positive: Nausea Genitourinary: Negative Positive: other - Negative vaginal bleeding. Negative: discharge All Other Systems Reviewed And Are Negative: Yes Physical Exam - Summary Physical Exam Summary: General: well-appearing, no pain distress Skin: warm, color reflects adequate perfusion, dry Head: normal Eyes: EOMI, [place] ENT: normal Neck: supple, nontender Respiratory: CTA, breath sounds present Cardiovascular: RRR Abdomen: soft, mild LLQ tenderness Bowel: present Musculoskeletal: normal, strength/ROM intact Neurological: normal, sensory/motor intact, A&O x3 Psychological: affect/mood appropriate Triage Information Reviewed: Yes Vital Signs On Initial Exam: Initial Vitals Temp Pulse Resp BP Pulse Ox 98.9 F 86 16 119/73 100 10/20/17 15:01 10/20/17 15:01 10/20/17 15:01 10/20/17 15:01 10/20/17 15:01 Vital Signs Reviewed: Yes Diagnostics - Vital Signs Vital Signs Temp Pulse Resp BP Pulse Ox 10/20/17 15:01 98.9 F 86 16 119/73 100 - Laboratory Lab Results: Lab Results 10/20/17 10/20/17 10/20/17 Range/Units 15:30 15:45 15:45 WBC 9.7 (3.5-10.8) 10^3/ul RBC 3.73 L (4.0-5.4) 10^6/ul Hgb 12.4 (12.0-16.0) g/dl Hct 35 (35-47) % MCV 93 (80-97) fL MCH 33 H (27-31) pg MCHC 36 (31-36) g/dl RDW 13 (10.5-15) % Plt Count 313 (150-450) 10^3/ul MPV 7.9 (7.4-10.4) um3 Neut % (Auto) 66.1 (38-83) % Lymph % (Auto) 26.2 (25-47) % [place] % (Auto) 7.1 H (0-7) % Eos % (Auto) 0.3 (0-6) % Baso % (Auto) 0.3 (0-2) % Absolute Neuts (auto) 6.4 (1.5-7.7) 10^3/ul Absolute Lymphs (auto) 2.5 (1.0-4.8) 10^3/ul Absolute Monos (auto) 0.7 (0-0.8) 10^3/ul Absolute Eos (auto) 0 (0-0.6) 10^3/ul Absolute Basos (auto) 0 (0-0.2) 10^3/ul Absolute Nucleated RBC 0 10^3/ul Nucleated RBC % 0 Sodium 135 L (139-145) mmol/L Potassium 3.6 (3.5-5.0) mmol/L Chloride 103 (101-111) mmol/L Carbon Dioxide 23 (22-32) mmol/L Anion Gap 9 (2-11) mmol/L BUN 12 (6-24) mg/dL Creatinine 0.69 (0.51-0.95) mg/dL Est GFR ( Amer) 130.3 (>60) Est GFR (Non-Af Amer) 101.3 (>60) BUN/Creatinine Ratio 17.4 (8-20) Glucose 92 (70-100) mg/dL Calcium 9.7 (8.6-10.3) mg/dL Total Bilirubin 0.40 (0.2-1.0) mg/dL AST 18 (13-39) U/L ALT 21 (7-52) U/L Alkaline Phosphatase 45 (34-104) U/L C-Reactive Protein 1.58 (< 5.00) mg/L Total Protein 7.5 (6.4-8.9) g/dL Albumin 4.4 (3.2-5.2) g/dL Globulin 3.1 (2-4) g/dL Albumin/Globulin Ratio 1.4 (1-3) Lipase < 10 L (11.0-82.0) U/L Beta HCG, Quant 884851.00 mIU/mL Urine Color Yellow Urine Appearance Cloudy Urine pH 5.0 (5-9) Ur Specific [place] 1.031 H (1.010-1.030) Urine Protein Negative (Negative) Urine Ketones Trace A (Negative) Urine Blood Negative (Negative) Urine Nitrate Negative (Negative) Urine Bilirubin Negative (Negative) Urine Urobilinogen Negative (Negative) Ur Leukocyte Esterase Negative (Negative) Urine Glucose Negative (Negative) Blood Type Antibody Screen 10/20/17 Range/Units 15:45 WBC (3.5-10.8) 10^3/ul RBC (4.0-5.4) 10^6/ul Hgb (12.0-16.0) g/dl Hct (35-47) % MCV (80-97) fL MCH (27-31) pg MCHC (31-36) g/dl RDW (10.5-15) % Plt Count (150-450) 10^3/ul MPV (7.4-10.4) um3 Neut % (Auto) (38-83) % Lymph % (Auto) (25-47) % [place] % (Auto) (0-7) % Eos % (Auto) (0-6) % Baso % (Auto) (0-2) % Absolute Neuts (auto) (1.5-7.7) 10^3/ul Absolute Lymphs (auto) (1.0-4.8) 10^3/ul Absolute Monos (auto) (0-0.8) 10^3/ul Absolute Eos (auto) (0-0.6) 10^3/ul Absolute Basos (auto) (0-0.2) 10^3/ul Absolute Nucleated RBC 10^3/ul Nucleated RBC % Sodium (139-145) mmol/L Potassium (3.5-5.0) mmol/L Chloride (101-111) mmol/L Carbon Dioxide (22-32) mmol/L Anion Gap (2-11) mmol/L BUN (6-24) mg/dL Creatinine (0.51-0.95) mg/dL Est GFR ( Amer) (>60) Est GFR (Non-Af Amer) (>60) BUN/Creatinine Ratio (8-20) Glucose (70-100) mg/dL Calcium (8.6-10.3) mg/dL Total Bilirubin (0.2-1.0) mg/dL AST (13-39) U/L ALT (7-52) U/L Alkaline Phosphatase (34-104) U/L C-Reactive Protein (< 5.00) mg/L Total Protein (6.4-8.9) g/dL Albumin (3.2-5.2) g/dL Globulin (2-4) g/dL Albumin/Globulin Ratio (1-3) Lipase (11.0-82.0) U/L Beta HCG, Quant mIU/mL Urine Color Urine Appearance Urine pH (5-9) Ur Specific [place] (1.010-1.030) Urine Protein (Negative) Urine Ketones (Negative) Urine Blood (Negative) Urine Nitrate (Negative) Urine Bilirubin (Negative) Urine Urobilinogen (Negative) Ur Leukocyte Esterase (Negative) Urine Glucose (Negative) Blood Type O Positive Antibody Screen Negative Result Diagrams: 10/20/17 15:45 10/20/17 15:45 Lab Statement: Any lab studies that have been ordered have been reviewed, and results considered in the medical decision making process. - Additional Comments Diagnostic Additional Comments: Transvaginal US reveals, per radiologist, 1. SINGLE LIVE INTRAUTERINE GESTATION AT 6 WEEKS, 5 DAYS BY CROWN-RUMP LENGTH. 2. THERE ARE 2 SMALL SUBCHORIONIC HEMORRHAGES. ED physician has reviewed this radiology report. Abdominal Pain Fem Course/Dx - Course Course Of Treatment: DISCUSSED RESULTS WITH PATIENT. PAIN IMPROVED IN ED. OVER ALL, FEELS BETTER AFTER IVF. F/U WITH HER OBGYN; RETURN IF WORSE. - Diagnoses Provider Diagnoses: Pain, abdominal, LLQ, Discharge - Sign-Out/Discharge Documenting (check all that apply): Discharge/Admit/Transfer - Discharge Plan Condition: Stable Disposition: HOME Patient Education Materials: Abdominal Pain in (ED) Referrals: Christine Moon MD [Primary Care Provider] - Additional Instructions: FOLLOW UP WITH YOUR OBGYN. RETURN TO THE EMERGENCY DEPARTMENT FOR ANY WORSENING OF YOUR CONDITION; PAIN, BLEEDING, YOU FEEL ILL OR QUESTIONS OR CONCERNS. - Billing Disposition and Condition Condition: STABLE Disposition: HOME The documentation as recorded by the Casie walters Emily accurately reflects the service I personally performed and the decisions made by me, Janusz Singh MD.
[2017-10-20 19:36] VITALS: BP 133/64
== END 2017-10-20 19:35 | disposition home or self-care (01) ==
LOC: ED 14:45
DX: O26.891 Other specified pregnancy related conditions, first trimester (principal); R10.32 Left lower quadrant pain; Z3A.01 Less than 8 weeks gestation of pregnancy
CPT/HCPCS: 36415; 76817; 80053; 81003; 83690; 84702; 85025; 86140; 86850; 86900; 86901; 96360; 96374; 99283; A9270-GY; J2405

== ENCOUNTER 2017-10-29 22:30 | Emergency (ER) | payer OTHER ==
[2017-10-29 23:49] LABS: ABS Basophils 0 10^3/ul (0-0.2); ABS Eosinophils 0.1 10^3/ul (0-0.6); ABS Lymphocytes 2.4 10^3/ul (1.0-4.8); ABS Monocytes 0.7 10^3/ul (0-0.8); ABS Neutrophils 4.2 10^3/ul (1.5-7.7); ABS Nucleated RBC 0 10^3/ul; Eosinophil % 0.7 % (0-6); Hematocrit 30 % (35-47); Hemoglobin 10.3 g/dl (12.0-16.0); Lymphocyte % 32.5 % (25-47); Mean Corpuscular HGB Conc 35 g/dl (31-36); Mean Corpuscular Hemoglobin 33 pg (27-31); Mean Corpuscular Volume 94 fL (80-97); Mean Platelet Volume 7.7 um3 (7.4-10.4); Nucleated Red Blood Cells % 0; Platelet Count 231 10^3/ul (150-450); Red Blood Count 3.16 10^6/ul (4.0-5.4); Red Cell Distribution Width 13 % (10.5-15); White Blood Count 7.4 10^3/ul (3.5-10.8)
[2017-10-29 23:57] LABS: INR 0.94 (0.77-1.02)
[2017-10-30 00:06] LABS: EGFR Non-African American 126.3 (>60)
[2017-10-30] MEDS ORDERED: NS 0.9% 1000 ML* 1,000 ML IV ONE (00:14)
[2017-10-30] MEDS ORDERED: Acetaminophen TAB* 325 MG PO ONE (00:23)
[2017-10-30] MEDS ORDERED: Acetaminophen TAB* 325 MG ONE (00:24)
[2017-10-30 02:06] VITALS: BP 114/69
--- NOTE | 2017-10-30 05:54 | ED ---
Angy Luna Rebecca, scribed for Janusz Singh MD on 10/29/17 at 2258 . - HPI Summary HPI Summary: Pt is a 26 y/o F who presents to ED c/o abdominal pain. 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 Pain is currently severe , ranked 9/10 and characterized as cramping. Sx aggravated and alleviated by nothing. Additionally c/o vaginal bleeding that began at the time of pain onset , as well as lightheadedness, dehydration, and elevated BG (almost 200 per fatgher's glucometer at home). 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 Negative: Fever - Assessment Hx Now: No Hx Hysterectomy: No - Allergies/Home Medications Allergies/Adverse Reactions: Allergies Allergy/AdvReac Type Severity Reaction Status Date / Time latex Allergy Rash Verified 10/20/17 15:06 PMH/Surg Hx/FS Hx/Imm Hx Endocrine/Hematology History: Reports: Hx Anemia Denies: Hx Anticoagulant Therapy, Hx Blood Disorders, Hx Blood Transfusions, Hx Bone Marrow Disease, Hx Diabetes, Hx Systemic Lupus Erythematosus, Hx Sickle Cell Disease, Hx Thyroid Disease, Hx Unexplained Bleeding Cardiovascular History: Reports: Other Cardiovascular Problems/Disorders - Tachy -admitted to tele on 08/30/13 Denies: Hx Aneurysm, Hx Angina, Hx Angioplasty, Hx Auto Implanted Cardiovert Defib, Hx Cardiac Arrest, Hx Cardiomegaly, Hx Congenital Heart Disease, Hx Congestive Heart Failure, Hx Coronary Artery Disease, Hx Deep Vein Thrombosis, Hx Embolism, Hx Hypercholesterolemia, Hx Hypotension, Hx Hypertension, Hx Pacemaker/ICD, Hx Peripheral Vascular Disease, Hx Rheumatic Fever, Hx Syncope, Hx Valvular Heart Disease Respiratory History: Reports: Hx Seasonal Allergies Denies: Hx Asthma, Hx Chronic Bronchitis, Hx Chronic Obstructive Pulmonary Disease (COPD), Hx Cystic Fibrosis, Hx Lung Cancer, Hx Pleural Effusion, Hx Pneumonia, Hx Pulmonary Edema, Hx Pulmonary Embolism, Hx Sleep Apnea GI History: Reports: Hx Irritable Bowel, Other GI Disorders - hx of pancreatitis, ulcerative colitis Denies: Hx Cirrhosis, Hx Crohn's Disease, Hx Diverticulosis, Hx Gall Bladder Disease, Hx Gastroesophageal Reflux Disease, Hx Gastrointestinal Bleed, Hx Hiatal Hernia, Hx Jaundice, Hx Obstructive Bowel, Hx Ileostomy, Hx Pyloric Stenosis, Hx Ulcer Sensory History: Reports: Hx Contacts or Glasses Denies: Hx Cataracts, Hx Eye Injury, Hx Eye Prosthesis, Hx Glaucoma, Hx Legally Blind, Hx Macular Degeneration, Hx Vision Problem, Hx Deafness, Hx Hearing Aid, Hx Hearing Problem, Other Sensory Impairments Opthamlomology History: Reports: Hx Contacts or Glasses Denies: Hx Cataracts, Hx Eye Injury, Hx Eye Prosthesis, Hx Glaucoma, Hx Legally Blind, Hx Macular Degeneration, Hx Vision Problem, Other Sensory Impairments Neurological History: Reports: Hx Headaches - after remicade infusions, Hx Migraine Denies: Hx Dementia, Hx Developmental Delay, Hx Nerve Disease, Hx Seizures, Hx Spinal Cord Injury, Hx Transient Ischemic Attacks (TIA) Psychiatric History: Denies: Hx Panic Disorder - Surgical History Surgery Procedure, Year, and Place: Hammer toe corrections, tear duct, cyst removed from left wrist, tonsillectomy Hx Anesthesia Reactions: No - Immunization History Date of Tetanus Vaccine: within 10 years Date of Influenza Vaccine: none Infectious Disease History: No Infectious Disease History: Denies: Hx Clostridium Difficile, Hx Hepatitis, Hx Human Immunodeficiency Virus (HIV), Hx of Known/Suspected MRSA, Hx Shingles, Hx Tuberculosis, Hx Known/ Suspected VRE, Hx Known/Suspected VRSA, History Other Infectious Disease, Traveled Outside the [place] in Last 30 Days - Family History Known Family History: Positive: Diabetes, Other - migraines Negative: Renal Disease, Respiratory Disease, Seizure Disorder - Social History Alcohol Use: Occasionally Alcohol Amount: None since 2016 Hx Substance Use: Yes Substance Use Type: Reports: Marijuana Substance Use Comment - Amount & Last Used: Occassional use Hx Tobacco Use: No Smoking Status (MU): Never Smoked Tobacco Review of Systems Positive: Other - Dehydration, elevated BG. Negative: Fever Positive: Abdominal Pain Positive: other - Vaginal bleeding Neurological: Other - Lightheadedness All Other Systems Reviewed And Are Negative: Yes Physical Exam - Summary Physical Exam Summary: General: well-appearing, no pain distress Skin: warm, color reflects adequate perfusion, dry Head: normal Eyes: EOMI, [place] ENT: normal Neck: supple, nontender Respiratory: CTA, breath sounds present Cardiovascular: RRR Abdomen: soft, mild suprapubic tenderness Bowel: present Musculoskeletal: normal, strength/ROM intact Neurological: normal, sensory/motor intact, A&O x3 Psychological: affect/mood appropriate - Physical Exam Triage Information Reviewed: Yes Vital Signs Reviewed: Yes Diagnostics - Vital Signs Vital Signs Temp Pulse Resp BP Pulse Ox 10/29/17 22:32 98.6 F 87 16 121/83 100 - Laboratory Lab Results: Lab Results 10/29/17 10/29/17 10/29/17 Range/Units 23:38 23:38 23:38 WBC 7.4 (3.5-10.8) 10^3/ul RBC 3.16 L (4.0-5.4) 10^6/ul Hgb 10.3 L (12.0-16.0) g/dl Hct 30 L (35-47) % MCV 94 (80-97) fL MCH 33 H (27-31) pg MCHC 35 (31-36) g/dl RDW 13 (10.5-15) % Plt Count 231 (150-450) 10^3/ul MPV 7.7 (7.4-10.4) um3 Neut % (Auto) 56.4 (38-83) % Lymph % (Auto) 32.5 (25-47) % [place] % (Auto) 10.1 H (0-7) % Eos % (Auto) 0.7 (0-6) % Baso % (Auto) 0.3 (0-2) % Absolute Neuts (auto) 4.2 (1.5-7.7) 10^3/ul Absolute Lymphs (auto) 2.4 (1.0-4.8) 10^3/ul Absolute Monos (auto) 0.7 (0-0.8) 10^3/ul Absolute Eos (auto) 0.1 (0-0.6) 10^3/ul Absolute Basos (auto) 0 (0-0.2) 10^3/ul Absolute Nucleated RBC 0 10^3/ul Nucleated RBC % 0 INR (Anticoag Therapy) 0.94 (0.77-1.02) APTT 28.7 (26.0-36.3) seconds Sodium 136 L (139-145) mmol/L Potassium 3.7 (3.5-5.0) mmol/L Chloride 106 (101-111) mmol/L Carbon Dioxide 24 (22-32) mmol/L Anion Gap 6 (2-11) mmol/L BUN 13 (6-24) mg/dL Creatinine 0.57 (0.51-0.95) mg/dL Est GFR ( Amer) 162.4 (>60) Est GFR (Non-Af Amer) 126.3 (>60) BUN/Creatinine Ratio 22.8 H (8-20) Glucose 102 H (70-100) mg/dL Calcium 9.0 (8.6-10.3) mg/dL Total Bilirubin 0.30 (0.2-1.0) mg/dL AST 14 (13-39) U/L ALT 13 (7-52) U/L Alkaline Phosphatase 38 (34-104) U/L C-Reactive Protein 3.02 (< 5.00) mg/L Total Protein 6.2 L (6.4-8.9) g/dL Albumin 3.8 (3.2-5.2) g/dL Globulin 2.4 (2-4) g/dL Albumin/Globulin Ratio 1.6 (1-3) Beta HCG, Quant Pending Result Diagrams: 10/29/17 23:38 10/29/17 23:38 Lab Statement: Any lab studies that have been ordered have been reviewed, and results considered in the medical decision making process. - Ultrasound No standard instances Ultrasound Interpretation Completed By: Radiologist - US Obstetric: There is a single live intrauterine gestation with measurements corresponding to 8 weeks and 3 days. heart rate is at 169 beats per minute motion was observed. A yolk sac is noted. There is a subchorionic bleed measuring 8 mm x 2 mm x 1 cm. I do not ahve the prior scan although the technologist reports that 9 days ago there were 2 subchorionic hemorrhages which were the same size or larger than the current one. Cervix measures 3.78 cm in length and is closed. Normal ovaries. ED physician reviewed this radiology report. Re-Evaluation - Re-Evaluation First Eval Re-Evaluation Time: 00:55 Comment: Still having cramping pain. Discussed results. Course/Dx - Course Course Of Treatment: DISCUSSED RESULTS WITH THE PATIENT AND HER MOTHER. F/U WITH OBGYN IS SCHEDULED FOR 10/31/17. RETURN IF WORSE. Assessment/Plan: Medications reviewed. Allergies noted. - Diagnoses Provider Diagnoses: Vaginal bleeding affecting early Discharge - Sign-Out/Discharge Documenting (check all that apply): Discharge/Admit/Transfer - Discharge - Discharge Plan Condition: Stable Disposition: HOME Patient Education Materials: First Trimester Vaginal Bleed (ED) Forms: *Work Release Referrals: Christine Moon MD [Primary Care Provider] - Additional Instructions: FOLLOW UP WITH YOUR OBGYN TOMORROW, 10/31/17, SCHEDULED. RETURN TO THE EMERGENCY DEPARTMENT FOR ANY WORSENING OF YOUR CONDITION OR QUESTIONS OR CONCERNS. - Billing Disposition and Condition Condition: STABLE Disposition: HOME The documentation as recorded by the Angy walters Rebecca accurately reflects the service I personally performed and the decisions made by me, Janusz Singh MD.
--- NOTE | 2017-10-30 07:52 | RAD ---
INDICATION: Vaginal bleeding 10 weeks . COMPARISON: Comparison is made with a prior study from October 20, 2017. TECHNIQUE: Multiple real-time transvaginal images of the pelvis were obtained. FINDINGS: This exam demonstrates an early intrauterine . A pole and yolk sac are visualized. The heart rate was 169 beats per minute. There is a small subchorionic collection most consistent with a hemorrhage measuring 0.8 x 0.2 x 1.0 cm. On the prior study there are 2 subchorionic hematomas measuring 1.4 x 0.5 x 0.2 and 1.1 x 0.2 x 0.9 cm each. The crown-rump length measured 1.74 cm corresponding to an estimated gestational age of 8 weeks 2 days. The mean sac diameter measured 3.23 cm corresponding to an estimate gestational age of 8 weeks 4 days. The right ovary measured 2.2 x 1.5 x 1.2 cm. The left ovary measured 2.6 x 2.1 x 1.9 cm. The cervix measures 3.8 cm in length and is closed. No free intraperitoneal fluid is seen. IMPRESSION: 1. THERE IS A SINGLE VIABLE INTRAUTERINE WITH AN ESTIMATED GESTATIONAL AGE OF 8 WEEKS 2 DAYS BY CROWN-RUMP LENGTH. 2. SMALL SUBCHORIONIC HEMATOMA DECREASED IN SIZE FROM THE PRIOR STUDY.
== END 2017-10-30 02:10 | disposition home or self-care (01) ==
LOC: ED 22:30
DX: O20.9 Hemorrhage in early pregnancy, unspecified (principal); R10.30 Lower abdominal pain, unspecified; R42 Dizziness and giddiness; E86.0 Dehydration; R73.9 Hyperglycemia, unspecified; Z3A.08 8 weeks gestation of pregnancy; Z91.040 Latex allergy status
CPT/HCPCS: 36415; 76815; 80053; 84702; 85025; 85610; 85730; 86140; 96360; 99283; A9270-GY

== ENCOUNTER 2017-11-24 09:21 | Emergency (ER) | payer OTHER ==
[2017-11-24] MEDS ORDERED: Metoclopramide IV* 5 MG/ML 2 ML VIAL IV ONE (09:29)
[2017-11-24] MEDS ORDERED: diPHENhydraMINE IV* 50 MG/ML 1 ml VIAL (BENADRYL) IV ONE (09:29)
[2017-11-24] MEDS ORDERED: NS 0.9% 1000 ML* 1,000 ML IV ONE (09:29)
[2017-11-24] MEDS ORDERED: Ketorolac INJ* 30 MG/ML 1 ML VIAL IV PUSH ONE (09:30)
[2017-11-24] MEDS ORDERED: Acetaminophen TAB* 325 MG PO ONE (09:35)
--- NOTE | 2017-11-24 09:37 | ED ---
- HPI Summary HPI Summary: Patient is a 26-year-old female presenting to the ED with chief complaint of migraine and nausea with some abdominal cramping with diarrhea. History of colitis. She is also requesting an ultrasound on this date. She denies any vaginal bleeding. She is frequently seen in the ED for migraines and abdominal pain. She states this is at her baseline. She denies any fevers, sweats, chills. She takes no medications. Appointment with [facility] next week. Patient is approximately 12 weeks . - History of Current Complaint Chief Complaint: EDGeneral Stated Complaint: N/V/D/SYNCOPE THIS AM Time Seen by Provider: 11/24/17 09:28 Hx Obtained From: Patient Onset/Duration: Started Hours Ago Timing: Constant Severity: Mild Current Severity: Mild Pain Intensity: 8 Location of Pain: None Character: None Associated Signs and Symptoms: Positive: Nausea - Assessment Hx Now: No Hx Hysterectomy: No - Allergies/Home Medications Allergies/Adverse Reactions: Allergies Allergy/AdvReac Type Severity Reaction Status Date / Time latex Allergy Rash Verified 11/24/17 09:28 PMH/Surg Hx/FS Hx/Imm Hx Previously Healthy: Yes Endocrine/Hematology History: Reports: Hx Anemia Denies: Hx Anticoagulant Therapy, Hx Blood Disorders, Hx Blood Transfusions, Hx Bone Marrow Disease, Hx Diabetes, Hx Systemic Lupus Erythematosus, Hx Sickle Cell Disease, Hx Thyroid Disease, Hx Unexplained Bleeding Cardiovascular History: Reports: Other Cardiovascular Problems/Disorders - Tachy -admitted to tele on 08/30/13 Denies: Hx Aneurysm, Hx Angina, Hx Angioplasty, Hx Auto Implanted Cardiovert Defib, Hx Cardiac Arrest, Hx Cardiomegaly, Hx Congenital Heart Disease, Hx Congestive Heart Failure, Hx Coronary Artery Disease, Hx Deep Vein Thrombosis, Hx Embolism, Hx Hypercholesterolemia, Hx Hypotension, Hx Hypertension, Hx Pacemaker/ICD, Hx Peripheral Vascular Disease, Hx Rheumatic Fever, Hx Syncope, Hx Valvular Heart Disease Respiratory History: Reports: Hx Seasonal Allergies Denies: Hx Asthma, Hx Chronic Bronchitis, Hx Chronic Obstructive Pulmonary Disease (COPD), Hx Cystic Fibrosis, Hx Lung Cancer, Hx Pleural Effusion, Hx Pneumonia, Hx Pulmonary Edema, Hx Pulmonary Embolism, Hx Sleep Apnea GI History: Reports: Hx Irritable Bowel, Other GI Disorders - hx of pancreatitis, ulcerative colitis Denies: Hx Cirrhosis, Hx Crohn's Disease, Hx Diverticulosis, Hx Gall Bladder Disease, Hx Gastroesophageal Reflux Disease, Hx Gastrointestinal Bleed, Hx Hiatal Hernia, Hx Jaundice, Hx Obstructive Bowel, Hx Ileostomy, Hx Pyloric Stenosis, Hx Ulcer Sensory History: Reports: Hx Contacts or Glasses Denies: Hx Cataracts, Hx Eye Injury, Hx Eye Prosthesis, Hx Glaucoma, Hx Legally Blind, Hx Macular Degeneration, Hx Vision Problem, Hx Deafness, Hx Hearing Aid, Hx Hearing Problem, Other Sensory Impairments Opthamlomology History: Reports: Hx Contacts or Glasses Denies: Hx Cataracts, Hx Eye Injury, Hx Eye Prosthesis, Hx Glaucoma, Hx Legally Blind, Hx Macular Degeneration, Hx Vision Problem, Other Sensory Impairments Neurological History: Reports: Hx Headaches - after remicade infusions, Hx Migraine Denies: Hx Dementia, Hx Developmental Delay, Hx Nerve Disease, Hx Seizures, Hx Spinal Cord Injury, Hx Transient Ischemic Attacks (TIA) Psychiatric History: Denies: Hx Panic Disorder - Surgical History Surgery Procedure, Year, and Place: Hammer toe corrections, tear duct, cyst removed from left wrist, tonsillectomy Hx Anesthesia Reactions: No - Immunization History Date of Tetanus Vaccine: within 10 years Date of Influenza Vaccine: none Hx Pertussis Vaccination: No Immunizations Up to Date: Unable to Obtain/Confirm Infectious Disease History: No Infectious Disease History: Denies: Hx Clostridium Difficile, Hx Hepatitis, Hx Human Immunodeficiency Virus (HIV), Hx of Known/Suspected MRSA, Hx Shingles, Hx Tuberculosis, Hx Known/ Suspected VRE, Hx Known/Suspected VRSA, History Other Infectious Disease, Traveled Outside the [place] in Last 30 Days - Family History Known Family History: Positive: Diabetes, Other - migraines Negative: Renal Disease, Respiratory Disease, Seizure Disorder - Social History Occupation: Unemployed Lives: Alone Alcohol Use: Occasionally Alcohol Amount: None since 2016 Hx Substance Use: Yes Substance Use Type: Reports: Marijuana Substance Use Comment - Amount & Last Used: Occassional use Hx Tobacco Use: No Smoking Status (MU): Never Smoked Tobacco Review of Systems Constitutional: Negative Negative: Fever, Chills, Fatigue, Skin Diaphoresis ENT: Negative Cardiovascular: Negative Negative: Shortness Of Breath, Cough Positive: Vomiting, Diarrhea, Nausea Genitourinary: Negative Positive: no symptoms reported, see HPI Musculoskeletal: Negative Skin: Negative Neurological: Negative All Other Systems Reviewed And Are Negative: Yes Physical Exam - Physical Exam Triage Information Reviewed: Yes Vital Signs Reviewed: Yes Appearance: Positive: Well-Appearing, Well-Nourished Skin: Positive: Warm, Skin Color Reflects Adequate Perfusion Head/Face: Positive: Normal Head/Face Inspection Eyes: Positive: EOMI, [place], Conjunctiva Clear Respiratory/Lung Sounds: Positive: Clear to Auscultation, Breath Sounds Present Cardiovascular: Positive: RRR, Pulses are Symmetrical in both Upper and Lower Extremities Musculoskeletal: Positive: Normal Neurological: Positive: Sensory/Motor Intact, Alert, Oriented to Person Place, Time, Speech Normal Psychiatric: Positive: Normal, Affect/Mood Appropriate AVPU Assessment: Alert Diagnostics - Vital Signs Vital Signs Temp Pulse Resp BP Pulse Ox 11/24/17 09:25 98.3 F 89 16 129/90 99 - Laboratory Lab Statement: Any lab studies that have been ordered have been reviewed, and results considered in the medical decision making process. Course/Dx - Course Course Of Treatment: During the course of treatment, the patient is evaluated for migraine with nausea. Also endorses some abdominal pain. She is given 1 L fluids as well as Reglan. Symptoms resolved. I discussed not obtaining an ultrasound at this time as this will be done as an outpatient. She is okay with this plan and discharged. - Diagnoses Provider Diagnoses: Nausea and vomiting Discharge - Sign-Out/Discharge Documenting (check all that apply): Discharge/Admit/Transfer - Discharge Plan Condition: Stable Disposition: HOME Prescriptions: Metoclopramide TAB* [Reglan TAB*] 10 mg PO Q6H #20 tab Patient Education Materials: Nausea and Vomiting in (ED) Referrals: Christine Moon MD [Primary Care Provider] - Additional Instructions: Reglan use for nausea up to every 6 hours Tylenol for any headaches Please follow up with [facility] - Billing Disposition and Condition Condition: STABLE Disposition: Home
[2017-11-24 11:15] VITALS: BP 105/54
== END 2017-11-24 11:14 | disposition home or self-care (01) ==
LOC: ED 09:21
DX: O21.0 Mild hyperemesis gravidarum (principal); Z3A.12 12 weeks gestation of pregnancy; D64.9 Anemia, unspecified; G43.909 Migraine, unspecified, not intractable, without status migrainosus; Z91.040 Latex allergy status; Z83.3 Family history of diabetes mellitus
CPT/HCPCS: 96374; 99282; A9270-GY; J2765

== ENCOUNTER → 2018-04-14 21:04 | Emergency (ER) | payer OTHER ==
[2018-04-14 21:49] LABS: ABS Basophils 0 10^3/ul (0-0.2); ABS Eosinophils 0.1 10^3/ul (0-0.6); ABS Lymphocytes 2.2 10^3/ul (1.0-4.8); ABS Monocytes 0.9 10^3/ul (0-0.8); ABS Neutrophils 6.9 10^3/ul (1.5-7.7); ABS Nucleated RBC 0 10^3/ul; Eosinophil % 0.8 % (0-6); Hematocrit 32 % (35-47); Hemoglobin 11.3 g/dl (12.0-16.0); Lymphocyte % 21.7 % (25-47); Mean Corpuscular HGB Conc 35 g/dl (31-36); Mean Corpuscular Hemoglobin 33 pg (27-31); Mean Corpuscular Volume 96 fL (80-97); Mean Platelet Volume 8.4 um3 (7.4-10.4); Nucleated Red Blood Cells % 0.1; Platelet Count 221 10^3/ul (150-450); Red Blood Count 3.37 10^6/ul (4.00-5.40); Red Cell Distribution Width 13 % (10.5-15); White Blood Count 10.1 10^3/ul (3.5-10.8)
[2018-04-14 22:05] LABS: EGFR Non-African American 142.6 (>60)
[2018-04-14 22:19] LABS: Urine Appearance Cloudy; Urine Blood Negative (Negative); Urine Color Yellow; Urine Ketones Negative (Negative); Urine Protein Negative (Negative); Urine Specific Gravity 1.008 (1.010-1.030); Urine Urobilinogen Negative (Negative)
--- NOTE | 2018-04-14 23:34 | RAD ---
EXAM: US Right Duplex Lower Extremity Veins, Limited EXAM DATE/TIME: 04/14/2018 10:43 PM CLINICAL HISTORY: 27 years old, female; Signs and symptoms; Swelling of limb; Lower extremity, right; Additional info: Right lower leg swelling, 33 weeks TECHNIQUE: Real-time Duplex ultrasound of the Right Lower Extremity with 2-D limon scale, color Doppler flow and spectral waveform analysis. Limited exam was focused on the right lower extremity veins. COMPARISON: No relevant prior studies available. FINDINGS: Right deep veins: Unremarkable. The common femoral, femoral and popliteal veins are patent without thrombus. Normal compressibility, augmentation response and Doppler waveforms. Right superficial veins: Unremarkable. Saphenofemoral junction is patent without thrombus. Soft tissues: Unremarkable. IMPRESSION: No left lower extremity DVT. To contact [facility] with a general question: [facility] - [phone] For direct physician to physician contact: Physician Hotline - [phone] [facility] ([facility] Facility ID #[id number])
--- NOTE | 2018-04-14 23:44 | ED ---
Lower Extremity - HPI Summary HPI Summary: 27-year-old female presents with right leg edema for the past couple days. She states that she had edema bilaterally but the left leg has resolved. She denies any pain. She denies any chest pain or shortness breath. She states she also concerned that she may be preeclamptic. no headache. occasionally abd pain but none now. No medical conditions. - History of Current Complaint Chief Complaint: EDExtremityLower Stated Complaint: 33 WKS PREG/RT LEG SWOLLEN Time Seen by Provider: 04/14/18 21:40 Hx Last Menstrual Period: 2015 Pain Intensity: 0 - Allergies/Home Medications Allergies/Adverse Reactions: Allergies Allergy/AdvReac Type Severity Reaction Status Date / Time latex Allergy Rash Verified 04/14/18 21:14 PMH/Surg Hx/FS Hx/Imm Hx Endocrine/Hematology History: Reports: Hx Anemia Denies: Hx Anticoagulant Therapy, Hx Blood Disorders, Hx Blood Transfusions, Hx Bone Marrow Disease, Hx Diabetes, Hx Systemic Lupus Erythematosus, Hx Sickle Cell Disease, Hx Thyroid Disease, Hx Unexplained Bleeding Cardiovascular History: Reports: Other Cardiovascular Problems/Disorders - Tachy -admitted to [facility] on 08/30/13 Denies: Hx Aneurysm, Hx Angina, Hx Angioplasty, Hx Auto Implanted Cardiovert Defib, Hx Cardiac Arrest, Hx Cardiomegaly, Hx Congenital Heart Disease, Hx Congestive Heart Failure, Hx Coronary Artery Disease, Hx Deep Vein Thrombosis, Hx Embolism, Hx Hypercholesterolemia, Hx Hypotension, Hx Hypertension, Hx Pacemaker/ICD, Hx Peripheral Vascular Disease, Hx Rheumatic Fever, Hx Syncope, Hx Valvular Heart Disease Respiratory History: Reports: Hx Seasonal Allergies Denies: Hx Asthma, Hx Chronic Bronchitis, Hx Chronic Obstructive Pulmonary Disease (COPD), Hx Cystic Fibrosis, Hx Lung Cancer, Hx Pleural Effusion, Hx Pneumonia, Hx Pulmonary Edema, Hx Pulmonary Embolism, Hx Sleep Apnea GI History: Reports: Hx Irritable Bowel, Other GI Disorders - hx of pancreatitis, ulcerative colitis Denies: Hx Cirrhosis, Hx Crohn's Disease, Hx Diverticulosis, Hx Gall Bladder Disease, Hx Gastroesophageal Reflux Disease, Hx Gastrointestinal Bleed, Hx Hiatal Hernia, Hx Jaundice, Hx Obstructive Bowel, Hx Ileostomy, Hx Pyloric Stenosis, Hx Ulcer Sensory History: Reports: Hx Contacts or Glasses Denies: Hx Cataracts, Hx Eye Injury, Hx Eye Prosthesis, Hx Glaucoma, Hx Legally Blind, Hx Macular Degeneration, Hx Vision Problem, Hx Deafness, Hx Hearing Aid, Hx Hearing Problem, Other Sensory Impairments Opthamlomology History: Reports: Hx Contacts or Glasses Denies: Hx Cataracts, Hx Eye Injury, Hx Eye Prosthesis, Hx Glaucoma, Hx Legally Blind, Hx Macular Degeneration, Hx Vision Problem, Other Sensory Impairments Neurological History: Reports: Hx Headaches - after remicade infusions, Hx Migraine Denies: Hx Dementia, Hx Developmental Delay, Hx Nerve Disease, Hx Seizures, Hx Spinal Cord Injury, Hx Transient Ischemic Attacks (TIA) Psychiatric History: Denies: Hx Panic Disorder - Surgical History Surgery Procedure, Year, and Place: Hammer toe corrections, tear duct, cyst removed from left wrist, tonsillectomy Hx Anesthesia Reactions: No - Immunization History Date of Tetanus Vaccine: within 10 years Date of Influenza Vaccine: none Infectious Disease History: No Infectious Disease History: Denies: Hx Clostridium Difficile, Hx Hepatitis, Hx Human Immunodeficiency Virus (HIV), Hx of Known/Suspected MRSA, Hx Shingles, Hx Tuberculosis, Hx Known/ Suspected VRE, Hx Known/Suspected VRSA, History Other Infectious Disease, Traveled Outside the [place] in Last 30 Days - Family History Known Family History: Positive: Diabetes, Other - migraines Negative: Renal Disease, Respiratory Disease, Seizure Disorder - Social History Alcohol Use: Occasionally Alcohol Amount: None since 2016 Hx Substance Use: Yes Substance Use Type: Reports: Marijuana Substance Use Comment - Amount & Last Used: Occassional use Hx Tobacco Use: No Smoking Status (MU): Never Smoked Tobacco Review of Systems Negative: Fever Negative: Chest Pain Negative: Shortness Of Breath Positive: Myalgia - right leg All Other Systems Reviewed And Are Negative: Yes Physical Exam Triage Information Reviewed: Yes Vital Signs On Initial Exam: Initial Vitals Temp Pulse Resp BP Pulse Ox 97.0 F 119 18 136/88 99 04/14/18 21:08 04/14/18 21:08 04/14/18 21:08 04/14/18 21:08 04/14/18 21:08 Vital Signs Reviewed: Yes Appearance: Positive: Well-Appearing Skin: Positive: Warm, Dry Head/Face: Positive: Normal Head/Face Inspection Eyes: Positive: Normal, Conjunctiva Clear ENT: Positive: Pharynx normal Respiratory/Lung Sounds: Positive: Clear to Auscultation, Breath Sounds Present Cardiovascular: Positive: Normal, RRR Musculoskeletal: Positive: Strength/ROM Intact - right leg, Edema Right - leg, Other - good pulses, capillary refill<2secs Neurological: Positive: Normal Psychiatric: Positive: Normal Diagnostics - Vital Signs Vital Signs Temp Pulse Resp BP Pulse Ox 04/14/18 21:08 97.0 F 119 18 136/88 99 - Laboratory Lab Results: Lab Results 04/14/18 04/14/18 04/14/18 Range/Units 21:39 21:39 21:39 WBC 10.1 (3.5-10.8) 10^3/ul RBC 3.37 L (4.00-5.40) 10^6/ul Hgb 11.3 L (12.0-16.0) g/dl Hct 32 L (35-47) % MCV 96 (80-97) fL MCH 33 H (27-31) pg MCHC 35 (31-36) g/dl RDW 13 (10.5-15) % Plt Count 221 (150-450) 10^3/ul MPV 8.4 (7.4-10.4) um3 Neut % (Auto) 68.5 (38-83) % Lymph % (Auto) 21.7 L (25-47) % [place] % (Auto) 8.6 H (0-7) % Eos % (Auto) 0.8 (0-6) % Baso % (Auto) 0.4 (0-2) % Absolute Neuts (auto) 6.9 (1.5-7.7) 10^3/ul Absolute Lymphs (auto) 2.2 (1.0-4.8) 10^3/ul Absolute Monos (auto) 0.9 H (0-0.8) 10^3/ul Absolute Eos (auto) 0.1 (0-0.6) 10^3/ul Absolute Basos (auto) 0 (0-0.2) 10^3/ul Absolute Nucleated RBC 0 10^3/ul Nucleated RBC % 0.1 Sodium 137 (135-145) mmol/L Potassium 3.8 (3.5-5.0) mmol/L Chloride 107 (101-111) mmol/L Carbon Dioxide 24 (22-32) mmol/L Anion Gap 6 (2-11) mmol/L BUN 7 (6-24) mg/dL Creatinine 0.51 (0.51-0.95) mg/dL Est GFR ( Amer) 172.5 (>60) Est GFR (Non-Af Amer) 142.6 (>60) BUN/Creatinine Ratio 13.7 (8-20) Glucose 124 H (70-100) mg/dL Calcium 9.0 (8.6-10.3) mg/dL Total Bilirubin 0.20 (0.2-1.0) mg/dL AST 13 (13-39) U/L ALT 9 (7-52) U/L Alkaline Phosphatase 111 H (34-104) U/L C-Reactive Protein 6.45 (<8.01) mg/L B-Natriuretic Peptide 10 ( - 100) pg/mL Total Protein 6.1 L (6.4-8.9) g/dL Albumin 3.3 (3.2-5.2) g/dL Globulin 2.8 (2-4) g/dL Albumin/Globulin Ratio 1.2 (1-3) Urine Color Urine Appearance Urine pH (5-9) Ur Specific [place] (1.010-1.030) Urine Protein (Negative) Urine Ketones (Negative) Urine Blood (Negative) Urine Nitrate (Negative) Urine Bilirubin (Negative) Urine Urobilinogen (Negative) Ur Leukocyte Esterase (Negative) Urine Glucose (Negative) 04/14/18 Range/Units 22:12 WBC (3.5-10.8) 10^3/ul RBC (4.00-5.40) 10^6/ul Hgb (12.0-16.0) g/dl Hct (35-47) % MCV (80-97) fL MCH (27-31) pg MCHC (31-36) g/dl RDW (10.5-15) % Plt Count (150-450) 10^3/ul MPV (7.4-10.4) um3 Neut % (Auto) (38-83) % Lymph % (Auto) (25-47) % [place] % (Auto) (0-7) % Eos % (Auto) (0-6) % Baso % (Auto) (0-2) % Absolute Neuts (auto) (1.5-7.7) 10^3/ul Absolute Lymphs (auto) (1.0-4.8) 10^3/ul Absolute Monos (auto) (0-0.8) 10^3/ul Absolute Eos (auto) (0-0.6) 10^3/ul Absolute Basos (auto) (0-0.2) 10^3/ul Absolute Nucleated RBC 10^3/ul Nucleated RBC % Sodium (135-145) mmol/L Potassium (3.5-5.0) mmol/L Chloride (101-111) mmol/L Carbon Dioxide (22-32) mmol/L Anion Gap (2-11) mmol/L BUN (6-24) mg/dL Creatinine (0.51-0.95) mg/dL Est GFR ( Amer) (>60) Est GFR (Non-Af Amer) (>60) BUN/Creatinine Ratio (8-20) Glucose (70-100) mg/dL Calcium (8.6-10.3) mg/dL Total Bilirubin (0.2-1.0) mg/dL AST (13-39) U/L ALT (7-52) U/L Alkaline Phosphatase (34-104) U/L C-Reactive Protein (<8.01) mg/L B-Natriuretic Peptide ( - 100) pg/mL Total Protein (6.4-8.9) g/dL Albumin (3.2-5.2) g/dL Globulin (2-4) g/dL Albumin/Globulin Ratio (1-3) Urine Color Yellow Urine Appearance Cloudy Urine pH 6.0 (5-9) Ur Specific [place] 1.008 L (1.010-1.030) Urine Protein Negative (Negative) Urine Ketones Negative (Negative) Urine Blood Negative (Negative) Urine Nitrate Negative (Negative) Urine Bilirubin Negative (Negative) Urine Urobilinogen Negative (Negative) Ur Leukocyte Esterase Negative (Negative) Urine Glucose Negative (Negative) Result Diagrams: 04/14/18 21:39 04/14/18 21:39 Lab Statement: Any lab studies that have been ordered have been reviewed, and results considered in the medical decision making process. - Ultrasound No standard instances Ultrasound Interpretation Completed By: Radiologist Summary of Ultrasound Findings: no dvt Lower Extremity Course/Dx - Course Course Of Treatment: 27-year-old female presents with right leg edema for the past couple days. She states that she had edema bilaterally but the left leg has resolved. She denies any pain. She denies any chest pain or shortness breath. She states she also concerned that she may be preeclamptic. no headache. occasionally abd pain but none now. No medical conditions. on exam bp less than 140/80. nontender abd. nontender leg, edema noted to right. u/s neg dvt. lft normal. no proteinuria. discussed should try some compression socks. patient understand and agrees with plan. - Diagnoses Differential Diagnosis/HQI/PQRI: Positive: DVT, Other - edema, chf Provider Diagnoses: Leg edema, right Discharge - Sign-Out/Discharge Documenting (check all that apply): Patient Departure - Discharge Plan Condition: Good Disposition: HOME Patient Education Materials: Leg Edema (ED) Referrals: Christine Moon MD [Primary Care Provider] - Additional Instructions: Use compression socks Ice Elevate Take Tylenol for pain every 6 hours Follow up with primary within 5 days Return to ED if develop any new or worsening symptoms - Billing Disposition and Condition Condition: GOOD Disposition: Home
[2018-04-15 00:14] VITALS: BP 144/80
== END | disposition home or self-care (01) ==
LOC: ED 21:04
DX: R60.0 Localized edema (principal); Z34.93 Encounter for supervision of normal pregnancy, unspecified, third trimester; Z3A.33 33 weeks gestation of pregnancy
CPT/HCPCS: 36415; 80053; 81003; 83880; 85025; 86140; 99282

== ENCOUNTER 2018-06-02 06:00 | Inpatient (IN) | payer OTHER ==
--- NOTE | 2018-06-02 06:46 | PN ---
L&D Outpatient: Visit - Reproductive Information Estimated Due Date: 06/05/18 Gestational Age: 39 Weeks and 4 Days : 2 Para: 0 - IEA x 1 - Reason for Visit Visit Reason: labor evaluation, rule out rupture, GBS + - Antepartal Records Antepartal Record: Reviewed, Uncomplicated - Patient History Patient History Significant: Yes Patient History Significant For: Hx ulcerative colitis Review of Systems Constitutional: Uncomfortable CV Complaint: No Respiratory: Shortness of Breath: No Gastrointestinal: No Nausea/Vomiting, Soft Stool - s/p use of laxative overnight for constipation Genitourinary: Leaking Fluid, No Dysuria, Spotting Musculoskeletal: Contractions, Pressure Neurological: No Headache, No Visual Changes Movement: Normal L&D Outpatient: Exam Vitals - Most Recent: BP 110/69 HR 98 T 98.2 RR 18 - Cervical Exam Cervical Exam: 1cm/80%/vtx -1 per RN - Abdominal Exam Abdomen Exam: Non-Tender, Fundal Height Consistent with Dates - Membranes Membrane Status: Possible SROM/Pending - ROM + Collected and sent - Ultrasound/Biophysical Profile Ultrasound Status: Not Done EFM Findings - External Monitor Findings Baseline Heart Rate: 130 External Monitor Findings: Accelerations Present, No Pattern of Variable or Late Decelerations, Variability Moderate, Baseline Stable External Monitor Findings Comment: No evidence of metabolic acidemia Contractions: Regular, Mild Contraction Frequency: q 2-4 min L&D Outpatient: Asses/Plan Assessment: A: IUP at 39+ weeks in latent labor Possible rupture, ROM + pending. Known GBS + No evidence of metabolic acidemia P: Will follow-up per ROM + results and admit/initiate GBS prophylaxis if indicated. Continue to monitor. Report to Mackenzie Tong CNM who will assume care at 0800
[2018-06-02] MEDS: Vancomycin(*) 1,000 MG in NS 0.9% 250 ML* 250 ML IVPB SCH ×2 (08:07→22:27)
[2018-06-02 08:27] LABS: ABS Basophils 0.1 10^3/ul (0-0.2); ABS Eosinophils 0 10^3/ul (0-0.6); ABS Lymphocytes 2.2 10^3/ul (1.0-4.8); ABS Monocytes 1.1 10^3/ul (0-0.8); ABS Neutrophils 11.2 10^3/ul (1.5-7.7); ABS Nucleated RBC 0 10^3/ul; Eosinophil % 0.3 %; Hematocrit 34 % (35-47); Hemoglobin 11.8 g/dl (12.0-16.0); Lymphocyte % 14.9 %; Mean Corpuscular HGB Conc 35 g/dl (31-36); Mean Corpuscular Hemoglobin 35 pg (27-31); Mean Corpuscular Volume 99 fL (80-97); Mean Platelet Volume 9.7 fL (7.4-10.4); Nucleated Red Blood Cells % 0; Platelet Count 244 10^3/ul (150-450); Red Blood Count 3.42 10^6/ul (4.00-5.40); Red Cell Distribution Width 14 % (10.5-15); White Blood Count 14.5 10^3/ul (3.5-10.8)
--- NOTE | 2018-06-02 09:39 | HP ---
General Information - General Information Maternal Age: 27 Grav: 2 Para: 0 SAB: 0 IEA: 1 Estimated Due Date: 06/05/18 Determined By: Early Ultrasound Maternal Blood Type and Rh: O Positive - Results this Serology/RPR Result: Non-Reactive Rubella Result: Immune HBsAg Result: Negative HIV Result: Negative GBS Culture Result: Positive Past Medical History Delivery History: See Records - primiparous Pertinent Past Medical History: See Records - ulcerative colitis, IBS , anxiety, migraines Pertinent Past Surgical History: See Records - tonsillectomy, hammer toe correction, left wrist cyst removal Pertinent Family History: See Records - DM, HTN, depression - Antepartal Records Antepartal Records: Reviewed, Complicated by: - ulcerative colitis Review of Systems Constitutional: Comfortable CV Complaint: No Respiratory: Shortness of Breath: No Gastrointestinal: No Nausea/Vomiting, Normal Bowel Movement Genitourinary: Leaking Fluid, No Dysuria, No Bleeding Musculoskeletal: No Epigastric Pain, Contractions Neurological: No Headache, No Visual Changes Movement: Normal Exam Allergies/Adverse Reactions: Allergies latex Allergy (Verified 06/02/18 06:40) Rash Penicillins Allergy (Verified 06/02/18 06:40) Rash T-98.2, P-98, R-18, BP-110/69, O2-100% Lab Values - Entire Visit: Laboratory Tests 06/02/18 06/02/18 06/02/18 06:20 07:40 07:40 WBC 14.5 H RBC 3.42 L Hgb 11.8 L Hct 34 L MCV 99 H MCH 35 H MCHC 35 RDW 14 Plt Count 244 MPV 9.7 Neut % (Auto) 77.1 Lymph % (Auto) 14.9 [place] % (Auto) 7.3 Eos % (Auto) 0.3 Baso % (Auto) 0.4 Absolute Neuts (auto) 11.2 H Absolute Lymphs (auto) 2.2 Absolute Monos (auto) 1.1 H Absolute Eos (auto) 0 Absolute Basos (auto) 0.1 Absolute Nucleated RBC 0 Nucleated RBC % 0 Vag Amniotic Fld Detect Positive Blood Type O Positive Antibody Screen Negative - Measurements Height: 5 ft 3 in Weight: 89.358 kg Weight in lbs: 197.837031 Body Mass Index (BMI): 34.9 Pre- Weight: 71.214 kg Weight Gained This : 40 lbs and 0 ozs - Exam Breast: Breast Exam Deferred CVA: No CVA Tenderness Extremities: Edema - mild nonpitting pedal edema Heart: Normal Rhythm/Heart Sounds HEENT: No Significant Findings Lungs: Clear Bilaterally Rectal: Rectal Exam Deferred Reflexes: DTR 2+ Thyroid: No Thyromegaly - Abdominal Exam Abdomen Exam: Non-Tender, Fundal Height Consistent with Dates - Ultrasound/Biophysical Profile Ultrasound Status: Not Done Targeted Exam Findings See L&D Outpatient Visit Provider Note for Findings: Yes Estimated Weight: 8# Cervical Exam: 1cm - Exam by RN on arrival, further exam deferred at this time d /t ruptured membranes Presenting Part: Vertex Membrane Status: Leaking Amniotic Fluid Evaluation: Positive ROM Plus Bleeding/Discharge: None EFM Findings - External Monitor Findings Baseline Heart Rate: 135 External Monitor Findings: Accelerations Present, No Pattern of Variable or Late Decelerations, Variability Moderate, Baseline Stable Contractions: Regular, Mild, Moderate Contraction Frequency: 3 Assessment/Plan - Assessment 27 year old at 39 4/7 weeks gestation with ruptured membranes in early labor, GBS positive with PCN allergy, no evidence of acidemia. - Obstetrical Risk Factors Obstetrical Risk Factors: GBS Positive - Plan Plan: Antibiotic Prophylaxis, Admit - Anticipate Vaginal Delivery Plan Comment: Pt admitted to L&D and GBS prophylaxis initiated with Vancomycin as sensitivity testing not available. As pt is eduar will defer cervical exam for now and check in a few hours or if pt requests pain relief. - Date/Time of Admission Date of Admission: 06/02/18 Time of Admission: 07:02
--- NOTE | 2018-06-02 11:17 | PN ---
Progress Note - Progress Note Date of Service: 06/02/18 SOAP: Subjective: Pt still feeling contractions, but they have not increased much in strength. She was in the tub for a while and then ambulated in the halls. FOB at bedside. Objective: Cervical exam deferred FHR 140 by intermittent auscultation Vital signs stable UCs approx every 5 minutes, mild Still leaking clear fluid Vancomycin infused Assessment: 27 year old with ruptured membranes, GBS positive being treated with Vancomycin, in early labor, no evidence of acidemia Plan: Will check cervix in about an hour. If no/ minimal change, will recommend Pitocin augmentation Continue GBS prophylaxis Intermittent auscultation
--- NOTE | 2018-06-02 12:33 | PN ---
Progress Note - Progress Note Date of Service: 06/02/18 SOAP: Subjective: Pt remains comfortable, feels like ctx have spaced out. Still leaking some fluid but less. Objective: Cervix: 1cm/ posterior/ -2/ 80% FHR 135/ + accels/ no decels/ moderate variability UCs: 3-6 minutes, mild Vitals: afebrile, last BP 127/71 Assessment: Pt still in early labor with ruptured membranes, no change in cervical dilation from previous No evidence of acidemia Plan: Discussed options with pt. Will initiate Pitocin augmentation, low dose. Continuous EFM per protocol. Pt may ambulate, use tub as desired.
[2018-06-02] MEDS ORDERED: Oxytocin in LR* 20 UNITS/1,000 ML BAG IVPB SCH (13:00)
--- NOTE | 2018-06-02 15:42 | PN ---
Progress Note - Progress Note Date of Service: 06/02/18 SOAP: Subjective: Pt feeling more uncomfortable with contractions. Has been sitting in recliner, agreeable to trying some ambulation, upright positioning. Objective: Pitocin at 10 mu/min FHR baseline 135, + accels, no decels, moderate variability UCs 3-4 minutes, moderate intensity Assessment: Pt appears to be getting into more active labor No evidence of acidemia Plan: Continue Pitocin augmentation Continue GBS prophylaxis Will recheck cervix in a few hours or if pt desires pain relief.
[2018-06-02] MEDS ORDERED: fentaNYL* 50 MCG/ML 2 ML VIAL (100 MCG VIAL) IV SLOW PU ONE (17:21)
[2018-06-02] MEDS ORDERED: OBEPIDURAL* 250 ML EPIDURAL ONE (17:50)
--- NOTE | 2018-06-02 17:50 | PN ---
Progress Note - Progress Note Date of Service: 06/02/18 SOAP: Subjective: Pt very uncomfortable with ctx, moaning and breathing through them. Requests pain relief. Objective: Cervix: 1-2 cm/ 100%/ -1/ midline FHR: baseline 135/ moderate variability/ + accels/ no decels UC's: 2-3 minutes Assessment: Pt with more active ctx, cervix making some change but still early labor Plan: Administered IV Fentanyl 50 mcg. Pt did not experience any relief. Pt requests epidural. Will notify anesthesia.
[2018-06-02] MEDS ORDERED: Famotidine TAB* 20 MG PO PRN (18:31)
[2018-06-02] MEDS ORDERED: EPHEDrine (Pressors)* 50 MG/ML VIAL IV PUSH PRN (18:31)
[2018-06-02] MEDS ORDERED: Sodium Citrate/Citric Acid* 15 ML UDC PO PRN (18:31)
[2018-06-02] MEDS ORDERED: Phenylephrine IV* 40 MCG/ML 10 ML SYRINGE IV PUSH PRN (18:31)
[2018-06-02] MEDS ORDERED: OBEPIDURAL* 250 ML EPIDURAL SCH (19:00)
--- NOTE | 2018-06-02 19:17 | PN ---
Progress Note - Progress Note Date of Service: 06/02/18 SOAP: Subjective: Pt very comfortable with epidural. Tired, will try to sleep Objective: FHR 140, moderate variability, no decels, no accels UCs 2-5 minutes Cervical exam deferred Pitocin at 8 Assessment: Pt comfortable with epidural No evidence of acidemia Plan: Will defer cervical exam at this time, will recheck in a few hours or if pt feels urge to push. Continue Pitocin augmentation Continue GBS prophylaxis Encourage pt to sleep
--- NOTE | 2018-06-02 21:08 | PN ---
Progress Note - Progress Note Date of Service: 06/02/18 SOAP: Subjective: Pt currently appears to be sleeping. Per RN pt has been having difficulty relaxing and expressed feeling short of breath with the contractions. Objective: O2 sat 98% on room air. Afebrile- 98.2. FHR baseline 140, moderate variability, no accels, occasional brief variable decel. Pitocin at 8 mu/min UCs: Q 2-4 minutes, 60 seconds Assessment: Pt resting, comfortable with epidural. Sensation of shortness of breath, likely due to anxiety, will continue monitoring O2 sat for now. No evidence of acidemia. Plan: Continue Pitocin augmentation Encourage rest Will recheck cervix in a couple hours or if pt feels urge to push
[2018-06-02] MEDS ORDERED: diPHENhydraMINE PO* 50 MG PO PRN (23:06)
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
--- NOTE | 2018-06-03 01:29 | PN ---
Progress Note - Progress Note Date of Service: 06/03/18 SOAP: Subjective: Pt reports feeling more discomfort. Aware of ctx now. Reports lower abdominal pain and pressure with ctx. Pt appears calm, does not appear visibly distressed. She does state that ctx still feel much more comfortable than at the time she got epidural. Objective: FHR: 130 baseline, moderate variability, no accels, no decels UCs: 2-3 minutes Pitocin at 10 mu/min Cervix: 5-6 cm/ 100%/ -2 Assessment: 27 year old in active labor at 39 5/7 weeks gestation, receiving antibiotic prophylaxis for GBS, no evidence of acidemia. Plan: Pt instructed in use of bolus button. Pt to right side, will rotate side to side every 30 minutes to 1 hour. Continue Pitocin augmentation. Continue GBS prophylaxis.
--- NOTE | 2018-06-03 04:57 | PN ---
Progress Note - Progress Note Date of Service: 06/03/18 SOAP: Subjective: Pt slept for a couple hours, then called to report pressure, requested exam. Pt largely comfortable despite pressure. Still leaking clear fluid Objective: Cervix: 9cm/ 0 station/ 100%/ vtx FHR: Baseline 140/ moderate variability/ no accels/ no decels UCs: 2-3 minutes Pitocin at 18 mu/min Temp 99.1 Maternal HR 105 Assessment: 27 year old at 39 5/7 weeks gestation in active labor with membranes ruptured x23 hours, afebrile with mild tachycardia, no evidence of acidemia. Good progress since last exam. Plan: Continue Pitocin augmentation Continue GBS prophylaxis Use epidural bolus button as needed for relief of pain/ pressure Anticipate
--- NOTE | 2018-06-03 07:21 | PN ---
Progress Note - Progress Note Date of Service: 06/03/18 SOAP: Subjective: Pt very uncomfortable with a window of sharp pain on right lower quadrant. Pt expresses concerns about having the energy to push at this point. RN also reports that urine appears to be blood tinged, and output has decreased , still 30 cc/ hr. She spoke with pharmacist regarding Vancomycin and concerns about possible nephrotoxicity. Objective: Cervix: anterior lip, 100%, 0/ +1 station FHR: baseline 140/ moderate variability/ no accelerations/ early decelerations UCs: 2 minutes Temp: 98.8, Maternal HR: 110, BP:116/73 Assessment: 24 year old at 39 5/7 weeks gestation in active labor, uncomfortable, with no evidence of acidemia and decreased urine output. Plan: Will draw CMP to evaluate kidney function, continue IV hydration and closely monitor urine output. Will recheck cervix soon and initiate pushing if complete dilation. Continue Pitocin augmentation. Will discontinue Vancomycin and consider alternate antibiotic if pt not delivered at time next dosage due (1000).
[2018-06-03 07:48] LABS: EGFR Non-African American 80.2 (>60)
[2018-06-03] MEDS: Misoprostol TAB* 200 MCG ONE ×2 (10:20→10:31)
[2018-06-03] MEDS ORDERED: Misoprostol TAB* 200 MCG PR ONE (11:01)
[2018-06-03] MEDS ORDERED: Glycerin ADULT SUPP PR PRN (11:01)
--- NOTE | 2018-06-03 11:13 | PROCNOTE ---
[facility] OB: Delivery Note - Delivery A Date of : 06/03/18 Time of : 10:09 Goff Sex: Male - "Tay" Score 1 Minute: 9 Score 5 Minutes: 9 Gestational Age in Weeks and Days at Delivery: 39 Weeks and 5 Days Delivery Method: Spontaneous Vaginal Did Patient attempt ?: N/A, No Previous Amniotic Fluid: Clear Estimated Blood Loss: 400 Anesthesia/Analgesia: CEI for Labor Anesthesia Comment: Epidural placed by Dr. Gaspar. Bolused for repair by Dr. Echavarria Delivered By: Farhad Hill - Nursery Level of Nursery: Regular/Bedside - Perineum Perineal Injury: Vaginal Laceration - 6cm right sulcus tear. Repaired with 3-0 Vicryl under local infiltration 1% lidcaine and epidural analgesia Perineal Repair: By Delivering Practioner - Events Delivery Events of Note: Pitocin During Labor - for PROM in presence of GBS +, Supplemental O2 to Mother - with pushing due to maternal tachycardia up to 180bpm, Full Course of Antibiotics - for GBS prophylaxis, Post- Bleeding - Meds Given - 800mcg Cytotec per rectum x 1 and IV pitocin, Manual Removal of Placenta - from vaginal vault after cord avulsed. Velamentous cord insertion - Additional Delivery Notes Additional Delivery Notes: Pt admitted in early labor with PROM to clear fluid. Abx prophylaxis given for GBS prophylaxis. IV pitocin started which led to onset active labor with expected progression to complete. Length of labor 30 hours, 17 min (ROM > 24 hours). Pushed x 1 hour, 46 min. liveborn male. Slow, controlled delivery of head. OA to MARIELA. Shoulders followed with strong maternal push. vigorous with spontaneous cry. HR>110bpm. Delivered to maternal abdomen. Cord clamped x 2 and cut by FOB once pulsations ceased. After cord avulsion manual removal of placenta from vagina, appeared complete. Velamentous cord insertion noted. Fundus slow to firm to massage with IV pitocin infusing. 800mcg Cytotec per rectum x 1. Fundus firmed to massage and remained firm bleeding resolved. Due to poor pain control for repair anesthesia paged to bedside to bolus epidural. Once bolus in local infiltration 1% lidocaine given. Repair as above and pt tolerated well. EBL 400mL. At time of note mother and in stable condition. Planning to breast feed.
[2018-06-03] MEDS ORDERED: Oxytocin in LR* 20 UNITS/1,000 ML BAG IVPB SCH (12:00)
[2018-06-03] MEDS: Ibuprofen TAB* 600 MG PO PRN ×2 (12:05→18:35)
[2018-06-03] MEDS ORDERED: Simethicone TAB* 80 MG TAB.CHEW PO SCH (12:30)
[2018-06-03] MEDS: Docusate CAP* 100 MG PO SCH ×3 (14:00→20:29)
[2018-06-03] MEDS: Dibucaine 1% 28.35 GM TUBE PR PRN (18:35)
[2018-06-03] MEDS: Witch Hazel PAD* JAR TOPICAL PRN (18:35)
[2018-06-03] MEDS: Acetaminophen TAB* 325 MG PO PRN (20:29)
[2018-06-04] MEDS: Ibuprofen TAB* 600 MG PO PRN ×4 (00:17→20:12)
[2018-06-04] MEDS: Acetaminophen TAB* 325 MG PO PRN ×2 (00:18→06:35)
[2018-06-04 08:32] LABS: ABS Basophils 0.1 10^3/ul (0-0.2); ABS Eosinophils 0.1 10^3/ul (0-0.6); ABS Lymphocytes 2.9 10^3/ul (1.0-4.8); ABS Monocytes 0.9 10^3/ul (0-0.8); ABS Neutrophils 10.9 10^3/ul (1.5-7.7); ABS Nucleated RBC 0 10^3/ul; Eosinophil % 0.7 %; Hematocrit 24 % (35-47); Lymphocyte % 19.7 %; Mean Corpuscular HGB Conc 34 g/dl (31-36); Mean Corpuscular Hemoglobin 34 pg (27-31); Mean Corpuscular Volume 101 fL (80-97); Mean Platelet Volume 9.3 fL (7.4-10.4); Nucleated Red Blood Cells % 0; Platelet Count 187 10^3/ul (150-450); Red Blood Count 2.35 10^6/ul (4.00-5.40); Red Cell Distribution Width 14 % (10.5-15); White Blood Count 14.9 10^3/ul (3.5-10.8)
[2018-06-04] MEDS: Docusate CAP* 100 MG PO SCH ×3 (08:52→20:12)
[2018-06-04] MEDS: Ferrous Gluconate TAB* 324 MG TAB PO SCH ×2 (08:52→20:12)
[2018-06-04] MEDS: oxyCODONE/Acetamin 5/325 MG* TAB PO PRN (17:20)
[2018-06-04] MEDS: Witch Hazel PAD* JAR TOPICAL PRN (17:26)
[2018-06-04] MEDS: Dibucaine 1% 28.35 GM TUBE PR PRN (17:26)
[2018-06-05] MEDS: oxyCODONE/Acetamin 5/325 MG* TAB PO PRN (00:14)
[2018-06-05] MEDS: Ibuprofen TAB* 600 MG PO PRN ×2 (06:40→14:33)
[2018-06-05 08:20] LABS: Hematocrit 22 % (35-47); Hemoglobin 7.7 g/dl (12.0-16.0)
[2018-06-05] MEDS: Ferrous Gluconate TAB* 324 MG TAB PO SCH ×2 (10:12→19:57)
[2018-06-05] MEDS: Acetaminophen TAB* 325 MG PO PRN (10:12)
[2018-06-05] MEDS: Docusate CAP* 100 MG PO SCH ×3 (10:12→19:57)
[2018-06-05] MEDS: Dibucaine 1% 28.35 GM TUBE PR PRN (23:34)
[2018-06-06] MEDS: Ibuprofen TAB* 600 MG PO PRN ×2 (00:23→10:43)
[2018-06-06 10:06] VITALS: BP 127/84
[2018-06-06] MEDS: Docusate CAP* 100 MG PO SCH (10:42)
[2018-06-06] MEDS: Witch Hazel PAD* JAR TOPICAL PRN (10:42)
[2018-06-06] MEDS: Ferrous Gluconate TAB* 324 MG TAB PO SCH (10:42)
[2018-06-06] MEDS: Dibucaine 1% 28.35 GM TUBE PR PRN (10:42)
== END 2018-06-06 11:04 | disposition home or self-care (01) | DRG 560 ==
LOC: MCHOBOUT 06:00 → MCHOB 07:02
PROVIDERS: ADMIT Midwife; ATTEND Midwife
PROC: 10E0XZZ Delivery of Products of Conception, External Approach (ICD-10-PCS; principal; 2018-06-03)
PROC: 0KQM0ZZ Repair Perineum Muscle, Open Approach (ICD-10-PCS; 2018-06-03)
DX: O99.824 Streptococcus B carrier state complicating childbirth (principal); Z37.0 Single live birth; O71.4 Obstetric high vaginal laceration alone; O99.344 Other mental disorders complicating childbirth; F41.9 Anxiety disorder, unspecified; O72.0 Third-stage hemorrhage; O90.81 Anemia of the puerperium; D64.9 Anemia, unspecified; Z3A.39 39 weeks gestation of pregnancy
CPT/HCPCS: 36415; 80053; 84112; 85014; 85018; 85025; 86850; 86900; 86901; A9270-GY; J3010; J3370

== ENCOUNTER 2018-06-13 15:56 | Emergency (ER) | payer OTHER ==
[2018-06-13] MEDS ORDERED: Famotidine TAB* 20 MG PO ONE (16:24)
[2018-06-13] MEDS ORDERED: Al Hydrox/Mg Hydrox/Simet LIQ* 30 ML UDC PO ONE (16:24)
[2018-06-13] MEDS ORDERED: Lidocaine 2% VISCOUS* 15 ML UDC PO ONE (16:24)
--- NOTE | 2018-06-13 16:32 | ED ---
HPI Chest Pain - HPI Summary HPI Summary: This patient is a 27 year old F presenting to [facility] with a chief complaint of intermittent chest pain since 03:00 today. She is post- 10 days, delivering the baby at 9.2 lbs. She had vaginal tears during deliver and needed to get stitches, which was why she was prescribed Percocet for the pain. She took it at 17:00 yesterday. The patient rates the pain 8/10 in severity. Symptoms aggravated by sitting and standing up. Patient reports abdominal pain, left flank pain, and nausea. Patient denies urinary symptoms, fevers, coughing, and swelling in legs. Patient is breast-feeding her baby and has some spotty vaginal bleeding. She reports a PMHx of ulcerative colitis. She is a nonsmoker. - History of Current Complaint Chief Complaint: EDChestPainROMI Time Seen by Provider: 06/13/18 16:11 Hx Obtained From: Patient Hx Last Menstrual Period: 2015 Onset/Duration: Started Hours Ago - 03:00 today, Still Present Timing: Constant Current Severity: Severe Pain Intensity: 8 Pain Scale Used: 0-10 Numeric Chest Pain Radiates To:: Flank - Abdominal pain radiates to left flank Aggravating Factor(s): Position - Sitting, standing up Associated Signs and Symptoms: Positive: Nausea, Abdominal Pain - radiating to left flank pain. Negative: Fever, Cough, Other: - Urinary symptoms. Denies welling in the legs. - Allergy/Home Medications Allergies/Adverse Reactions: Allergies Allergy/AdvReac Type Severity Reaction Status Date / Time latex Allergy Intermediate Rash Verified 06/13/18 17:13 Penicillins Allergy Intermediate Rash Verified 06/13/18 17:13 PMH/Surg Hx/FS Hx/Imm Hx Endocrine/Hematology History: Reports: Hx Anemia Denies: Hx Anticoagulant Therapy, Hx Blood Disorders, Hx Blood Transfusions, Hx Bone Marrow Disease, Hx Diabetes, Hx Systemic Lupus Erythematosus, Hx Sickle Cell Disease, Hx Thyroid Disease, Hx Unexplained Bleeding Cardiovascular History: Reports: Other Cardiovascular Problems/Disorders - Tachy -admitted to [facility] on 08/30/13 Denies: Hx Aneurysm, Hx Angina, Hx Angioplasty, Hx Auto Implanted Cardiovert Defib, Hx Cardiac Arrest, Hx Cardiomegaly, Hx Congenital Heart Disease, Hx Congestive Heart Failure, Hx Coronary Artery Disease, Hx Deep Vein Thrombosis, Hx Embolism, Hx Hypercholesterolemia, Hx Hypotension, Hx Hypertension, Hx Pacemaker/ICD, Hx Peripheral Vascular Disease, Hx Rheumatic Fever, Hx Syncope, Hx Valvular Heart Disease Respiratory History: Reports: Hx Seasonal Allergies Denies: Hx Asthma, Hx Chronic Bronchitis, Hx Chronic Obstructive Pulmonary Disease (COPD), Hx Cystic Fibrosis, Hx Lung Cancer, Hx Pleural Effusion, Hx Pneumonia, Hx Pulmonary Edema, Hx Pulmonary Embolism, Hx Sleep Apnea GI History: Reports: Hx Irritable Bowel, Other GI Disorders - hx of pancreatitis, ulcerative colitis Denies: Hx Cirrhosis, Hx Crohn's Disease, Hx Diverticulosis, Hx Gall Bladder Disease, Hx Gastroesophageal Reflux Disease, Hx Gastrointestinal Bleed, Hx Hiatal Hernia, Hx Jaundice, Hx Obstructive Bowel, Hx Ileostomy, Hx Pyloric Stenosis, Hx Ulcer Sensory History: Reports: Hx Contacts or Glasses Denies: Hx Cataracts, Hx Eye Injury, Hx Eye Prosthesis, Hx Glaucoma, Hx Legally Blind, Hx Macular Degeneration, Hx Vision Problem, Hx Deafness, Hx Hearing Aid, Hx Hearing Problem, Other Sensory Impairments Opthamlomology History: Reports: Hx Contacts or Glasses Denies: Hx Cataracts, Hx Eye Injury, Hx Eye Prosthesis, Hx Glaucoma, Hx Legally Blind, Hx Macular Degeneration, Hx Vision Problem, Other Sensory Impairments Neurological History: Reports: Hx Headaches - after remicade infusions, Hx Migraine Denies: Hx Dementia, Hx Developmental Delay, Hx Nerve Disease, Hx Seizures, Hx Spinal Cord Injury, Hx Transient Ischemic Attacks (TIA) Psychiatric History: Denies: Hx Panic Disorder - Surgical History Surgery Procedure, Year, and Place: Hammer toe corrections, tear duct, cyst removed from left wrist, tonsillectomy Hx Anesthesia Reactions: No - Immunization History Date of Tetanus Vaccine: within 10 years Date of Influenza Vaccine: none Infectious Disease History: No Infectious Disease History: Denies: Hx Clostridium Difficile, Hx Hepatitis, Hx Human Immunodeficiency Virus (HIV), Hx of Known/Suspected MRSA, Hx Shingles, Hx Tuberculosis, Hx Known/ Suspected VRE, Hx Known/Suspected VRSA, History Other Infectious Disease, Traveled Outside the [place] in Last 30 Days - Family History Known Family History: Positive: Diabetes, Other - migraines Negative: Renal Disease, Respiratory Disease, Seizure Disorder - Social History Alcohol Use: Occasionally Alcohol Amount: None since 2016 Hx Substance Use: Yes Substance Use Type: Reports: Marijuana Substance Use Comment - Amount & Last Used: Occassional use Hx Tobacco Use: No Smoking Status (MU): Never Smoked Tobacco Review of Systems Negative: Fever Positive: Chest Pain Negative: Cough Positive: Abdominal Pain - radiating to left flank, Nausea Positive: no symptoms reported Negative: Other - swelling in legs All Other Systems Reviewed And Are Negative: Yes Physical Exam - Summary Physical Exam Summary: Appearance: Well appearing, no pain distress Skin: warm, dry, reflects adequate perfusion Head/face: normal Eyes: EOMI, [place] ENT: mucous membranes moist Neck: supple, non-tender Respiratory: CTA, breath sounds present Cardiovascular: RRR, pulses symmetrical Abdomen: non-tender, soft Bowel Sounds: present Musculoskeletal: normal, strength/ROM intact Neuro: normal, sensory motor intact, A&Ox3 Triage Information Reviewed: Yes Vital Signs On Initial Exam: Initial Vitals Temp Pulse Resp BP Pulse Ox 98.3 F 66 15 144/97 99 06/13/18 16:00 06/13/18 16:00 06/13/18 16:00 06/13/18 16:00 06/13/18 16:00 Vital Signs Reviewed: Yes Diagnostics - Vital Signs Vital Signs Temp Pulse Resp BP Pulse Ox 06/13/18 16:00 98.3 F 66 15 144/97 99 - Laboratory Result Diagrams: 06/13/18 16:37 06/13/18 16:37 Lab Statement: Any lab studies that have been ordered have been reviewed, and results considered in the medical decision making process. - Radiology Chest X-Ray Radiology Interpretation Completed By: Radiologist Summary of Radiographic Findings: 16:25. NO ACTIVE CARDIOPULMONARY DISEASE IS NOTED. ED Physician has reviewed this imaging report. - EKG 16:08 Cardiac Rate: NL - 65 BPM EKG Rhythm: Sinus Rhythm ST Segment: Normal Ectopy: None Re-Evaluation - Re-Evaluation 1 Re-Evaluation Time: 17:01 Change: Worse Comment: Patient reports sharp back pain to the nurse. 2 Re-Evaluation Time: 17:21 Change: Unchanged Comment: Patient reports thoracic, mid-back pain. She looks comfortable, talking on the phone. Her heart rate is 60bpm. 3 Re-Evaluation Time: 17:39 Change: Improved Comment: Appears to be more comfortable after receiving some medication. Chest Pain Course/Dx - Course Course Of Treatment: Nurse's note reviewed. Extremely well-appearing patient who is 10 days presents with GI discomfort/epigastric pain after starting Percocet. This was for vaginal tear that she is treating topically with lidocaine. There is some degree of mid back pain with a history of pancreatitis. CMP, lipase are normal. Urine is dirty appearing however the patient still has lochia. There is no bacteria seen. We will wait for culture to result. Her pain is controlled here with oral medications and a small dose of fentanyl. I we'll transition her off Percocet and replace that with tramadol. She should avoid ibuprofen, especially given her history of ulcerative colitis. Follow-up with PAPER RE[facility]ER/primary care physician. - Chest Pain Differential Diagnosis/HQI/PQRI: Other: - Gastritis, pancreatitis, gallbladder disease, pyelonephritis - Diagnoses Provider Diagnoses: Gastritis, Adverse effects of medication, Vaginal pain, Post-operative pain - Provider Notifications Discussed Care Of Patient With: Ravindra Christensen - [facility] Time Discussed With Above Provider: 18:06 Instructed by Provider To: Other - Agrees that not to provide antibiotics Discharge - Sign-Out/Discharge Documenting (check all that apply): Patient Departure - D/C - Discharge Plan Condition: Improved Disposition: HOME Prescriptions: Famotidine TAB* [Pepcid 20 MG TAB*] 20 mg PO BID #20 tab Sucralfate [Carafate] 1 gm PO ACHS #40 tablet traMADol TAB* [Ultram*] 50 mg PO Q8H PRN #12 tab MDD 3 PRN Reason: more intense pain Patient Education Materials: Your Baby (DC), Gastritis (ED) Referrals: Christine Moon MD [Primary Care Provider] - Additional Instructions: 1. Discontinue Percocet (oxycodone/APAP) 2. Avoid ibuprofen as best he can. This is not recommended for patients with ulcerative colitis. 3. Continue topical lidocaine 4. Only the pain medication such as Percocet and prescribed tramadol will be released in the breast milk, though in small amounts. Prescribed amount should not harm your baby 5. Call Friday morning to schedule prompt follow-up with your PAPER REELER. 6. Return with fever, difficulty urinating, worsening back pain, new symptoms or other concerns as discussed. 7. We will prescribe antibiotics if the urine culture is positive. 8. Sitz baths may help the vaginal tear pain. - Billing Disposition and Condition Condition: IMPROVED Disposition: Home - Attestation Statements Document Initiated by Micaela: Yes Documenting Scribe: Radames Koehler Provider For Whom Scribe is Documenting (Include Credential): Clarke Coleman MD Scribe Attestation: I, Radames Koehler, scribed for Clarke Coleman MD on 06/13/18 at 1810. Scribe Documentation Reviewed: Yes Provider Attestation: The documentation as recorded by the Radames walters accurately reflects the service I personally performed and the decisions made by me, Clarke Coleman MD Status of Scribe Document: Viewed
[2018-06-13 16:55] LABS: ABS Basophils 0 10^3/ul (0-0.2); ABS Eosinophils 0.1 10^3/ul (0-0.6); ABS Lymphocytes 2.1 10^3/ul (1.0-4.8); ABS Monocytes 0.7 10^3/ul (0-0.8); ABS Neutrophils 7.2 10^3/ul (1.5-7.7); ABS Nucleated RBC 0 10^3/ul; Eosinophil % 0.8 %; Hematocrit 31 % (35-47); Hemoglobin 10.6 g/dl (12.0-16.0); Lymphocyte % 20.7 %; Mean Corpuscular HGB Conc 34 g/dl (31-36); Mean Corpuscular Hemoglobin 33 pg (27-31); Mean Corpuscular Volume 98 fL (80-97); Mean Platelet Volume 7.4 fL (7.4-10.4); Nucleated Red Blood Cells % 0; Platelet Count 359 10^3/ul (150-450); Red Blood Count 3.17 10^6/ul (4.00-5.40); Red Cell Distribution Width 14 % (10.5-15); White Blood Count 10.1 10^3/ul (3.5-10.8)
[2018-06-13] MEDS ORDERED: fentaNYL* 50 MCG/ML 2 ML VIAL (100 MCG VIAL) IV SLOW PU ONE (17:02)
[2018-06-13 17:06] LABS: Albumin 3.8 g/dL (3.2-5.2); Albumin/Globulin Ratio 1.3 (1-3); BUN/Creatinine Ratio 16.7 (8-20); Calcium 8.8 mg/dL (8.6-10.3); EGFR Non-African American 95.8 (>60); Globulin 2.9 g/dL (2-4); Potassium 4.1 mmol/L (3.5-5.0); Total Bilirubin 0.5 mg/dL (0.2-1.0); Total Protein 6.7 g/dL (6.4-8.9)
[2018-06-13 17:41] LABS: C Reactive Protein 6.97 mg/L (<8.01)
[2018-06-13 17:46] LABS: Urine Appearance Cloudy; Urine Bacteria Absent (Absent); Urine Bilirubin Negative (Negative); Urine Blood 3+ (Negative); Urine Color Yellow; Urine Glucose Negative (Negative); Urine Ketones Negative (Negative); Urine Nitrite Negative (Negative); Urine Protein Negative (Negative); Urine Red Blood Cell 2+(6-10/hpf) (Absent); Urine Renal Epithelial Cells Present (Absent); Urine Specific Gravity 1.009 (1.010-1.030); Urine Urobilinogen Negative (Negative); Urine White Blood Cell 3+(>20/hpf) (Absent)
[2018-06-13] MEDS ORDERED: Lidocaine 2% JELLY* 6 ML JELLY TOPICAL ONE ×2 (18:19→18:23)
[2018-06-13 18:30] VITALS: BP 129/71
== END 2018-06-13 18:30 | disposition home or self-care (01) ==
LOC: ED 15:56
DX: K29.70 Gastritis, unspecified, without bleeding (principal); R10.2 Pelvic and perineal pain; R11.0 Nausea; T50.995A Adverse effect of other drugs, medicaments and biological substances, initial encounter; R10.84 Generalized abdominal pain; Z88.0 Allergy status to penicillin; R07.9 Chest pain, unspecified; G89.18 Other acute postprocedural pain; Y92.9 Unspecified place or not applicable; Z39.2 Encounter for routine postpartum follow-up
CPT/HCPCS: 36415; 71045; 80053; 81003; 81015; 83690; 85025; 86140; 87086; 93005; 96374; 99283; A9270-GY; J3010

== ENCOUNTER 2018-10-24 16:38 | Emergency (ER) | payer OTHER ==
[2018-10-24 17:05] VITALS: BP 122/83
[2018-10-24] MEDS ORDERED: Ketorolac INJ* 60 MG/2 ML VIAL IM ONE (17:25)
[2018-10-24] MEDS ORDERED: Cyclobenzaprine TAB* 10 MG PO ONE ×2 (17:25)
--- NOTE | 2018-10-24 17:46 | UC ---
Neck Pain HPI - HPI Summary HPI Summary: 1 WEEK OF LEFT-SIDED NECK PAIN THAT RADIATES DOWN HER BACK AND IS GIVING HER HEADACHE. STARTED AFTER SHE HAD AN INTENSE MASSAGE. TODAY SHE TOOK OFF HER HOODIE AND THE PAIN GOT WORSE. DENIES ANY OTHER INJURY OR TRAUMA. STATES SHE HAS ALSO BEEN SLEEPING AWKWARDLY SHE HAS A 4-MONTH-OLD AT HOME. - History of Current Complaint Chief Complaint: UCGeneralIllness Stated Complaint: NECK PAIN Time Seen by Provider: 10/24/18 17:09 Hx Obtained From: Patient, Family/Green House Manager - MOM Hx Last Menstrual Period: unknown Mechanism Of Injury: No Known Trauma Onset/Duration: Gradual Onset, Lasting Days, Still Present Severity: Moderate Pain Intensity: 9 Pain Scale Used: Adult Non Verbal Location: Discrete At: - LEFT TRAPEZIUS Character: Sharp, Aching Aggravating Factors: Movement Alleviating Factors: Nothing Associated Signs & Symptoms: Positive: Negative - Allergies/Home Medications Allergies/Adverse Reactions: Allergies Allergy/AdvReac Type Severity Reaction Status Date / Time latex Allergy Intermediate Rash Verified 10/24/18 17:05 Penicillins Allergy Intermediate Rash Verified 10/24/18 17:05 Home Medications: Home Medications Sertraline* [Zoloft*] 50 mg PO DAILY 10/24/18 [History Confirmed 10/24/18] PMH/Surg Hx/FS Hx/Imm Hx Other GI/ History: ULCERATIVE COLITIS Other History Of: Negative For: Anticoagulant Therapy - Surgical History Surgical History: Yes Surgery Procedure, Year, and Place: Hammer toe corrections, tear duct, cyst removed from left wrist, tonsillectomy - Family History Known Family History: Positive: Diabetes, Other - migraines Negative: Renal Disease, Respiratory Disease, Seizure Disorder - Social History Alcohol Use: Occasionally Alcohol Amount: None since 2016 Substance Use Type: None Substance Use Comment - Amount & Last Used: Occassional use Smoking Status (MU): Never Smoked Tobacco Household Exposure Type: Cigarettes - Immunization History Most Recent Influenza Vaccination: 03/27/18 Most Recent Tetanus Shot: 2006 Most Recent Pneumonia Vaccination: never Review of Systems All Other Systems Reviewed And Are Negative: Yes Constitutional: Positive: Negative Skin: Positive: Negative Respiratory: Positive: Negative Cardiovascular: Positive: Negative Gastrointestinal: Positive: Negative Musculoskeletal: Positive: Decreased ROM, Myalgia Physical Exam Triage Information Reviewed: Yes Appearance: Well-Nourished, Pain Distress - MODERATE Vital Signs: Initial Vital Signs Temp 98.1 F 10/24/18 16:59 Pulse 85 10/24/18 16:59 Resp 16 10/24/18 16:59 BP 122/83 10/24/18 16:59 Pulse Ox 97 10/24/18 16:59 Vital Signs Reviewed: Yes Eyes: Positive: Conjunctiva Clear ENT: Positive: Hearing grossly normal Neck: Positive: Supple, No Lymphadenopathy, Tenderness @ - LEFT TRAPEZIUS MUSCLE Respiratory: Positive: No respiratory distress, No accessory muscle use Cardiovascular: Positive: Pulses Normal Abdomen Description: Positive: Soft Musculoskeletal: Positive: No Edema, ROM Limited @ - NECK, Other: - TTP LEFT TRAPEZIUS MUSCLE Neurological: Positive: Alert Psychological: Positive: Age Appropriate Behavior Skin: Negative: Rashes Neck Pain Course/Dx - Differential Dx/Diagnosis Provider Diagnosis: Strain of left trapezius muscle Discharge - Sign-Out/Discharge Documenting (check all that apply): Patient Departure All imaging exams completed and their final reports reviewed: No Studies - Discharge Plan Condition: Stable Disposition: HOME Prescriptions: Cyclobenzaprine TAB* [Flexeril TAB*] 10 mg PO BID PRN #20 tab PRN Reason: Pain Patient Education Materials: Muscle Strain (ED) Forms: *Work Release Referrals: Christine Moon MD [Primary Care Provider] - If Needed Additional Instructions: YOU RECEIVED AN INJECTION OF 60MG TORADOL AND AN ORAL DOSE OF 10MG FLEXERIL WHILE HERE IN THE . YOUR SYMPTOMS ARE CONSISTENT WITH A STRAINED TRAPEZIUS MUSCLE. TAKE THE FLEXERIL TWICE DAILY NEEDED. USE OTC MEDICATIONS NEEDED FOR DISCOMFORT. APPLY HEAT, STRETCH AND GO THROUGH SLOW RANGE OF MOTION EXERCISES DAILY TO PREVENT STIFFENING UP AND MAKING THE DISCOMFORT WORSE. RECOMMEND YOU DISCARD YOUR PUMPED BREAST MILK WHILE YOU'RE TAKING FLEXERIL IT IS UNKNOWN IF THIS MEDICATION IS EXCRETED IN THE BREAST MILK. - Billing Disposition and Condition Condition: STABLE Disposition: Home
== END 2018-10-24 18:00 | disposition home or self-care (01) ==
LOC: UCEAST 16:38
DX: S46.912A Strain of unspecified muscle, fascia and tendon at shoulder and upper arm level, left arm, initial encounter (principal); X58.XXXA Exposure to other specified factors, initial encounter; Y92.9 Unspecified place or not applicable; Z88.0 Allergy status to penicillin; Z91.040 Latex allergy status
CPT/HCPCS: 96372; 99212; A9270-GY; G0463; J1885

== ENCOUNTER 2019-05-03 16:58 | Emergency (ER) | payer SELFPAY ==
--- NOTE | 2019-05-03 17:59 | UC ---
Cardiac HPI - HPI Summary HPI Summary: 28 yo female with the onset of left sided CP 3 days ago no cough no sob today she has felt weak and dizzy she has UC has had BRBPR x weeks not enough bleeding to make toilet bowel red - History of Current Complaint Chief Complaint: UCChestPain Stated Complaint: CHEST PAIN Time Seen by Provider: 05/03/19 17:00 Hx Obtained From: Patient Hx Last Menstrual Period: IUD Onset/Duration: Sudden Onset Initial Severity: Moderate Current Severity: Moderate Pain Intensity: 7 Chest Pain Location: Left Anterior Character: Tightness Aggravating Factor(s): Nothing Alleviating Factor(s): Nothing Associated Signs & Symptoms: Positive: Chest Pain, Dizziness. Negative: SOB, Swelling, Syncope, Fever, Diaphoresis, Nausea/Vomiting, Palpitations, Cough, Hemoptysis, Back Pain, Abdominal Pain, Calf Pain/Swelling - Allergy/Home Medications Allergies/Adverse Reactions: Allergies Allergy/AdvReac Type Severity Reaction Status Date / Time latex Allergy Intermediate Rash Verified 05/03/19 17:13 Penicillins Allergy Intermediate Rash Verified 05/03/19 17:13 Home Medications: Home Medications ALPRAZolam TAB* [Xanax TAB*] 2 tab PO BID 05/03/19 [History Confirmed 05/03/19] Bupropion XL* [Wellbutrin XL *] 1 tab PO DAILY WITH MEAL 05/03/19 [History Confirmed 05/03/19] Desvenlafaxine Succinate [Pristiq] 1 tab PO DAILY 05/03/19 [History Confirmed ] Mesalamine [Apriso] 1 cap PO DAILY 05/03/19 [History Confirmed 05/03/19] Prazosin CAP* [Minipress CAP*] 1 cap PO BEDTIME 05/03/19 [History Confirmed 05/11] PMH/Surg Hx/FS Hx/Imm Hx Previously Healthy: Yes Cardiovascular History: Hypertension GI/ History: Other Other GI/ History: UC/pancreatitis Other History Of: Negative For: Anticoagulant Therapy - Surgical History Surgical History: Yes Surgery Procedure, Year, and Place: Hammer toe corrections, tear duct, cyst removed from left wrist, tonsillectomy - Family History Known Family History: Positive: Diabetes, Other - migraines Negative: Renal Disease, Respiratory Disease, Seizure Disorder - Social History Alcohol Use: Occasionally Alcohol Amount: None since 2016 Substance Use Type: None Substance Use Comment - Amount & Last Used: Occassional use Smoking Status (MU): Never Smoked Tobacco Household Exposure Type: Cigarettes - Immunization History Most Recent Influenza Vaccination: 03/27/18 Most Recent Tetanus Shot: 2006 Most Recent Pneumonia Vaccination: never Review of Systems All Other Systems Reviewed And Are Negative: Yes Constitutional: Positive: Fatigue Skin: Positive: Negative Eyes: Positive: Negative ENT: Positive: Negative Respiratory: Positive: Negative Cardiovascular: Positive: Chest Pain Gastrointestinal: Positive: Other - BRBPR x weeks Genitourinary: Positive: Negative Motor: Positive: Negative Neurovascular: Positive: Negative Musculoskeletal: Positive: Negative Neurological: Positive: Negative Psychological: Positive: Negative Physical Exam Triage Information Reviewed: Yes Appearance: Well-Appearing, No Pain Distress, Well-Nourished Vital Signs: Initial Vital Signs Temp 97.6 F 05/03/19 17:02 Pulse 83 05/03/19 17:02 Resp 16 05/03/19 17:02 BP 138/84 05/03/19 17:02 Pulse Ox 100 05/03/19 17:02 Vital Signs Reviewed: Yes Eyes: Positive: Conjunctiva Clear ENT: Positive: Hearing grossly normal. Negative: Nasal congestion, Nasal drainage, Tonsillar swelling, Tonsillar exudate, Trismus, Muffled voice, Dental tenderness Dental Exam: Normal Neck: Positive: Supple, Nontender, No Lymphadenopathy Respiratory: Positive: Lungs clear, Normal breath sounds, No respiratory distress, No accessory muscle use Cardiovascular: Positive: RRR, No Murmur Abdomen Description: Positive: Nontender, No Organomegaly, Soft. Negative: CVA Tenderness (R), CVA Tenderness (L) Bowel Sounds: Positive: Present Musculoskeletal: Positive: ROM Intact, No Edema Neurological: Positive: Alert Psychological Exam: Normal Skin Exam: Normal Diagnostics - Radiology No standard instances Radiology Interpretation Completed By: Radiologist Summary of Radiographic Findings: CXR : NAD - EKG Cardiac Rate: NL Cardiac Rhythm: Sinus: Normal Ectopy: None ST Segment: Normal - Assessment/Plan Course Of Treatment: not orthostatic - Clinical Impression Provider Diagnosis: Chest pain of unknown etiology, Rectal bleeding Discharge ED - Sign-Out/Discharge Documenting (check all that apply): Patient Departure All imaging exams completed and their final reports reviewed: Yes - Discharge Plan Condition: Stable Disposition: HOME Patient Education Materials: Chest Pain (ED), Rectal Bleeding (ED) Referrals: Christine Moon MD [Primary Care Provider] - As Soon As Possible (recheck in 1-2 days) Additional Instructions: blood work pending I suggest you call your gi specialist to discuss your 3 week hx of rectal bleeding To ER for new or worsening symptoms: increased bleeding/adb pain/fever/ shortness of breath - Billing Disposition and Condition Condition: STABLE Disposition: Home
[2019-05-03 18:07] VITALS: BP 122/74
[2019-05-04 11:21] LABS: ABS Eosinophils 0.1 10^3/ul (0-0.6); ABS Lymphocytes 2.3 10^3/ul (1.0-4.8); ABS Monocytes 0.6 10^3/ul (0-0.8); ABS Neutrophils 4.6 10^3/ul (1.5-7.7); Eosinophil % 0.9 %; Hematocrit 32 % (35-47); Hemoglobin 11.7 g/dL (12.0-16.0); Lymphocyte % 30.9 %; Mean Corpuscular HGB Conc 36 g/dL (31-36); Mean Corpuscular Hemoglobin 36 pg (27-31); Mean Corpuscular Volume 99 fL (80-97); Mean Platelet Volume 8.6 fL (7.4-10.4); Nucleated Red Blood Cells % 0.1; Platelet Count 259 10^3/uL (150-450); Red Blood Count 3.26 10^6 /uL (3.70-4.87); Red Cell Distribution Width 13 % (10-15); White Blood Count 7.6 10^3/uL (3.5-10.8)
[2019-05-04 11:48] LABS: Albumin 4.5 g/dL (3.2-5.2); Albumin/Globulin Ratio 1.9 (1-3); BUN/Creatinine Ratio 22.5 (8-20); Calcium 9.8 mg/dL (8.6-10.3); EGFR African American 101.9 (>60); EGFR Non-African American 84.2 (>60); Globulin 2.4 g/dL (2-4); Potassium 4.6 mmol/L (3.5-5.0); Total Bilirubin 0.2 mg/dL (0.2-1.0); Total Protein 6.9 g/dL (6.4-8.9)
--- NOTE | 2019-05-04 15:47 | UC ---
- Progress Note Progress Note: Labs with mild anemia otherwise normal. Recommend f/u with PCP Course/Dx - Diagnoses Provider Diagnoses: Chest pain of unknown etiology, Rectal bleeding Discharge ED - Sign-Out/Discharge Documenting (check all that apply): Post-Discharge Follow Up All imaging exams completed and their final reports reviewed: Yes - Discharge Plan Condition: Stable Disposition: HOME Patient Education Materials: Chest Pain (ED), Rectal Bleeding (ED) Referrals: Christine Moon MD [Primary Care Provider] - As Soon As Possible (recheck in 1-2 days) Additional Instructions: blood work pending I suggest you call your gi specialist to discuss your 3 week hx of rectal bleeding To ER for new or worsening symptoms: increased bleeding/adb pain/fever/ shortness of breath - Billing Disposition and Condition Condition: STABLE Disposition: Home
== END 2019-05-03 18:36 | disposition home or self-care (01) ==
LOC: UCEAST 16:58
DX: R07.89 Other chest pain (principal); K62.5 Hemorrhage of anus and rectum; R42 Dizziness and giddiness; I10 Essential (primary) hypertension; Z88.0 Allergy status to penicillin; Z91.040 Latex allergy status
CPT/HCPCS: 36415; 71046; 80053; 83690; 85025; 93005; 99212; G0463

== ENCOUNTER 2019-05-30 10:21 | Emergency (ER) | payer OTHER ==
[2019-05-30] MEDS ORDERED: NS 0.9% 1000 ML** 1,000 ML IV ONE (13:21)
[2019-05-30 13:50] LABS: ABS Eosinophils 0.1 10^3/ul (0-0.6); ABS Lymphocytes 2.3 10^3/ul (1.0-4.8); ABS Monocytes 0.5 10^3/ul (0-0.8); ABS Neutrophils 3.6 10^3/ul (1.5-7.7); Hematocrit 35 % (35-47); Hemoglobin 12.1 g/dL (12.0-16.0); Lymphocyte % 35.3 %; Mean Corpuscular HGB Conc 34 g/dL (31-36); Mean Corpuscular Hemoglobin 32 pg (27-31); Mean Corpuscular Volume 94 fL (80-97); Mean Platelet Volume 7.6 fL (7.4-10.4); Nucleated Red Blood Cells % 0.1; Platelet Count 260 10^3/uL (150-450); Red Blood Count 3.77 10^6 /uL (3.70-4.87); Red Cell Distribution Width 13 % (10-15); White Blood Count 6.4 10^3/uL (3.5-10.8)
[2019-05-30 14:06] LABS: ALT 16 U/L (7-52); AST 15 U/L (13-39); Albumin 3.4 g/dL (3.2-5.2); Alkaline Phosphatase 74 U/L (34-104); Anion Gap 5 mmol/L (2-11); BUN/Creatinine Ratio 18.2 (8-20); Blood Urea Nitrogen 12 mg/dL (6-24); CO2 Carbon Dioxide 26 mmol/L (22-32); Calcium 9.2 mg/dL (8.6-10.3); Chloride 106 mmol/L (101-111); EGFR African American 127.2 (>60); EGFR Non-African American 105.2 (>60); Globulin 3.4 g/dL (2-4); Glucose 95 mg/dL (70-100); Potassium 4.6 mmol/L (3.5-5.0); Sodium 137 mmol/L (135-145); Total Protein 6.8 g/dL (6.4-8.9)
[2019-05-30 14:13] LABS: HCG Pregnancy < 0.60 mIU/mL
--- NOTE | 2019-05-30 14:19 | ED ---
Abdominal Pain/Female - HPI Summary HPI Summary: The patient is a 28 y/o F presenting to [facility] with a chief complaint of ulcerative colitis flare-up with sharp suprapubic abdominal pain and fluttering palpitations onset two months ago with worsening over the last three weeks. She reports that at initial onset, she visited her GI specialist at [place], who prescribed her Apriso PO in addition to suppositories that she uses as needed. She has been consistently experiencing dmirti blood from the rectum as well as with passing stool, occurring every time she goes to the bathroom. The associated abdominal pain is aggravated with eating. She endorses nausea without vomiting, decreased oral intake, fatigue, and lightheadedness. She additionally notes mid-sternal CP and fluttering palpitations and tachycardia at 142 BPM at home, which occasional occur with the Crohns flare-ups, but the symptoms are more prevalent than usual and aggravated with standing or exertion. Currently, she rates the symptoms 7/10 in severity. She has not recently taken any steroids. PMHx: anemia, tachycardia, pancreatitis, ulcerative colitis, IBS. Nonsmoker, occasional EtOH, no substance use. Medications reviewed. Allergies noted. - History of Current Complaint Chief Complaint: EDAbdPain Stated Complaint: CHEST PAIN/VOMITING PER PT Time Seen by Provider: 05/30/19 13:19 Hx Obtained From: Patient Hx Last Menstrual Period: IUD Onset/Duration: Gradual Onset, Lasting Weeks - 3, Still Present Timing: Weeks Severity Initially: Mild Severity Currently: Moderate Pain Intensity: 7 Pain Scale Used: 0-10 Numeric Location: Suprapubic Radiates: No Character: Sharp Aggravating Factor(s): Food, Other: - standing and exertion worsen CP and fluttering Alleviating Factor(s): NPO, Other: - rest Associated Signs and Symptoms: Positive: Chest Pain - mid-sternal, Blood in Stool, Decreased Appetite, Nausea, Diarrhea, Other: - dmitri blood from rectum, fatigue, lightheadedness. Negative: Vomiting Allergies/Adverse Reactions: Allergies Allergy/AdvReac Type Severity Reaction Status Date / Time latex Allergy Intermediate Rash Verified 05/03/19 17:13 Penicillins Allergy Intermediate Rash Verified 05/03/19 17:13 Home Medications: Home Medications Prazosin CAP* [Minipress CAP*] 5 mg PO DAILY 05/30/19 [History Confirmed ] Quetiapine Fumarate [Quetiapine 100 mg] 50 mg PO DAILY 05/30/19 [History Confirmed 05/30/19] PMH/Surg Hx/FS Hx/Imm Hx Endocrine/Hematology History: Reports: Hx Anemia Denies: Hx Anticoagulant Therapy, Hx Blood Disorders, Hx Blood Transfusions, Hx Bone Marrow Disease, Hx Diabetes, Hx Systemic Lupus Erythematosus, Hx Sickle Cell Disease, Hx Thyroid Disease, Hx Unexplained Bleeding Cardiovascular History: Reports: Other Cardiovascular Problems/Disorders - Tachy -admitted [facility] on 08/30/13 Denies: Hx Aneurysm, Hx Angina, Hx Angioplasty, Hx Auto Implanted Cardiovert Defib, Hx Cardiac Arrest, Hx Cardiomegaly, Hx Congenital Heart Disease, Hx Congestive Heart Failure, Hx Coronary Artery Disease, Hx Deep Vein Thrombosis, Hx Embolism, Hx Hypercholesterolemia, Hx Hypotension, Hx Hypertension, Hx Pacemaker/ICD, Hx Peripheral Vascular Disease, Hx Rheumatic Fever, Hx Syncope, Hx Valvular Heart Disease Respiratory History: Reports: Hx Seasonal Allergies Denies: Hx Asthma, Hx Chronic Bronchitis, Hx Chronic Obstructive Pulmonary Disease (COPD), Hx Cystic Fibrosis, Hx Lung Cancer, Hx Pleural Effusion, Hx Pneumonia, Hx Pulmonary Edema, Hx Pulmonary Embolism, Hx Sleep Apnea GI History: Reports: Hx Irritable Bowel, Other GI Disorders - hx of pancreatitis, ulcerative colitis Denies: Hx Cirrhosis, Hx Crohn's Disease, Hx Diverticulosis, Hx Gall Bladder Disease, Hx Gastroesophageal Reflux Disease, Hx Gastrointestinal Bleed, Hx Hiatal Hernia, Hx Jaundice, Hx Obstructive Bowel, Hx Ileostomy, Hx Pyloric Stenosis, Hx Ulcer Sensory History: Reports: Hx Contacts or Glasses Denies: Hx Cataracts, Hx Eye Injury, Hx Eye Prosthesis, Hx Glaucoma, Hx Legally Blind, Hx Macular Degeneration, Hx Vision Problem, Hx Deafness, Hx Hearing Aid, Hx Hearing Problem, Other Sensory Impairments Opthamlomology History: Reports: Hx Contacts or Glasses Denies: Hx Cataracts, Hx Eye Injury, Hx Eye Prosthesis, Hx Glaucoma, Hx Legally Blind, Hx Macular Degeneration, Hx Vision Problem, Other Sensory Impairments Neurological History: Reports: Hx Headaches - after remicade infusions, Hx Migraine Denies: Hx Dementia, Hx Developmental Delay, Hx Nerve Disease, Hx Seizures, Hx Spinal Cord Injury, Hx Transient Ischemic Attacks (TIA) Psychiatric History: Denies: Hx Panic Disorder - Surgical History Surgical History: Yes Surgery Procedure, Year, and Place: Hammer toe corrections, tear duct, cyst removed from left wrist, tonsillectomy Hx Anesthesia Reactions: No - Immunization History Date of Tetanus Vaccine: within 10 years Date of Influenza Vaccine: none Infectious Disease History: No Infectious Disease History: Denies: Hx Clostridium Difficile, Hx Hepatitis, Hx Human Immunodeficiency Virus (HIV), Hx of Known/Suspected MRSA, Hx Shingles, Hx Tuberculosis, Hx Known/ Suspected VRE, Hx Known/Suspected VRSA, History Other Infectious Disease, Traveled Outside the [place] in Last 30 Days - Family History Known Family History: Positive: Diabetes, Other - migraines Negative: Renal Disease, Respiratory Disease, Seizure Disorder - Social History Alcohol Use: Occasionally Alcohol Amount: None since 2016 Hx Substance Use: Yes Substance Use Type: Reports: None Substance Use Comment - Amount & Last Used: Occassional use Hx Tobacco Use: No Smoking Status (MU): Never Smoked Tobacco Review of Systems Positive: Fatigue Positive: Palpitations - fluttering, Chest Pain - mid-sternal Positive: Abdominal Pain - suprapubic, Diarrhea, Nausea, Other - blood with stool, decreased oral intake. Negative: Vomiting Neurological: Other - lightheadedness All Other Systems Reviewed And Are Negative: Yes Physical Exam - Summary Physical Exam Summary: Constitutional: Well-developed, Well-nourished, Alert. (-) Distressed Skin: Warm, Dry HENT: Normocephalic; Atraumatic Eyes: Conjunctiva normal Neck: Musculoskeletal ROM normal neck. (-) JVD, (-) Stridor, (-) Nuchal rigidity Cardio: Rhythm regular, rate normal, Heart sounds normal; Intact distal pulses; Radial pulses are 2+ and symmetric. (-) Murmur Pulmonary/Chest wall: Effort normal. (-) Respiratory distress, (-) Wheezes, (-) Rales Abd: Soft, (-) tenderness, (-) Distension, (-) Guarding, (-) Rebound Musculoskeletal: (-) Edema Lymph: (-) Cervical adenopathy Neuro: Alert, Oriented x3 Psych: Mood and affect Normal Triage Information Reviewed: Yes Vital Signs On Initial Exam: Initial Vitals Temp Pulse Resp BP Pulse Ox 97.3 F 90 16 123/76 100 05/30/19 10:28 05/30/19 10:28 05/30/19 10:28 05/30/19 10:28 05/30/19 10:28 Vital Signs Reviewed: Yes Procedures - Sedation Patient Received Moderate/Deep Sedation with Procedure: No Diagnostics - Vital Signs Vital Signs Temp Pulse Resp BP Pulse Ox 05/30/19 14:00 80 98 05/30/19 13:55 84 99/76 98 05/30/19 13:25 82 122/88 99 05/30/19 11:44 98.6 F 84 16 118/77 98 05/30/19 10:28 97.3 F 90 16 123/76 100 - Laboratory Lab Results: Lab Results 05/30/19 05/30/19 Range/Units 13:42 13:42 WBC 6.4 (3.5-10.8) 10^3/uL RBC 3.77 (3.70-4.87) 10^6 /uL Hgb 12.1 (12.0-16.0) g/dL Hct 35 (35-47) % MCV 94 (80-97) fL MCH 32 H (27-31) pg MCHC 34 (31-36) g/dL RDW 13 (10-15) % Plt Count 260 (150-450) 10^3/uL MPV 7.6 (7.4-10.4) fL Neut % (Auto) 56.2 % Lymph % (Auto) 35.3 % [place] % (Auto) 7.1 % Eos % (Auto) 1.0 % Baso % (Auto) 0.4 % Absolute Neuts (auto) 3.6 (1.5-7.7) 10^3/ul Absolute Lymphs (auto) 2.3 (1.0-4.8) 10^3/ul Absolute Monos (auto) 0.5 (0-0.8) 10^3/ul Absolute Eos (auto) 0.1 (0-0.6) 10^3/ul Absolute Basos (auto) 0.0 (0-0.2) 10^3/ul Absolute Nucleated RBC 0.0 10^3/ul Nucleated RBC % 0.1 Sodium 137 (135-145) mmol/L Potassium 4.6 (3.5-5.0) mmol/L Chloride 106 (101-111) mmol/L Carbon Dioxide 26 (22-32) mmol/L Anion Gap 5 (2-11) mmol/L BUN 12 (6-24) mg/dL Creatinine 0.66 (0.51-0.95) mg/dL Est GFR ( Amer) 127.2 (>60) Est GFR (Non-Af Amer) 105.2 (>60) BUN/Creatinine Ratio 18.2 (8-20) Glucose 95 (70-100) mg/dL Calcium 9.2 (8.6-10.3) mg/dL Total Bilirubin 0.30 (0.2-1.0) mg/dL AST 15 (13-39) U/L ALT 16 (7-52) U/L Alkaline Phosphatase 74 (34-104) U/L Total Protein 6.8 (6.4-8.9) g/dL Albumin 3.4 (3.2-5.2) g/dL Globulin 3.4 (2-4) g/dL Albumin/Globulin Ratio 1.0 (1-3) Beta HCG, Quant Pending Result Diagrams: 05/30/19 13:42 05/30/19 13:42 Lab Statement: Any lab studies that have been ordered have been reviewed, and results considered in the medical decision making process. - EKG 1410 Cardiac Rate: NL - 70 BPM EKG Rhythm: Sinus Rhythm EKG Comparison: No Significant Change - Similar to previous taken today at 1022. Summary of EKG Findings: An EKG at 1410 reveals normal sinus rhythm at 70 BPM, nml axis, nml intervals. T wave inversions in V1. No STEMI. ED physician has reviewed and interpreted this EKG. 1022 Cardiac Rate: NL - 93 BPM EKG Rhythm: Sinus Rhythm Summary of EKG Findings: An EKG at 1022 reveals normal sinus rhythm at 93 BPM, nml axis, nml intervals. T wave inversions in V1. No STEMI. ED physician has reviewed and interpreted this EKG. Re-Evaluation - Re-Evaluation First Eval Re-Evaluation Time: 15:34 Change: Improved Comment: We discussed plan for discharge following GI consult. Abdominal Pain Fem Course/Dx - Course Course Of Treatment: 28 y/o F w hx of UC p/w bloody BM and fatigue over 1 month. - VSS NAD, PE w mild tenderness. - regarding palpitations - HR here sinus, EKG unremarkable. electrolytes and hemoglobin stable. Trop neg. - given IVF, CBC w stable Hb, no e/o infection. Tolerating PO. - d/w GI, recommends prednisone 30 mg daily x1 week, follow up w her GI at [place]. - Diagnoses Provider Diagnoses: Ulcerative colitis, chronic - Provider Notifications Discussed Care Of Patient With: Riki Peterson - gastroenterology Time Discussed With Above Provider: 15:25 Instructed by Provider To: Other - I discussed the patient's case with Dr. Peterson, and he recommends a short course of steroids for a week with follow up in [place]. Discharge ED - Sign-Out/Discharge Documenting (check all that apply): Patient Departure - Patient will be discharged home. - Discharge Plan Condition: Stable Disposition: HOME Prescriptions: predniSONE TAB* [Deltasone 10 MG TAB*] 30 mg PO DAILY 6 Days #18 tab Patient Education Materials: Ulcerative Colitis (ED) Referrals: Christine Moon MD [Primary Care Provider] - 3 Days Additional Instructions: You were seen in the emergency department for ulcerative colitis flare. Please take prednisone for 7 days. Please call your credit compliance officer and let them know you were seen here. If any studies were not completed at the time of discharge you will be called with the relevant results. Please follow up with your primary care doctor in the next 2-3 days and return to the emergency department for worsening pain, fevers, or concerning symptoms. It was a pleasure taking care of you today. - Billing Disposition and Condition Condition: STABLE Disposition: Home - Attestation Statements Document Initiated by Micaela: Yes Documenting Scribe: Mindy Segura Provider For Whom Micaela is Documenting (Include Credential): Dr. Ana Bradley MD Scribe Attestation: I, Mindy Segura scribed for Dr. Ana Bradley MD on 05/30/19 at 1546. Scribe Documentation Reviewed: Yes Provider Attestation: The documentation as recorded by the Mindy walters accurately reflects the service I personally performed and the decisions made by me, Dr. Ana Bradley MD Status of Micaela Document: Viewed
[2019-05-30] MEDS ORDERED: predniSONE TAB* 10 MG PO ONE (15:25)
[2019-05-30 15:50] VITALS: BP 105/75
== END 2019-05-30 15:51 | disposition home or self-care (01) ==
LOC: ED 10:21
DX: K51.90 Ulcerative colitis, unspecified, without complications (principal); R11.0 Nausea; R07.2 Precordial pain; R53.83 Other fatigue; R42 Dizziness and giddiness; R00.2 Palpitations; Z88.0 Allergy status to penicillin; Z91.040 Latex allergy status
CPT/HCPCS: 36415; 80053; 84484; 84702; 85025; 93005; 96360; 99283; J7512

== ENCOUNTER 2019-07-19 15:51 | Emergency (ER) | payer OTHER ==
[2019-07-19 18:04] LABS: ABS Eosinophils 0.1 10^3/ul (0-0.6); ABS Lymphocytes 2.4 10^3/ul (1.0-4.8); ABS Monocytes 0.6 10^3/ul (0-0.8); ABS Neutrophils 3.8 10^3/ul (1.5-7.7); Eosinophil % 0.9 %; Hematocrit 35 % (35-47); Lymphocyte % 34.7 %; Mean Corpuscular HGB Conc 35 g/dL (31-36); Mean Corpuscular Hemoglobin 32 pg (27-31); Mean Corpuscular Volume 93 fL (80-97); Mean Platelet Volume 8.2 fL (7.4-10.4); Nucleated Red Blood Cells % 0.1; Platelet Count 303 10^3/uL (150-450); Red Blood Count 3.72 10^6 /uL (3.70-4.87); Red Cell Distribution Width 13 % (10-15)
[2019-07-19 18:23] LABS: ALT 17 U/L (7-52); AST 16 U/L (13-39); Albumin 4.2 g/dL (3.2-5.2); Albumin/Globulin Ratio 1.4 (1-3); Alkaline Phosphatase 64 U/L (34-104); Anion Gap 5 mmol/L (2-11); BUN/Creatinine Ratio 19.7 (8-20); Blood Urea Nitrogen 15 mg/dL (6-24); C Reactive Protein 2.93 mg/L (<8.01); CO2 Carbon Dioxide 27 mmol/L (22-32); Calcium 9.5 mg/dL (8.6-10.3); Chloride 106 mmol/L (101-111); EGFR African American 108.1 (>60); EGFR Non-African American 89.4 (>60); Glucose 91 mg/dL (70-100); Potassium 4.3 mmol/L (3.5-5.0); Sodium 138 mmol/L (135-145); Total Protein 7.2 g/dL (6.4-8.9)
[2019-07-19 18:29] LABS: HCG Pregnancy < 0.60 mIU/mL
[2019-07-19 18:41] VITALS: BP 131/83
== END 2019-07-19 18:42 | disposition left against medical advice (07) ==
LOC: ED 15:51
DX: Z53.21 Procedure and treatment not carried out due to patient leaving prior to being seen by health care provider (principal); R10.9 Unspecified abdominal pain
CPT/HCPCS: 36415; 80053; 83605; 83690; 84702; 85025; 86140; 99282

== ENCOUNTER 2019-07-20 08:31 | Emergency (ER) | payer OTHER ==
--- NOTE | 2019-07-20 09:06 | ED ---
Abdominal Pain/Female - HPI Summary HPI Summary: 28 year old F arriving via private car complains of worsening intermittent left lower abdominal pain for a few months. Hx ulcerative colitis. Sees GI at [facility]. Has been on prednisone in the past with some relief. Patient is working with her insurance to have medication change. She has not had any medications for 3 weeks. Patient reports blood in stools, low grade fever, nausea, light headedness. No vomiting, vaginal discharge. Has an IUD. Hasn't had menstrual period in years. Pain rated 7/10 in severity. Symptoms aggravated by nothing. Symptoms alleviated by nothing. Medications reviewed. Allergies noted. No cardiac hx. No diabetes. No abdominal surgical hx. - History of Current Complaint Chief Complaint: EDAbdPain Stated Complaint: ABDOMINAL PAIN AND VAGINAL BLEEDING PER PT Time Seen by Provider: 07/20/19 09:00 Hx Obtained From: Patient Hx Last Menstrual Period: IUD Onset/Duration: Lasting Weeks, Still Present, Worse Since - today 07/20/2019 Timing: Intermittent Episode Lasting Severity Currently: Moderate Pain Intensity: 7 Pain Scale Used: 0-10 Numeric Location: Discrete At: LLQ Aggravating Factor(s): Nothing Alleviating Factor(s): Nothing Associated Signs and Symptoms: Positive: Negative - vomiting, vaginal discharge , Other: - blood in stools, low grade fever, nausea, light headedness Allergies/Adverse Reactions: Allergies Allergy/AdvReac Type Severity Reaction Status Date / Time latex Allergy Intermediate Rash Verified 07/19/19 16:13 Penicillins Allergy Intermediate Rash Verified 07/19/19 16:13 Home Medications: Home Medications Azithromycin 500 mg PO DAILY 07/20/19 [History Confirmed 07/20/19] Dicyclomine CAP* [Bentyl CAP*] 20 mg PO QID 07/20/19 [History Confirmed 07/20/19 ] PMH/Surg Hx/FS Hx/Imm Hx Endocrine/Hematology History: Reports: Hx Anemia Denies: Hx Anticoagulant Therapy, Hx Blood Disorders, Hx Blood Transfusions, Hx Bone Marrow Disease, Hx Diabetes, Hx Systemic Lupus Erythematosus, Hx Sickle Cell Disease, Hx Thyroid Disease, Hx Unexplained Bleeding Cardiovascular History: Reports: Other Cardiovascular Problems/Disorders - Tachy -admitted to tele on 08/30/13 Denies: Hx Aneurysm, Hx Angina, Hx Angioplasty, Hx Auto Implanted Cardiovert Defib, Hx Cardiac Arrest, Hx Cardiomegaly, Hx Congenital Heart Disease, Hx Congestive Heart Failure, Hx Coronary Artery Disease, Hx Deep Vein Thrombosis, Hx Embolism, Hx Hypercholesterolemia, Hx Hypotension, Hx Hypertension, Hx Pacemaker/ICD, Hx Peripheral Vascular Disease, Hx Rheumatic Fever, Hx Syncope, Hx Valvular Heart Disease Respiratory History: Reports: Hx Seasonal Allergies Denies: Hx Asthma, Hx Chronic Bronchitis, Hx Chronic Obstructive Pulmonary Disease (COPD), Hx Cystic Fibrosis, Hx Lung Cancer, Hx Pleural Effusion, Hx Pneumonia, Hx Pulmonary Edema, Hx Pulmonary Embolism, Hx Sleep Apnea GI History: Reports: Hx Irritable Bowel, Other GI Disorders - hx of pancreatitis, ulcerative colitis Denies: Hx Cirrhosis, Hx Crohn's Disease, Hx Diverticulosis, Hx Gall Bladder Disease, Hx Gastroesophageal Reflux Disease, Hx Gastrointestinal Bleed, Hx Hiatal Hernia, Hx Jaundice, Hx Obstructive Bowel, Hx Ileostomy, Hx Pyloric Stenosis, Hx Ulcer Sensory History: Reports: Hx Contacts or Glasses Denies: Hx Cataracts, Hx Eye Injury, Hx Eye Prosthesis, Hx Glaucoma, Hx Legally Blind, Hx Macular Degeneration, Hx Vision Problem, Hx Deafness, Hx Hearing Aid, Hx Hearing Problem, Other Sensory Impairments Opthamlomology History: Reports: Hx Contacts or Glasses Denies: Hx Cataracts, Hx Eye Injury, Hx Eye Prosthesis, Hx Glaucoma, Hx Legally Blind, Hx Macular Degeneration, Hx Vision Problem, Other Sensory Impairments Neurological History: Reports: Hx Headaches - after remicade infusions, Hx Migraine Denies: Hx Dementia, Hx Developmental Delay, Hx Nerve Disease, Hx Seizures, Hx Spinal Cord Injury, Hx Transient Ischemic Attacks (TIA) Psychiatric History: Denies: Hx Panic Disorder - Surgical History Surgery Procedure, Year, and Place: Hammer toe corrections, tear duct, cyst removed from left wrist, tonsillectomy Hx Anesthesia Reactions: No - Immunization History Date of Tetanus Vaccine: within 10 years Date of Influenza Vaccine: none Infectious Disease History: No Infectious Disease History: Denies: Hx Clostridium Difficile, Hx Hepatitis, Hx Human Immunodeficiency Virus (HIV), Hx of Known/Suspected MRSA, Hx Shingles, Hx Tuberculosis, Hx Known/ Suspected VRE, Hx Known/Suspected VRSA, History Other Infectious Disease, Traveled Outside the [place] in Last 30 Days - Family History Known Family History: Positive: Diabetes, Other - migraines Negative: Renal Disease, Respiratory Disease, Seizure Disorder - Social History Alcohol Use: Rare Hx Substance Use: Yes Substance Use Comment - Amount & Last Used: Occassional use Hx Tobacco Use: No Smoking Status (MU): Never Smoked Tobacco Review of Systems Positive: Fever Positive: Abdominal Pain, Nausea, Other - blood in stools. Negative: Vomiting Negative: discharge Neurological: Other - light headedness All Other Systems Reviewed And Are Negative: Yes Physical Exam - Summary Physical Exam Summary: Constitutional: Well-developed, Well-nourished, Alert. (-) Distressed Skin: Warm, Dry HENT: Normocephalic; Atraumatic Eyes: Conjunctiva normal Neck: Musculoskeletal ROM normal neck. (-) JVD, (-) Stridor, (-) Tracheal deviation Cardio: Rhythm regular, rate normal, Heart sounds normal; Intact distal pulses; The pedal pulses are 2+ and symmetric. Radial pulses are 2+ and symmetric. (-) Murmur Pulmonary/Chest wall: Effort normal. (-) Respiratory distress, (-) Wheezes, (-) Rales Abd: Soft, LLQ tenderness, (-) Distension, (-) Guarding, (-) Rebound Musculoskeletal: (-) Edema Lymph: (-) Cervical adenopathy Neuro: Alert, Oriented x3 Psych: Mood and affect Normal Triage Information Reviewed: Yes Vital Signs On Initial Exam: Initial Vitals Temp Pulse Resp BP Pulse Ox 98.7 F 84 18 119/81 100 07/20/19 08:33 07/20/19 08:33 07/20/19 08:33 07/20/19 08:33 07/20/19 08:33 Vital Signs Reviewed: Yes Procedures - Sedation Patient Received Moderate/Deep Sedation with Procedure: No Diagnostics - Vital Signs Vital Signs Temp Pulse Resp BP Pulse Ox 07/20/19 08:33 98.7 F 84 18 119/81 100 - Laboratory Result Diagrams: 07/20/19 09:15 07/20/19 09:15 Lab Statement: Any lab studies that have been ordered have been reviewed, and results considered in the medical decision making process. - CT ABD/PEL CT Interpretation Completed By: Radiologist Summary of CT Findings: #. No CT evidence for colitis. #. No etiology for lower abdominal pain rectal bleeding evident. #. Mild splenomegaly new compared with the prior exam. Top normal liver size. ED physician has reviewed this report. Re-Evaluation - Re-Evaluation First Eval Re-Evaluation Time: 11:15 Change: Worse Comment: patient complaining of pain. will order morphine and Zofran Second Eval Re-Evaluation Time: 12:45 Change: Improved Comment: patient feels better after medications. she agrees to discharge Abdominal Pain Fem Course/Dx - Course Course Of Treatment: 28 year old F complains of worsening intermittent left lower abdominal pain for a few months. Hx ulcerative colitis. Sees GI at [facility]. Patient is working with her insurance to have medication change. She has not had any medications for 3 weeks. Patient reports blood in stools, low grade fever, nausea, light headedness. No vomiting, vaginal discharge. Upon exam, the abdomen is soft and non distended. There is LLQ tenderness. Bloodwork results with no significant abnormalities except for RBC 3.64, Hgb 11.9, Hct 34, MCH 33, BUN/creatinine 24.1, ESR 27. Abd/Pel CT shows per radiologist: #. No CT evidence for colitis. #. No etiology for lower abdominal pain rectal bleeding evident. #. Mild splenomegaly new compared with the prior exam. Top normal liver size. In the ED course, the patient was given normal saline fluids 2 L IV. Patient given morphine 4 mg and Zofran 4 mg. Discussed steroids with patient who notes "steroids are the only thing that help." Patient given dose of solumedrol in the ED and 4 day prescription for prednisone. Asked for GI for follow up. Patient will be discharged home. Patient was instructed to return to Emergency Department for new or worsening symptoms. Patient understands and is agreeable to this plan. - Diagnoses Provider Diagnoses: Abdominal pain Discharge ED - Sign-Out/Discharge Documenting (check all that apply): Patient Departure - Discharge Plan Condition: Stable Disposition: HOME Prescriptions: predniSONE [Prednisone 20 MG TAB] 40 mg PO DAILY #8 tablet Patient Education Materials: Abdominal Pain (ED) Forms: *Work Release Referrals: Christine Moon MD [Primary Care Provider] - 2 Days Quique Stewart MD [Medical Doctor] - Additional Instructions: Follow up with your primary care provider in 2-3 days. Return to the Emergency Department for new or worsening symptoms. - Billing Disposition and Condition Condition: STABLE Disposition: Home - Attestation Statements Document Initiated by Scribe: Yes Documenting Scribe: Cristiana Lewis Provider For Whom Jcarlose is Documenting (Include Credential): Chino Leon DO Scribe Attestation: I, Cristiana Lewis, scribed for Chino Leon DO on 07/20/19 at 1707. Scribe Documentation Reviewed: Yes Provider Attestation: The documentation as recorded by the scribe, Cristiana Lewis accurately reflects the service I personally performed and the decisions made by me, Chino Leon DO Status of Scribe Document: Viewed
[2019-07-20] MEDS ORDERED: NS 0.9% 1000 ML** 1,000 ML IV ONE ×2 (09:08→11:18)
[2019-07-20 09:22] LABS: ABS Eosinophils 0.1 10^3/ul (0-0.6); ABS Lymphocytes 1.9 10^3/ul (1.0-4.8); ABS Monocytes 0.3 10^3/ul (0-0.8); ABS Neutrophils 2.2 10^3/ul (1.5-7.7); Eosinophil % 1.3 %; Hematocrit 34 % (35-47); Hemoglobin 11.9 g/dL (12.0-16.0); Lymphocyte % 41.4 %; Mean Corpuscular HGB Conc 35 g/dL (31-36); Mean Corpuscular Hemoglobin 33 pg (27-31); Mean Corpuscular Volume 93 fL (80-97); Mean Platelet Volume 8.2 fL (7.4-10.4); Platelet Count 261 10^3/uL (150-450); Red Blood Count 3.64 10^6 /uL (3.70-4.87); Red Cell Distribution Width 13 % (10-15); White Blood Count 4.5 10^3/uL (3.5-10.8)
[2019-07-20 09:42] LABS: ALT 17 U/L (7-52); AST 16 U/L (13-39); Albumin 4.2 g/dL (3.2-5.2); Albumin/Globulin Ratio 1.4 (1-3); Alkaline Phosphatase 61 U/L (34-104); Anion Gap 6 mmol/L (2-11); BUN/Creatinine Ratio 24.1 (8-20); Blood Urea Nitrogen 19 mg/dL (6-24); C Reactive Protein 3.61 mg/L (<8.01); CO2 Carbon Dioxide 25 mmol/L (22-32); Calcium 8.8 mg/dL (8.6-10.3); Chloride 106 mmol/L (101-111); EGFR African American 103.4 (>60); EGFR Non-African American 85.5 (>60); Globulin 2.9 g/dL (2-4); Glucose 96 mg/dL (70-100); Potassium 4.2 mmol/L (3.5-5.0); Sodium 137 mmol/L (135-145); Total Protein 7.1 g/dL (6.4-8.9)
[2019-07-20 09:46] LABS: HCG Pregnancy < 0.60 mIU/mL
[2019-07-20 10:51] LABS: Erythrocyte Sed Rate 27 mm/Hr (0-19)
[2019-07-20] MEDS ORDERED: Morphine 4 MG/ML VIAL (1 ml) 4 MG/ML VIAL IV ONE (11:18)
[2019-07-20] MEDS ORDERED: Ondansetron INJ* 2 MG/ML VIAL IV ONE (11:18)
[2019-07-20] MEDS ORDERED: Iohexol 300* (CONTRAST) 10 ML SDV IV ONE (11:35)
[2019-07-20] MEDS ORDERED: methylPREDNISolone 125 MG* 2 ML VIAL IV ONE (12:47)
[2019-07-20 13:25] VITALS: BP 111/63
== END 2019-07-20 13:26 | disposition home or self-care (01) ==
LOC: ED 08:31
DX: R10.32 Left lower quadrant pain (principal); D64.9 Anemia, unspecified; Z79.899 Other long term (current) drug therapy; Z88.0 Allergy status to penicillin; Z91.040 Latex allergy status
CPT/HCPCS: 36415; 74177; 80053; 84702; 85025; 85652; 86140; 96361; 96365; 96375; 99283; J2270; J2405; J2930; Q9967

== ENCOUNTER 2019-09-06 18:41 | Emergency (ER) | payer OTHER ==
[2019-09-06 19:31] VITALS: BP 121/82
--- NOTE | 2019-09-06 20:09 | UC ---
Abdominal Pain Female HPI - HPI Summary HPI Summary: 28-year-old woman comes in with a chief complaint of abdominal pain. Patient reports she has ulcerative colitis. She feels like this is also of colitis exacerbation. Been having it for several weeks. She has been having blood in her stool which is typical of her ulcerative colitis. She does feel lightheaded at times. She just started seeing [facility]. They started on dicyclomine. Patient's been having epigastric burning and also sinusitis symptoms. She does take Zofran for nausea she's been nauseous. Reports a fever of 100.2 today. She received a voice message from [facility] today that they had sent and an order for an abdominal x-ray. Patient has not had the abdominal x-ray yet. - History of Current Complaint Chief Complaint: UCGI Stated Complaint: GI ISSUES, FEVER Time Seen by Provider: 09/06/19 19:43 Hx Last Menstrual Period: IUD Pain Intensity: 6 Allergies/Adverse Reactions: Allergies Allergy/AdvReac Type Severity Reaction Status Date / Time latex Allergy Intermediate Rash Verified 09/06/19 19:31 Penicillins Allergy Intermediate Rash Verified 09/06/19 19:31 Home Medications: Home Medications ALPRAZolam TAB* [Xanax TAB*] 2 tab PO BID PRN 05/03/19 [History Confirmed ] Prazosin 1 mg CAP [Minipress CAP*] 5 mg PO DAILY 05/30/19 [History Confirmed ] Quetiapine Fumarate [Quetiapine 100 mg] 50 mg PO BEDTIME 05/30/19 [History Confirmed 09/06/19] Dicyclomine CAP* [Bentyl CAP*] 20 mg PO QID PRN 07/20/19 [History Confirmed ] DOXYcycline CAP(*) [DOXYcycline 100MG CAP(*)] 100 mg PO BID #20 cap 09/06/19 [Rx ] Hyoscyamine TAB* [Anaspaz 0.125 MG TAB*] 0.125 mg PO Q4H PRN 09/06/19 [History Confirmed 09/06/19] Omeprazole 20 mg PO BID #30 capsule. 09/06/19 [Rx] Ondansetron ODT TAB* [Zofran 4 MG Odt TAB*] 4 mg PO Q6H PRN #10 tab.odt [Rx] predniSONE 20 mg TAB [Deltasone 20 MG TAB*] 40 mg PO DAILY #8 tab 09/06/19 [Rx] PMH/Surg Hx/FS Hx/Imm Hx Previously Healthy: Yes - ulcerative colitis Other History Of: Negative For: Anticoagulant Therapy - Surgical History Surgical History: Yes Surgery Procedure, Year, and Place: Hammer toe corrections, tear duct, cyst removed from left wrist, tonsillectomy - Family History Known Family History: Positive: Diabetes, Other - migraines Negative: Renal Disease, Respiratory Disease, Seizure Disorder - Social History Alcohol Use: Rare Alcohol Amount: None since 2016 Substance Use Type: None Substance Use Comment - Amount & Last Used: Occassional use Smoking Status (MU): Never Smoked Tobacco Household Exposure Type: Cigarettes - Immunization History Most Recent Influenza Vaccination: 03/27/18 Most Recent Tetanus Shot: 2006 Most Recent Pneumonia Vaccination: never Review of Systems All Other Systems Reviewed And Are Negative: Yes Constitutional: Positive: Fever, Other - see hpi Skin: Positive: Negative Eyes: Positive: Negative ENT: Positive: Sore Throat, Nasal Discharge, Sinus Congestion Respiratory: Positive: Negative Cardiovascular: Positive: Negative Gastrointestinal: Positive: Abdominal Pain, Nausea, Other - see hpi Motor: Positive: Negative Neurovascular: Positive: Negative Musculoskeletal: Positive: Negative Neurological/Mental Status: Positive: Negative Psychological: Positive: Negative Is Patient Immunocompromised?: No Physical Exam Triage Information Reviewed: Yes Appearance: Well-Appearing, No Pain Distress, Well-Nourished Vital Signs: Initial Vital Signs Temp 98.8 F 09/06/19 19:25 Pulse 82 09/06/19 19:25 Resp 16 09/06/19 19:25 BP 121/82 09/06/19 19:25 Pulse Ox 100 09/06/19 19:25 Vital Signs Reviewed: Yes Eye Exam: Normal Eyes: Positive: Conjunctiva Clear ENT: Positive: Pharyngeal erythema, Nasal congestion Neck: Positive: Supple Respiratory: Positive: Lungs clear, Normal breath sounds, No respiratory distress Cardiovascular: Positive: RRR Abdomen Description: Positive: Other: - Mild tenderness to palpation left lower quadrant. Hypoactive bowel sounds. No tympany no rebound. Musculoskeletal: Positive: Strength Intact, ROM Intact Neurological: Positive: Alert, Muscle Tone Normal Psychological: Positive: Age Appropriate Behavior Skin Exam: Normal Abd Pain Female Course/Dx - Course Course Of Treatment: I discussed the x-rays with the patient. I do not see any acute disease process final radiologist reading is pending. Patient reports that prednisone is what helps when her ulcerative colitis gets bad like this. Gave her 60 mg of prednisone by mouth here in clinic and wrote a prescription for 40 mg a day for the next 4 days. We discussed that the patient will follow-up with gastroenterology tomorrow to determine if they wish her to continue the prednisone or not. Also discussed that if she got worse she needed to go the emergency department. We will treat the sinusitis with doxycycline as the patient is allergic to penicillins. - Differential Dx/Diagnosis Provider Diagnosis: Abdominal pain, Sinusitis Discharge ED - Sign-Out/Discharge Documenting (check all that apply): Patient Departure All imaging exams completed and their final reports reviewed: No - Discharge Plan Condition: Stable Disposition: HOME Prescriptions: DOXYcycline CAP(*) [DOXYcycline 100MG CAP(*)] 100 mg PO BID #20 cap Omeprazole 20 mg PO BID #30 capsule. Ondansetron ODT TAB* [Zofran 4 MG Odt TAB*] 4 mg PO Q6H PRN #10 tab.odt PRN Reason: Nausea/Vomiting predniSONE 20 mg TAB [Deltasone 20 MG TAB*] 40 mg PO DAILY #8 tab Patient Education Materials: Sinusitis (ED), Abdominal Pain (ED) Referrals: Christine Moon MD [Primary Care Provider] - Marylou Osborne PA [Physician [employer]] - Additional Instructions: FOLLOW UP WITH GASTROENTEROLOGY TOMORROW. GO TO THE EMERGENCY DEPARTMENT IF NOT IMPROVED OR WORSE; PAIN, FEVER, YOU FEEL ILL, YOU FEEL LIKE PASSING OUT OR ANY QUESTIONS OR CONCERNS. - Billing Disposition and Condition Condition: STABLE Disposition: Home
--- NOTE | 2019-09-07 09:58 | UC ---
- Progress Note Progress Note: XR wet read correct Course/Dx - Diagnoses Provider Diagnoses: Abdominal pain, Sinusitis Discharge ED - Sign-Out/Discharge Documenting (check all that apply): Post-Discharge Follow Up All imaging exams completed and their final reports reviewed: Yes - Discharge Plan Condition: Stable Disposition: HOME Prescriptions: DOXYcycline CAP(*) [DOXYcycline 100MG CAP(*)] 100 mg PO BID #20 cap Omeprazole 20 mg PO BID #30 capsule. Ondansetron ODT TAB* [Zofran 4 MG Odt TAB*] 4 mg PO Q6H PRN #10 tab.odt PRN Reason: Nausea/Vomiting predniSONE 20 mg TAB [Deltasone 20 MG TAB*] 40 mg PO DAILY #8 tab Patient Education Materials: Sinusitis (ED), Abdominal Pain (ED) Referrals: Marylou Osborne PA [Physician [employer]er] - Christine Moon MD [Primary Care Provider] - Additional Instructions: FOLLOW UP WITH GASTROENTEROLOGY TOMORROW. GO TO THE EMERGENCY DEPARTMENT IF NOT IMPROVED OR WORSE; PAIN, FEVER, YOU FEEL ILL, YOU FEEL LIKE PASSING OUT OR ANY QUESTIONS OR CONCERNS. - Billing Disposition and Condition Condition: STABLE Disposition: Home
[2019-09-07 13:49] LABS: ABS Eosinophils 0.1 10^3/ul (0-0.6); ABS Lymphocytes 2.2 10^3/ul (1.0-4.8); ABS Monocytes 0.6 10^3/ul (0-0.8); ABS Neutrophils 3.8 10^3/ul (1.5-7.7); Eosinophil % 0.8 %; Hematocrit 33 % (35-47); Hemoglobin 11.8 g/dL (12.0-16.0); Lymphocyte % 33.1 %; Mean Corpuscular HGB Conc 36 g/dL (31-36); Mean Corpuscular Hemoglobin 35 pg (27-31); Mean Corpuscular Volume 99 fL (80-97); Mean Platelet Volume 9.1 fL (7.4-10.4); Nucleated Red Blood Cells % 0.2; Platelet Count 268 10^3/uL (150-450); Red Blood Count 3.33 10^6 /uL (3.70-4.87); Red Cell Distribution Width 13 % (10-15); White Blood Count 6.6 10^3/uL (3.5-10.8)
[2019-09-07 14:10] LABS: Albumin 4.3 g/dL (3.2-5.2); Albumin/Globulin Ratio 1.6 (1-3); BUN/Creatinine Ratio 19.4 (8-20); Calcium 9.8 mg/dL (8.6-10.3); EGFR Non-African American 103.3 (>60); Globulin 2.7 g/dL (2-4); Potassium 3.9 mmol/L (3.5-5.0); Total Bilirubin 0.3 mg/dL (0.2-1.0)
== END 2019-09-06 21:00 | disposition home or self-care (01) ==
LOC: UCEAST 18:41
DX: R10.9 Unspecified abdominal pain (principal); J32.9 Chronic sinusitis, unspecified; R11.0 Nausea; K51.90 Ulcerative colitis, unspecified, without complications; Z88.0 Allergy status to penicillin; Z91.040 Latex allergy status
CPT/HCPCS: 36415; 74018; 80053; 83690; 85025; 99212; G0463; J7512

== ENCOUNTER 2019-09-20 17:31 | Emergency (ER) | payer OTHER ==
[2019-09-20 18:18] LABS: ABS Eosinophils 0.1 10^3/ul (0-0.6); ABS Lymphocytes 2.2 10^3/ul (1.0-4.8); ABS Monocytes 0.5 10^3/ul (0-0.8); ABS Neutrophils 3.5 10^3/ul (1.5-7.7); Eosinophil % 1.2 %; Hematocrit 34 % (35-47); Lymphocyte % 35.1 %; Mean Corpuscular HGB Conc 35 g/dL (31-36); Mean Corpuscular Hemoglobin 32 pg (27-31); Mean Corpuscular Volume 92 fL (80-97); Mean Platelet Volume 7.9 fL (7.4-10.4); Nucleated Red Blood Cells % 0.1; Platelet Count 247 10^3/uL (150-450); Red Blood Count 3.72 10^6 /uL (3.70-4.87); Red Cell Distribution Width 13 % (10-15); White Blood Count 6.4 10^3/uL (3.5-10.8)
[2019-09-20 18:36] LABS: ALT 32 U/L (7-52); AST 25 U/L (13-39); Albumin 4.1 g/dL (3.2-5.2); Albumin/Globulin Ratio 1.4 (1-3); Alkaline Phosphatase 88 U/L (34-104); Anion Gap 6 mmol/L (2-11); BUN/Creatinine Ratio 15.6 (8-20); Blood Urea Nitrogen 12 mg/dL (6-24); C Reactive Protein 4.09 mg/L (<8.01); CO2 Carbon Dioxide 27 mmol/L (22-32); Calcium 9.3 mg/dL (8.6-10.3); Chloride 105 mmol/L (101-111); EGFR African American 106.5 (>60); Globulin 2.9 g/dL (2-4); Glucose 114 mg/dL (70-100); Potassium 4.2 mmol/L (3.5-5.0); Sodium 138 mmol/L (135-145)
[2019-09-20 18:42] LABS: HCG Pregnancy < 0.60 mIU/mL
--- NOTE | 2019-09-20 18:55 | ED ---
Abdominal Pain/Female - HPI Summary HPI Summary: Patient is a 28 year-old female presenting to [facility] with a chief complaint of abdominal pain with distension, nausea, and decreased oral intake since yesterday. Patient reports a history of ulcerative colitis with newer concern for Crohns disease by her GI specialist as she has been suffering from more frequent flare-ups over the last month. She had been continuously nauseous with vomiting and was unable to tolerate PO. She followed with her specialist, and had an XR showing extreme constipation. She was placed on a colonoscopy regimen and had felt improved with loose, watery stools. Yesterday, she felt better and was able to tolerate liquids and solids for the first time in three days. However, her nausea returned, and her abdomen has become distended. She has pain in the right abdomen and left flank. She has had blood and mucous in the stool which is typical for her flare-ups. She notes that she has slight dysuria and back pain with urination, and she has been urinating less frequently than normal secondary to her decreased PO intake. No hematuria, vaginal bleeding, or discharge. She endorses weakness, lightheadedness, and palpitations that she has also been attributing to low intake. She denies any fevers, chills, erythema of eyes, sore throat, chest pain, shortness of breath, cough, edema, or rash. Currently her pain is rated 7/10 in severity. She states her symptoms feel somewhat improved with holding her breath. She is not on medications at this time because she recently switched providers to [facility]. She has previously taken Humira, Remicade, and intermittent Prednisone. There is a plan for colonoscopy/endoscopy as her last one was over a year ago. IUD in place. Past medical history includes anemia, pancreatitis, tonsillectomy. Nonsmoker, rare EtOH, occasional substance use. Medications reviewed. Allergies noted. - History of Current Complaint Chief Complaint: EDAbdPain Stated Complaint: ABD PAIN PER PT Time Seen by Provider: 09/20/19 18:39 Hx Obtained From: Patient Hx Last Menstrual Period: IUD Onset/Duration: Gradual Onset, Lasting Weeks, Still Present Timing: Constant Severity Initially: Mild Severity Currently: Moderate Pain Intensity: 7 Pain Scale Used: 0-10 Numeric Location: Discrete At: RUQ, Discrete At: RLQ, Flank - left Radiates: No Character: Cramping Aggravating Factor(s): Food Alleviating Factor(s): Other: - holding breath Associated Signs and Symptoms: Positive: Back Pain - left, Constipation, Blood in Stool - and mucous consistent with flare-ups, Urinary Symptoms - dysuria, (- ) hematuria, Decreased Appetite, Nausea, Vomiting, Diarrhea, Other: - palpitations, general weakness, distension; Negative: chills, erythema of eyes, sore throat, shortness of breath, edema, rash. Negative: Fever, Cough, Chest Pain, Vaginal Bleeding, Vaginal Discharge Allergies/Adverse Reactions: Allergies Allergy/AdvReac Type Severity Reaction Status Date / Time latex Allergy Intermediate Rash Verified 09/20/19 17:36 Penicillins Allergy Intermediate Rash Verified 09/20/19 17:36 Home Medications: Home Medications ALPRAZolam TAB* [Xanax TAB*] 1 mg PO BID PRN 05/03/19 [History Confirmed ] DOXYcycline CAP(*) [DOXYcycline 100MG CAP(*)] 100 mg PO BID #20 cap 09/06/19 [ Rx Confirmed 09/20/19] Hyoscyamine TAB* [Anaspaz 0.125 MG TAB*] 0.125 mg PO Q4H PRN 09/06/19 [History Confirmed 09/20/19] Ondansetron ODT TAB* [Zofran 4 MG Odt TAB*] 4 mg PO Q6H PRN #10 tab.odt [Rx Confirmed 09/20/19] Bupropion XL* [Wellbutrin XL *] 150 mg PO DAILY 09/20/19 [History Confirmed ] Desvenlafaxine (NF) [Pristiq (NF)] 50 mg PO DAILY 09/20/19 [History Confirmed ] Metoclopramide TAB* [Reglan TAB*] 10 mg PO Q8H PRN #30 tab 09/20/19 [Rx] Omeprazole CAP (NF) [Prilosec CAP* 20 MG] 20 mg PO BID 09/20/19 [History Confirmed 09/20/19] Prazosin 5 mg CAP [Minipress 5 mg CAP] 5 mg PO BEDTIME 09/20/19 [History Confirmed 09/20/19] Quetiapine Fumarate [Seroquel 50 mg tab] 50 mg PO BEDTIME 09/20/19 [History Confirmed 09/20/19] PMH/Surg Hx/FS Hx/Imm Hx Endocrine/Hematology History: Reports: Hx Anemia Denies: Hx Anticoagulant Therapy, Hx Blood Disorders, Hx Blood Transfusions, Hx Bone Marrow Disease, Hx Diabetes, Hx Systemic Lupus Erythematosus, Hx Sickle Cell Disease, Hx Thyroid Disease, Hx Unexplained Bleeding Cardiovascular History: Reports: Other Cardiovascular Problems/Disorders - Tachy -[facility] 08[facility] Denies: Hx Aneurysm, Hx Angina, Hx Angioplasty, Hx Auto Implanted Cardiovert Defib, Hx Cardiac Arrest, Hx Cardiomegaly, Hx Congenital Heart Disease, Hx Congestive Heart Failure, Hx Coronary Artery Disease, Hx Deep Vein Thrombosis, Hx Embolism, Hx Hypercholesterolemia, Hx Hypotension, Hx Hypertension, Hx Pacemaker/ICD, Hx Peripheral Vascular Disease, Hx Rheumatic Fever, Hx Syncope, Hx Valvular Heart Disease Respiratory History: Reports: Hx Seasonal Allergies Denies: Hx Asthma, Hx Chronic Bronchitis, Hx Chronic Obstructive Pulmonary Disease (COPD), Hx Cystic Fibrosis, Hx Lung Cancer, Hx Pleural Effusion, Hx Pneumonia, Hx Pulmonary Edema, Hx Pulmonary Embolism, Hx Sleep Apnea GI History: Reports: Hx Irritable Bowel, Other GI Disorders - hx of pancreatitis, ulcerative colitis Denies: Hx Cirrhosis, Hx Crohn's Disease, Hx Diverticulosis, Hx Gall Bladder Disease, Hx Gastroesophageal Reflux Disease, Hx Gastrointestinal Bleed, Hx Hiatal Hernia, Hx Jaundice, Hx Obstructive Bowel, Hx Ileostomy, Hx Pyloric Stenosis, Hx Ulcer Sensory History: Reports: Hx Contacts or Glasses Denies: Hx Cataracts, Hx Eye Injury, Hx Eye Prosthesis, Hx Glaucoma, Hx Legally Blind, Hx Macular Degeneration, Hx Vision Problem, Hx Deafness, Hx Hearing Aid, Hx Hearing Problem, Other Sensory Impairments Opthamlomology History: Reports: Hx Contacts or Glasses Denies: Hx Cataracts, Hx Eye Injury, Hx Eye Prosthesis, Hx Glaucoma, Hx Legally Blind, Hx Macular Degeneration, Hx Vision Problem, Other Sensory Impairments Neurological History: Reports: Hx Headaches - after remicade infusions, Hx Migraine Denies: Hx Dementia, Hx Developmental Delay, Hx Nerve Disease, Hx Seizures, Hx Spinal Cord Injury, Hx Transient Ischemic Attacks (TIA) Psychiatric History: Denies: Hx Panic Disorder - Surgical History Surgical History: Yes Surgery Procedure, Year, and Place: Hammer toe corrections, tear duct, cyst removed from left wrist, tonsillectomy Hx Anesthesia Reactions: No - Immunization History Date of Tetanus Vaccine: within 10 years Date of Influenza Vaccine: none Infectious Disease History: No Infectious Disease History: Denies: Hx Clostridium Difficile, Hx Hepatitis, Hx Human Immunodeficiency Virus (HIV), Hx of Known/Suspected MRSA, Hx Shingles, Hx Tuberculosis, Hx Known/ Suspected VRE, Hx Known/Suspected VRSA, History Other Infectious Disease, Traveled Outside the [place] in Last 30 Days - Family History Known Family History: Positive: Diabetes, Other - migraines Negative: Renal Disease, Respiratory Disease, Seizure Disorder - Social History Alcohol Use: Rare Alcohol Amount: None since 2016 Hx Substance Use: Yes Substance Use Type: Reports: None Substance Use Comment - Amount & Last Used: Occassional use Hx Tobacco Use: No Smoking Status (MU): Never Smoked Tobacco Review of Systems Positive: Other - generalized weakness. Negative: Fever, Chills Negative: Erythema Negative: Sore Throat Positive: Palpitations. Negative: Chest Pain Negative: Shortness Of Breath, Cough Positive: Abdominal Pain, Vomiting, Diarrhea, Nausea, Other - decreased oral intake, blood and mucous in stool Positive: dysuria, flank pain - left. Negative: discharge, hematuria, other - vaginal bleeding Positive: Myalgia - left back. Negative: Edema Negative: Rash Neurological/Mental Status: Other - lightheadedness All Other Systems Reviewed And Are Negative: Yes Physical Exam - Summary Physical Exam Summary: Constitutional: Well-developed, Well-nourished, Alert. (-) Distressed Skin: Warm, Dry HENT: Normocephalic; Atraumatic Eyes: Conjunctiva normal Neck: Musculoskeletal ROM normal neck. (-) JVD, (-) Stridor, (-) Tracheal deviation Cardio: Rhythm regular, rate normal, Heart sounds normal; Intact distal pulses; The pedal pulses are 2+ and symmetric. Radial pulses are 2+ and symmetric. (-) Murmur Pulmonary/Chest wall: Effort normal. (-) Respiratory distress, (-) Wheezes, (-) Rales Abd: Soft, (+) mild epigastric tenderness, (-) Distension, (-) Guarding, (-) Rebound Musculoskeletal: (-) Edema Lymph: (-) Cervical adenopathy Neuro: Alert, Oriented x3 Psych: Mood and affect Normal Triage Information Reviewed: Yes Vital Signs On Initial Exam: Initial Vitals Temp Pulse Resp BP Pulse Ox 97.7 F 89 17 138/91 96 09/20/19 17:32 09/20/19 17:32 09/20/19 17:32 09/20/19 17:32 09/20/19 17:32 Vital Signs Reviewed: Yes Procedures - Sedation Patient Received Moderate/Deep Sedation with Procedure: No Diagnostics - Vital Signs Vital Signs Temp Pulse Resp BP Pulse Ox 09/20/19 17:32 97.7 F 89 17 138/91 96 - Laboratory Lab Results: Lab Results 09/20/19 09/20/19 09/20/19 Range/Units 18:13 18:13 18:13 WBC 6.4 (3.5-10.8) 10^3/uL RBC 3.72 (3.70-4.87) 10^6 /uL Hgb 12.0 (12.0-16.0) g/dL Hct 34 L (35-47) % MCV 92 (80-97) fL MCH 32 H (27-31) pg MCHC 35 (31-36) g/dL RDW 13 (10-15) % Plt Count 247 (150-450) 10^3/uL MPV 7.9 (7.4-10.4) fL Neut % (Auto) 55.9 % Lymph % (Auto) 35.1 % [place] % (Auto) 7.3 % Eos % (Auto) 1.2 % Baso % (Auto) 0.5 % Absolute Neuts (auto) 3.5 (1.5-7.7) 10^3/ul Absolute Lymphs (auto) 2.2 (1.0-4.8) 10^3/ul Absolute Monos (auto) 0.5 (0-0.8) 10^3/ul Absolute Eos (auto) 0.1 (0-0.6) 10^3/ul Absolute Basos (auto) 0.0 (0-0.2) 10^3/ul Absolute Nucleated RBC 0.0 10^3/ul Nucleated RBC % 0.1 Sodium 138 (135-145) mmol/L Potassium 4.2 (3.5-5.0) mmol/L Chloride 105 (101-111) mmol/L Carbon Dioxide 27 (22-32) mmol/L Anion Gap 6 (2-11) mmol/L BUN 12 (6-24) mg/dL Creatinine 0.77 (0.51-0.95) mg/dL Est GFR ( Amer) 106.5 (>60) Est GFR (Non-Af Amer) 88.0 (>60) BUN/Creatinine Ratio 15.6 (8-20) Glucose 114 H (70-100) mg/dL Lactic Acid 2.3 H* (0.5-2.0) mmol/L Calcium 9.3 (8.6-10.3) mg/dL Total Bilirubin 0.20 (0.2-1.0) mg/dL AST 25 (13-39) U/L ALT 32 (7-52) U/L Alkaline Phosphatase 88 (34-104) U/L C-Reactive Protein 4.09 (<8.01) mg/L Total Protein 7.0 (6.4-8.9) g/dL Albumin 4.1 (3.2-5.2) g/dL Globulin 2.9 (2-4) g/dL Albumin/Globulin Ratio 1.4 (1-3) Lipase 40 (11.0-82.0) U/L Beta HCG, Quant < 0.60 mIU/mL Result Diagrams: 09/20/19 18:13 09/20/19 18:13 Lab Statement: Any lab studies that have been ordered have been reviewed, and results considered in the medical decision making process. - CT Abd/Pel CT CT Interpretation Completed By: Radiologist Summary of CT Findings: Impression: Marked distention of the stomach. Findings may indicate underlying delayed motility and/or gastroparesis. Recommend GI consultation. Dr. Reich has reviewed this report. Re-Evaluation - Re-Evaluation First Eval Re-Evaluation Time: 20:10 Change: Unchanged Comment: Pain not relieved with GI cocktail, will order Morphine Second Eval Re-Evaluation Time: 21:00 Change: Improved Comment: Explained results and need for GI follow up. Patient agreeable with dispo. Abdominal Pain Fem Course/Dx - Course Course Of Treatment: 28 year-old female who has history of ulcerative colitis and suspected Crohns disease with abdominal pain/distension, nausea/vomiting, decreased oral intake for the last month which resolved after a colonoscopy regimen prescribed for constipation via XR. Symptoms returned yesterday. Blood and mucous with loose stool consistent with flare-ups. Noted dysuria/back pain on left with decreased urinary frequency secondary to dehydration. Endorses weakness, lightheadedness, and palpitations. No respiratory symptoms. Not currently on medications due to recent switch of GI specialists to [facility]. Humira, Remicade, and intermittent Prednisone in past with relief. History also includes pancreatitis. Patient has IUD. Mild epigastric tenderness on physical exam. IV access obtained. Patient received fluids, Zofran, and GI cocktail. Lab work significant for lactic acid 2.3 but is otherwise within normal limits. Urinalysis without abnormality. Abd/Pel CT shows marked distension, possibly indicating underlying delayed motility and/or gastroparesis, recommended GI consult. Patient given Morphine for pain. There is no evidence of bowel obstruction. No acute surgical abdomen today. The patient is nontoxic in appearance, tolerated oral contrast. All results discussed. Patient is safe for discharge to home with GI follow up in 3-5 days. Rx for Reglan. I did explain extrapyramidal symptoms to the patient, she is to discontinue Reglan if she notices any of the symptoms. Patient understands and agrees with plan. - Diagnoses Provider Diagnoses: Abdominal pain, Gastroparesis Discharge ED - Sign-Out/Discharge Documenting (check all that apply): Patient Departure - Patient will be discharged home. - Discharge Plan Condition: Stable Disposition: HOME Prescriptions: Metoclopramide TAB* [Reglan TAB*] 10 mg PO Q8H PRN #30 tab PRN Reason: Nausea/Vomiting Patient Education Materials: Abdominal Pain (ED), Gastroparesis (ED) Forms: *Work Release Referrals: Christine Moon MD [Primary Care Provider] - If Needed Barbara Conteh MD [Medical Doctor] - 3 Days Additional Instructions: Please take medication as prescribed. Follow up with Dr. Conteh or your GI specialist in 3-5 days. Return to the emergency department for any new or worsening symptoms. - Attestation Statements Document Initiated by Scribe: Yes Documenting Scribe: Midny Segura Provider For Whom Micaela is Documenting (Include Credential): Lucho Reich MD Scribe Attestation: Mindy Luna, scribed for Lucho Reich MD on 09/20/19 at 2101. Status of Scribe Document: Ready
[2019-09-20] MEDS ORDERED: Al Hydrox/Mg Hydrox/Simet LIQ* 30 ML UDC PO ONE (18:56)
[2019-09-20] MEDS ORDERED: Ondansetron INJ* 2 MG/ML VIAL IV ONE (18:56)
[2019-09-20] MEDS ORDERED: Lidocaine 2% VISCOUS* 15 ML UDC PO ONE (18:56)
[2019-09-20] MEDS ORDERED: NS 0.9% 1000 ML** 1,000 ML IV ONE (18:57)
[2019-09-20] MEDS ORDERED: Iohexol 300* (CONTRAST) 10 ML SDV IV ONE (19:21)
[2019-09-20] MEDS ORDERED: Morphine 4 MG/ML VIAL (1 ml) 4 MG/ML VIAL IV ONE (20:12)
[2019-09-20 20:18] LABS: Urine Appearance Turbid; Urine Bilirubin Negative (Negative); Urine Blood Negative (Negative); Urine Color Yellow; Urine Glucose Negative (Negative); Urine Ketones Negative (Negative); Urine Nitrite Negative (Negative); Urine Protein Negative (Negative); Urine Specific Gravity 1.013 (1.010-1.030); Urine Urobilinogen Negative (Negative)
[2019-09-20] MEDS ORDERED: Metoclopramide IV* 5 MG/ML 2 ML VIAL IV SLOW PU ONE (20:47)
[2019-09-20 21:28] VITALS: BP 111/72
== END 2019-09-20 21:26 | disposition home or self-care (01) ==
LOC: ED 17:31
DX: R10.9 Unspecified abdominal pain (principal); K31.84 Gastroparesis; R51 Headache; R11.2 Nausea with vomiting, unspecified; R00.2 Palpitations; Z97.5 Presence of (intrauterine) contraceptive device; Z88.0 Allergy status to penicillin; R19.7 Diarrhea, unspecified; M54.9 Dorsalgia, unspecified
CPT/HCPCS: 36415; 74177; 80053; 81003; 83605; 83690; 84702; 85025; 86140; 96361; 96374; 96375; 99283; A9270-GY; J2270; J2405; J2765; Q9967

== ENCOUNTER 2019-09-28 12:57 | Emergency (ER) | payer OTHER ==
[2019-09-28 13:02] VITALS: BP 120/84
== END 2019-09-28 14:06 | disposition left against medical advice (07) ==
LOC: ED 12:57
DX: R10.9 Unspecified abdominal pain (principal); Z53.21 Procedure and treatment not carried out due to patient leaving prior to being seen by health care provider
CPT/HCPCS: 99281

== ENCOUNTER 2019-10-16 15:08 | Emergency (ER) | payer OTHER ==
--- NOTE | 2019-10-16 15:16 | UC ---
Nausea/Vomiting/Diarrhea HPI - HPI Summary HPI Summary: Patient is a 28 year old female, who presents today to the urgent care with abdominal pain, nausea and vomiting that has been going on for quite some time. She is being currently worked up for ulcerative colitis and sees gastroenterology, Dr. Baudilio Jovel . She had MR enterography done yesterday and contrast dye has made her nausea and abdominal pain pain worse. She consulted the gastroenterology office and they recommended to go to ER yesterday. MRI report not available yet . She took Zofran last night and another dose at noon without much relief in symptoms. Has not eaten since friday, not able to tolerate by mouth at all and his multiple episodes of vomiting which is nonbilious and nonbloody. Denies any fevers or chills, cough chest pain or shortness of breath. Also she reports that she could not drive to the ER so she arrived here which was closer. She has no help available. - History of Current Complaint Stated Complaint: VOMITING Time Seen by Provider: 10/16/19 15:13 Hx Obtained From: Patient Hx Last Menstrual Period: IUD - Allergies/Home Medications Allergies/Adverse Reactions: Allergies Allergy/AdvReac Type Severity Reaction Status Date / Time latex Allergy Intermediate Rash Verified 10/16/19 16:31 Penicillins Allergy Intermediate Rash Verified 10/16/19 16:31 Home Medications: Home Medications ALPRAZolam TAB* [Xanax TAB*] 1 mg PO BID PRN 05/03/19 [History Confirmed ] DOXYcycline CAP(*) [DOXYcycline 100MG CAP(*)] 100 mg PO BID #20 cap 09/06/19 [ Rx Confirmed 10/16/19] Hyoscyamine TAB* [Anaspaz 0.125 MG TAB*] 0.125 mg PO Q4H PRN 09/06/19 [History Confirmed 10/16/19] Ondansetron ODT TAB* [Zofran 4 MG Odt TAB*] 4 mg PO Q6H PRN #10 tab.odt [Rx Confirmed 10/16/19] Bupropion XL* [Wellbutrin XL *] 150 mg PO DAILY 09/20/19 [History Confirmed ] Metoclopramide TAB* [Reglan TAB*] 10 mg PO Q8H PRN #30 tab 09/20/19 [Rx Confirmed 10/16/19] Omeprazole CAP (NF) [Prilosec CAP* 20 MG] 20 mg PO BID 09/20/19 [History Confirmed 10/16/19] Prazosin 5 mg CAP [Minipress 5 mg CAP] 5 mg PO BEDTIME 09/20/19 [History Confirmed 10/16/19] Quetiapine Fumarate [Seroquel 50 mg tab] 50 mg PO BEDTIME 09/20/19 [History Confirmed 10/16/19] PMH/Surg Hx/FS Hx/Imm Hx - Additional Past Medical History Additional PMH: Past Medical History : GI symptoms(? Ulcerative colitis) Past Surgical History: Tear duct, cyst removed from the left wrist, hammertoe corrections, tonsillectomy Family History : Diabetes mellitus Social History : Rare alcohol- none since 2016, non smoker, no drug use. Previously Healthy: No Other History Of: Negative For: Anticoagulant Therapy - Surgical History Surgical History: Yes Surgery Procedure, Year, and Place: Hammer toe corrections, tear duct, cyst removed from left wrist, tonsillectomy - Family History Known Family History: Positive: Diabetes, Other - migraines Negative: Renal Disease, Respiratory Disease, Seizure Disorder - Social History Alcohol Use: Rare Alcohol Amount: None since 2016 Substance Use Type: None Substance Use Comment - Amount & Last Used: Occassional use Smoking Status (MU): Never Smoked Tobacco Household Exposure Type: Cigarettes - Immunization History Most Recent Influenza Vaccination: 03/27/18 Most Recent Tetanus Shot: 2006 Most Recent Pneumonia Vaccination: never Review of Systems All Other Systems Reviewed And Are Negative: Yes Constitutional: Positive: Fatigue Skin: Positive: Negative Eyes: Positive: Negative ENT: Positive: Negative Respiratory: Positive: Negative Cardiovascular: Positive: Negative Gastrointestinal: Positive: Abdominal Pain, Vomiting, Nausea Genitourinary: Positive: Negative Motor: Positive: Negative Neurovascular: Positive: Negative Musculoskeletal: Positive: Negative Neurological/Mental Status: Positive: Negative Psychological: Positive: Negative Is Patient Immunocompromised?: No Physical Exam - Summary Physical Exam Summary: Physical Exam: Const: Appears well. No signs of apparent distress present. Alert and oriented x 3. Musculo: Walks with a normal gait. Head/Face: Atraumatic, normocephalic on inspection. Eyes: EOMI and PERRLA in both eyes. Conjunctivae clear. No discharge noted ENT: Hearing normal Respiratory: Respirations are unlabored. Lungs clear to auscultation bilaterally, no wheezing , rhonchi or rales noted . CVS: Regular rate and Rhythm, S1S2 normal , no murmurs identified. Extremities: Peripheral circulation is grossly normal. Pulses 2+ Abdomen : Soft , there is tenderness in left upper quadrant and epigastric area , no significant distention, Bowel sounds present . Mild guarding , no rebound tenderness or rigidity noted. Skin: No lesions or rash located on the upper extremities or on the lower extremities. Neuro: Cranial nerves II to XII intact, motor and sensory intact. DTR Intact bilaterally. Mood is normal. Affect is normal. Triage Information Reviewed: Yes Vital Signs Reviewed: Yes Naus/Vom/Diarrhea Course/Dx - Course Course Of Treatment: During the visit today, we discussed the findings and further plan. Since she has not been refilled to tolerate anything by mouth since past 4 days and not responding to Zofran with continued vomiting , we discussed that she will benefit from further evaluation in ER. Patient needs additional testing and management , thus ER transfer advised and patient agrees. She cannot drive given nausea and weakness and does not have anyone who can drive her, so planned to send her to ER via ambulance. Report called to the ER provider( Jennifer Harmon) at [facility], advised provider of the history, physical examination, and duration of illness and labs/imaging so far and the need for definitive management. Patient expressed understanding . She was transferred to ER via ambulance. Vitals stable at the time of discharge. - Differential Dx/Diagnosis Differential Diagnoses - Female: Ulcerative Colitis/Crohn's Disease Provider Diagnosis: Abdominal pain, Nausea & vomiting, History of ulcerative colitis Condition At Discharge: Stable Discharge ED - Sign-Out/Discharge Documenting (check all that apply): Patient Departure All imaging exams completed and their final reports reviewed: No Studies - Discharge Plan Condition: Stable Disposition: TRANS [facility]ARE [facility] Patient Education Materials: Abdominal Pain (ED) Referrals: Christine Moon MD [Primary Care Provider] - Additional Instructions: Patient transferred to the ER for further management via ambulance. Vitals stable at the time of discharge. - Billing Disposition and Condition Condition: STABLE Disposition: Trans Higher l of Care Fac
[2019-10-16 15:25] VITALS: BP 124/86
== END 2019-10-16 16:00 | disposition short-term general hospital (02) ==
LOC: UCEAST 15:08
DX: R10.12 Left upper quadrant pain (principal); R10.13 Epigastric pain; R11.2 Nausea with vomiting, unspecified; Z87.19 Personal history of other diseases of the digestive system; Z88.0 Allergy status to penicillin; Z91.040 Latex allergy status
CPT/HCPCS: 99213; G0463

== ENCOUNTER 2019-10-16 16:19 | Emergency (ER) | payer OTHER ==
[2019-10-16] MEDS ORDERED: NS 0.9% 1000 ML** 1,000 ML IV ONE (16:25)
[2019-10-16] MEDS ORDERED: Ondansetron INJ* 2 MG/ML VIAL IV ONE (16:25)
[2019-10-16] MEDS ORDERED: Metoclopramide IV* 5 MG/ML 2 ML VIAL IV ONE (16:32)
--- NOTE | 2019-10-16 17:02 | ED ---
Abdominal Pain/Female - HPI Summary HPI Summary: Pt is a 28yo F with a hx of UC presenting to the ED from UC with N/V and diffuse abd pain since Friday. States she has not PO intake since Fri. States she recently had an endoscopy and colonoscopy, both of which had no acute findings. She also had a MR enterography yesterday, however results were not red. She states after the contrast dye was administered, she had worsening abdominal pain. She is having nausea and vomiting 2-5 times per day. Her at home zofran medication has not been helping. Denies rectal bleeding. She also endorses SHEEHAN stating secondary likely to dehydration. - History of Current Complaint Chief Complaint: EDNauseaVomitDiarrh Stated Complaint: ABD PAIN PER EMS Time Seen by Provider: 10/16/19 16:20 Hx Obtained From: Patient Hx Last Menstrual Period: IUD ?: No Onset/Duration: Sudden Onset Timing: Constant Severity Initially: Mild Severity Currently: Mild Pain Intensity: 6 Pain Scale Used: 0-10 Numeric Radiates: No Aggravating Factor(s): Nothing Alleviating Factor(s): Nothing Associated Signs and Symptoms: Positive: Nausea, Vomiting. Negative: Fever, Cough, Chest Pain - Risk Factors Ectopic Risk Factor: Negative Ovarian Torsion Risk Factor: Negative Allergies/Adverse Reactions: Allergies Allergy/AdvReac Type Severity Reaction Status Date / Time latex Allergy Intermediate Rash Verified 10/16/19 16:31 Penicillins Allergy Intermediate Rash Verified 10/16/19 16:31 Home Medications: Home Medications ALPRAZolam TAB* [Xanax TAB*] 1 mg PO BID PRN 05/03/19 [History Confirmed ] DOXYcycline CAP(*) [DOXYcycline 100MG CAP(*)] 100 mg PO BID #20 cap 09/06/19 [ Rx Confirmed 10/16/19] Hyoscyamine TAB* [Anaspaz 0.125 MG TAB*] 0.125 mg PO Q4H PRN 09/06/19 [History Confirmed 10/16/19] Ondansetron ODT TAB* [Zofran 4 MG Odt TAB*] 4 mg PO Q6H PRN #10 tab.odt [Rx Confirmed 10/16/19] Bupropion XL* [Wellbutrin XL *] 150 mg PO DAILY 09/20/19 [History Confirmed ] Metoclopramide TAB* [Reglan TAB*] 10 mg PO Q8H PRN #30 tab 09/20/19 [Rx Confirmed 10/16/19] Omeprazole CAP (NF) [Prilosec CAP* 20 MG] 20 mg PO BID 09/20/19 [History Confirmed 10/16/19] Prazosin 5 mg CAP [Minipress 5 mg CAP] 5 mg PO BEDTIME 09/20/19 [History Confirmed 10/16/19] Quetiapine Fumarate [Seroquel 50 mg tab] 50 mg PO BEDTIME 09/20/19 [History Confirmed 10/16/19] PMH/Surg Hx/FS Hx/Imm Hx Previously Healthy: Yes Endocrine/Hematology History: Reports: Hx Anemia Denies: Hx Anticoagulant Therapy, Hx Blood Disorders, Hx Blood Transfusions, Hx Bone Marrow Disease, Hx Diabetes, Hx Systemic Lupus Erythematosus, Hx Sickle Cell Disease, Hx Thyroid Disease, Hx Unexplained Bleeding Cardiovascular History: Reports: Other Cardiovascular Problems/Disorders - Tachy -admitted to tele on 08/30/13 Denies: Hx Aneurysm, Hx Angina, Hx Angioplasty, Hx Auto Implanted Cardiovert Defib, Hx Cardiac Arrest, Hx Cardiomegaly, Hx Congenital Heart Disease, Hx Congestive Heart Failure, Hx Coronary Artery Disease, Hx Deep Vein Thrombosis, Hx Embolism, Hx Hypercholesterolemia, Hx Hypotension, Hx Hypertension, Hx Pacemaker/ICD, Hx Peripheral Vascular Disease, Hx Rheumatic Fever, Hx Syncope, Hx Valvular Heart Disease Respiratory History: Reports: Hx Seasonal Allergies Denies: Hx Asthma, Hx Chronic Bronchitis, Hx Chronic Obstructive Pulmonary Disease (COPD), Hx Cystic Fibrosis, Hx Lung Cancer, Hx Pleural Effusion, Hx Pneumonia, Hx Pulmonary Edema, Hx Pulmonary Embolism, Hx Sleep Apnea GI History: Reports: Hx Irritable Bowel, Other GI Disorders - hx of pancreatitis, ulcerative colitis Denies: Hx Cirrhosis, Hx Crohn's Disease, Hx Diverticulosis, Hx Gall Bladder Disease, Hx Gastroesophageal Reflux Disease, Hx Gastrointestinal Bleed, Hx Hiatal Hernia, Hx Jaundice, Hx Obstructive Bowel, Hx Ileostomy, Hx Pyloric Stenosis, Hx Ulcer History: Denies: Hx Dialysis, Hx Renal Disease Sensory History: Reports: Hx Contacts or Glasses Denies: Hx Cataracts, Hx Eye Injury, Hx Eye Prosthesis, Hx Glaucoma, Hx Legally Blind, Hx Macular Degeneration, Hx Vision Problem, Hx Deafness, Hx Hearing Aid, Hx Hearing Problem, Other Sensory Impairments Opthamlomology History: Reports: Hx Contacts or Glasses Denies: Hx Cataracts, Hx Eye Injury, Hx Eye Prosthesis, Hx Glaucoma, Hx Legally Blind, Hx Macular Degeneration, Hx Vision Problem, Other Sensory Impairments Neurological History: Reports: Hx Headaches - after remicade infusions, Hx Migraine Denies: Hx Dementia, Hx Developmental Delay, Hx Nerve Disease, Hx Seizures, Hx Spinal Cord Injury, Hx Transient Ischemic Attacks (TIA) Psychiatric History: Denies: Hx Panic Disorder - Surgical History Surgery Procedure, Year, and Place: Hammer toe corrections, tear duct, cyst removed from left wrist, tonsillectomy Hx Anesthesia Reactions: No - Immunization History Date of Tetanus Vaccine: within 10 years Date of Influenza Vaccine: none Hx Pertussis Vaccination: No Immunizations Up to Date: Yes Infectious Disease History: No Infectious Disease History: Denies: Hx Clostridium Difficile, Hx Hepatitis, Hx Human Immunodeficiency Virus (HIV), Hx of Known/Suspected MRSA, Hx Shingles, Hx Tuberculosis, Hx Known/ Suspected VRE, Hx Known/Suspected VRSA, History Other Infectious Disease, Traveled Outside the [place] in Last 30 Days - Family History Known Family History: Positive: Diabetes, Other - migraines Negative: Renal Disease, Respiratory Disease, Seizure Disorder - Social History Occupation: Unemployed Lives: With Family Alcohol Use: Rare Alcohol Amount: None since 2016 Hx Substance Use: Yes Substance Use Type: Reports: None Substance Use Comment - Amount & Last Used: Occassional use Hx Tobacco Use: No Smoking Status (MU): Never Smoked Tobacco Review of Systems Negative: Fever, Chills, Fatigue, Skin Diaphoresis Negative: Palpitations, Chest Pain Positive: Abdominal Pain, Vomiting, Nausea. Negative: Diarrhea Genitourinary: Negative Positive: no symptoms reported, see HPI Negative: Arthralgia, Myalgia Skin: Negative All Other Systems Reviewed And Are Negative: Yes Physical Exam Triage Information Reviewed: Yes Vital Signs On Initial Exam: Initial Vitals Temp Pulse Resp BP Pulse Ox 98.4 F 72 16 116/80 97 10/16/19 16:28 10/16/19 16:28 10/16/19 16:28 10/16/19 16:28 10/16/19 16:28 Vital Signs Reviewed: Yes Appearance: Positive: Well-Appearing, Well-Nourished Skin: Positive: Warm, Skin Color Reflects Adequate Perfusion Head/Face: Positive: Normal Head/Face Inspection Eyes: Positive: EOMI, [place], Conjunctiva Clear Neck: Positive: No Lymphadenopathy Respiratory/Lung Sounds: Positive: Clear to Auscultation, Breath Sounds Present Cardiovascular: Positive: RRR, Pulses are Symmetrical in both Upper and Lower Extremities Abdomen Description: Positive: Other: - mild tenderness throughout Musculoskeletal: Positive: Normal, Strength/ROM Intact Neurological: Positive: Speech Normal Psychiatric: Positive: Normal, Affect/Mood Appropriate Procedures - Sedation Patient Received Moderate/Deep Sedation with Procedure: No Diagnostics - Vital Signs Vital Signs Temp Pulse Resp BP Pulse Ox 10/16/19 16:28 98.4 F 72 16 116/80 97 - Laboratory Lab Statement: Any lab studies that have been ordered have been reviewed, and results considered in the medical decision making process. Abdominal Pain Fem Course/Dx - Course Course Of Treatment: Pt evaluated for N/V. Pt appears well and not severely dehydrated. No emesis on arrival. VS stable. Pt denies fevers, sweats or chills. Labs ordere and pending. Ordered NS, reglan. Lungs CTA, RRR. Mild abd tenderness throughout - worse to the LUQ. No CVA tenderness. Goal of therapy to replete fluids and control nausea. Signed out to ROBY Ko pending improvement of sxs. - Diagnoses Differential Diagnosis: Positive: Other - abd pain, n/v, dehydration, ulcerative colitis Provider Diagnoses: Nausea & vomiting - Critical Care Time Critical Care Statement: Critical care time is provided exclusive of any time spent performing procedures. Discharge ED - Sign-Out/Discharge Documenting (check all that apply): Sign-Out Patient Signing out patient TO: Ave Holden - Discharge Plan Condition: Fair Referrals: Christine Moon MD [Primary Care Provider] - - Billing Disposition and Condition Condition: FAIR
[2019-10-16 17:15] LABS: ABS Lymphocytes 2.3 10^3/ul (1.0-4.8); ABS Monocytes 0.5 10^3/ul (0-0.8); ABS Neutrophils 5.6 10^3/ul (1.5-7.7); ALT 46 U/L (7-52); Albumin 5.1 g/dL (3.2-5.2); Albumin/Globulin Ratio 1.3 (1-3); Alkaline Phosphatase 92 U/L (34-104); Amylase 19 U/L (29-103); BUN/Creatinine Ratio 15.9 (8-20); Blood Urea Nitrogen 13 mg/dL (6-24); C Reactive Protein 8.83 mg/L (<8.01); CO2 Carbon Dioxide 24 mmol/L (22-32); Calcium 10.1 mg/dL (8.6-10.3); Chloride 103 mmol/L (101-111); EGFR Non-African American 81.9 (>60); Eosinophil % 0.1 %; Globulin 3.9 g/dL (2-4); Glucose 93 mg/dL (70-100); Hematocrit 40 % (35-47); Hemoglobin 14.2 g/dL (12.0-16.0); Lymphocyte % 27.5 %; Mean Corpuscular HGB Conc 35 g/dL (31-36); Mean Corpuscular Hemoglobin 34 pg (27-31); Mean Corpuscular Volume 96 fL (80-97); Nucleated Red Blood Cells % 0.1; Red Blood Count 4.21 10^6 /uL (3.70-4.87); Red Cell Distribution Width 13 % (10-15); Sodium 136 mmol/L (135-145); White Blood Count 8.6 10^3/uL (3.5-10.8)
[2019-10-16 17:20] LABS: Anion Gap 9 mmol/L (2-11)
[2019-10-16 17:22] LABS: HCG Pregnancy < 0.60 mIU/mL
[2019-10-16 17:30] LABS: Mean Platelet Volume 8.3 fL (7.4-10.4); Platelet Count 332 10^3/uL (150-450)
--- NOTE | 2019-10-16 18:17 | ED ---
Re-Evaluation - Re-Evaluation First Eval Re-Evaluation Time: 18:15 Comment: feeling better no longer nausous Course/Dx - Course Course Of Treatment: Pt evaluated for N/V. Pt appears well and not severely dehydrated. No emesis on arrival. VS stable. Pt denies fevers, sweats or chills. Labs ordere and pending. Ordered NS, reglan. Lungs CTA, RRR. Mild abd tenderness throughout - worse to the LUQ. No CVA tenderness. Goal of therapy to replete fluids and control nausea. wbc normal. electrolytes normal. potassium hemolysised and patient has been tried multiple times with no success. as patient is feeling better will not have potassium redrawn. previous CT scans have shown gastroparesis so gave reglan for at home. will have follow up with GI. patient understand and agrees with plan. - Diagnoses Provider Diagnoses: Nausea & vomiting - Critical Care Time Critical Care Statement: Critical care time is provided exclusive of any time spent performing procedures. Discharge ED - Sign-Out/Discharge Documenting (check all that apply): Patient Departure, Receiving Sign-Out Receiving patient FROM: Jennifer Harmon - Discharge Plan Condition: Good Disposition: HOME Prescriptions: Metoclopramide TAB* [Reglan TAB*] 10 mg PO Q6H PRN #20 tab PRN Reason: Nausea/Vomiting Patient Education Materials: Gastroparesis (ED) Referrals: Christine Moon MD [Primary Care Provider] - Baudilio Jovel DO [Doctor of Osteopathy] - Additional Instructions: take Reglan every 6 hours for nausea eat small frequent meal follow up with GI within 5 days Return to ED if develop any new or worsening symptoms - Billing Disposition and Condition Condition: GOOD Disposition: Home
[2019-10-16 18:38] VITALS: BP 119/73
== END 2019-10-16 18:35 | disposition home or self-care (01) ==
LOC: ED 16:19
DX: R11.2 Nausea with vomiting, unspecified (principal); Z97.5 Presence of (intrauterine) contraceptive device; Z88.0 Allergy status to penicillin
CPT/HCPCS: 36415; 80053; 82150; 83605; 83690; 84702; 85025; 86140; 99283; J2765